=== PATIENT | female | born 1950 | race Caucasian/White ===

== ENCOUNTER 2017-11-18 18:56 | Inpatient (IN) | payer MEDICARE ==
[~2017-11-18] VITALS: Ht 162.6 cm; Wt 55.9 kg
[2017-11-19] MEDS ORDERED: MENT71OI TP (02:48)
[2017-11-19] MEDS ORDERED: ALBU2.5V5 NEB (02:48)
[2017-11-19] MEDS ORDERED: FAMO-63 PO (02:48)
[2017-11-19] MEDS ORDERED: ACET325T9 PO (02:48)
[2017-11-19] MEDS ORDERED: GUAI600T47 PO (02:48)
[2017-11-19] MEDS ORDERED: PRED-220 PO (02:48)
[2017-11-19] MEDS ORDERED: PRED20TA PO (02:48)
[2017-11-19] MEDS ORDERED: IPRA3AMP NEB (02:48)
[2017-11-19] MEDS ORDERED: MAGNESIUM HYDROXIDE 2,400 MG/30 ML ORAL.SUSP. PO PRN (12:45)
[2017-11-19] MEDS ORDERED: MAG HYDROX/AL HYDROX/SIMETH 30 ML ORAL.SUSP PO PRN (12:45)
[2017-11-19] MEDS ORDERED: METHYL SALICYLATE/MENTHOL TOPICAL OINTMENT 29GM TUBE. TP PRN (12:45)
[2017-11-19] MEDS ORDERED: ACETAMINOPHEN 325 MG TABLET PO PRN (13:00)
[2017-11-19] MEDS ORDERED: ALBUTEROL SULFATE 2.5 MG/3 ML NEBU. NEB PRN (13:00)
[2017-11-19 13:15] VITALS: BP 103/61
[2017-11-19] MEDS ORDERED: FLU VACC QS2017-18 (36MOS+)/PF 0.5 ML SYRINGE. VAX IM ONE (13:30)
[2017-11-19 14:08] LABS: BASO % 0 % (0-3); EOS % 0 % (0-3); HEMATOCRIT 39.4 % (36.0-47.0); HEMOGLOBIN 13.1 g/dL (12.0-15.5); LYMPH # 0.6 x10^3/uL (1.0-4.8); LYMPH % 4 % (24-48); MEAN CORPUSCULAR HEMOGLOBIN 29 pg (25-35); MEAN CORPUSCULAR HGB CONC 33 g/dL (31-37); MEAN CORPUSCULAR VOLUME 88 fL (79-100); MONO # 0.5 x10^3/uL (0.0-1.1); MONO % 4 % (0-9); NEUT # 12.1 x10^3uL (1.8-7.7); NEUT % 92 % (31-73); PLATELET COUNT 280 x10^3/uL (140-400); RED BLOOD COUNT 4.48 x10^6/uL (3.50-5.40); RED CELL DISTRIBUTION WIDTH 14.8 % (11.5-14.5); WHITE BLOOD COUNT 13.2 x10^3/uL (4.0-11.0)
[2017-11-19] MEDS: NICOTINE 21MG PATCH. TD SCH (14:55)
--- NOTE | 2017-11-19 15:02 | RAD ---
Indication: Increased white count. Short of breath Technique: Portable upright chest x-ray Comparison: None Findings: Heart is normal in size. Diffuse bilateral coarse interstitial opacities with focal opacity in the right lower lung zone. No pneumothorax. There is mild blunting of the left costophrenic angle. Visualized bony thorax is within normal limits. Impression: Small focal opacity in the right lower lung zone may represent pneumonia or pulmonary nodule. Coarse bilateral interstitial opacities may be secondary to chronic interstitial changes or interstitial infection. Follow-up chest x-ray recommended after medical therapy to ensure resolution.
[2017-11-19 15:03] LABS: ALBUMIN 2.6 g/dL (3.4-5.0); ALBUMIN/GLOBULIN RATIO 0.8 (1.0-1.7); CALCIUM 8.7 mg/dL (8.5-10.1); CREATININE 0.4 mg/dL (0.6-1.0); GFR 159.2; POTASSIUM 4.6 mmol/L (3.5-5.1); TOTAL BILIRUBIN 0.4 mg/dL (0.2-1.0); TOTAL PROTEIN 5.8 g/dL (6.4-8.2)
[2017-11-19 16:06] VITALS: BP 111/55
--- NOTE | 2017-11-19 16:06 | PDOC ---
Exam Note: Ryan Note: Please also refer to the separate dictated note~for this date of service dictated separately.~Patient seen individually. Discussed the patient with Nursing staff reviewed the chart.~Reviewed interim history and current functioning. Reviewed vital signs,~Labs/ Radiology~and current medications noted below. Continue current treatment with the changes noted in the dictated addendum note Assessment: Vital Signs: Vital Signs Date Time Temp Pulse Resp B/P (MAP) Pulse Ox O2 Delivery O2 Flow Rate FiO2 11/19/17 13:15 98.7 98 22 103/61 (75) 91 Nasal Cannula 5.0 Labs: Laboratory Tests Test 11/19/17 13:50 11/19/17 14:47 White Blood Count 13.2 x10^3/uL (4.0-11.0) H Red Blood Count 4.48 x10^6/uL (3.50-5.40) Hemoglobin 13.1 g/dL (12.0-15.5) Hematocrit 39.4 % (36.0-47.0) Mean Corpuscular Volume 88 fL (79-100) Mean Corpuscular Hemoglobin 29 pg (25-35) Mean Corpuscular Hemoglobin Concent 33 g/dL (31-37) Red Cell Distribution Width 14.8 % (11.5-14.5) H Platelet Count 280 x10^3/uL (140-400) Neutrophils (%) (Auto) 92 % (31-73) H Lymphocytes (%) (Auto) 4 % (24-48) L Monocytes (%) (Auto) 4 % (0-9) Eosinophils (%) (Auto) 0 % (0-3) Basophils (%) (Auto) 0 % (0-3) Neutrophils # (Auto) 12.1 x10^3uL (1.8-7.7) H Lymphocytes # (Auto) 0.6 x10^3/uL (1.0-4.8) L Monocytes # (Auto) 0.5 x10^3/uL (0.0-1.1) Eosinophils # (Auto) 0.0 x10^3/uL (0.0-0.7) Basophils # (Auto) 0.0 x10^3/uL (0.0-0.2) Magnesium Level 2.0 mg/dL (1.8-2.4) Sodium Level 134 mmol/L (136-145) L Potassium Level 4.6 mmol/L (3.5-5.1) Chloride Level 91 mmol/L (98-107) L Carbon Dioxide Level 43 mmol/L (21-32) H Anion Gap 0 (6-14) L Blood Urea Nitrogen 29 mg/dL (7-20) H Creatinine 0.4 mg/dL (0.6-1.0) L Estimated GFR (Cockcroft-Gault) 159.2 BUN/Creatinine Ratio 73 (6-20) H Glucose Level 141 mg/dL (70-99) H Calcium Level 8.7 mg/dL (8.5-10.1) Total Bilirubin 0.4 mg/dL (0.2-1.0) Aspartate Amino Transferase (AST) 109 U/L (15-37) H Alanine Aminotransferase (ALT) 221 U/L (14-59) H Alkaline Phosphatase 122 U/L (46-116) H Total Protein 5.8 g/dL (6.4-8.2) L Albumin 2.6 g/dL (3.4-5.0) L Albumin/Globulin Ratio 0.8 (1.0-1.7) L Current Medications: Meds: Current Medications Acetaminophen (Tylenol) 650 mg PRN Q6HRS PRN PO PAIN / TEMP; Start 11/19/17 at 12:45 Multi-Ingredient Ointment (Analgesic [place]) 1 jerome PRN QID PRN TP MUSCLE PAIN; Start 11/19/17 at 12:45 Al Hydroxide/Mg Hydroxide (Mylanta Plus Xs) 15 ml PRN AFTMEALHC PRN PO DYSPEPSIA; Start 11/19/17 at 12:45 Magnesium Hydroxide (Milk Of Magnesia) 2,400 mg PRN QHS PRN PO CONSTIPATION; Start 11/19/17 at 12:45 Nicotine (Nicoderm Cq 21mg) 1 patch DAILY TD Last administered on 11/19/17at 14: 55; Start 11/19/17 at 13:30 Acetaminophen (Tylenol) 650 mg PRN Q6HRS PRN PO PAIN / TEMP; Start 11/19/17 at 13:00; Stop 11/19/17 at 13:11; Status DC Albuterol Sulfate (Ventolin) 2.5 mg PRN Q4HRS PRN NEB SHORTNESS OF BREATH; Start 11/19/17 at 13:00 Famotidine (Pepcid) 20 mg DAILY PO ; Start 11/20/17 at 09:00 Guaifenesin (Mucinex Er) 600 mg BID PO ; Start 11/19/17 at 21:00 Albuterol/ Ipratropium (Duoneb) 3 ml Q4HRS W/A NEB ; Start 11/19/17 at 14:00 Calamine/Phenol (Calmoseptine) 1 jerome BID TP ; Start 11/19/17 at 21:00; Stop at 21:00; Status DC Prednisone (Prednisone) 10 mg DAILY PO ; Start 11/20/17 at 09:00; Stop 11/20/17 at 09:00; Status DC Prednisone (Prednisone) 30 mg DAILY PO ; Start 11/20/17 at 09:00; Stop 11/20/17 at 09:00; Status DC Prednisone (Prednisone) 20 mg Taper DAILY PO ; Start 11/20/17 at 09:00; Stop at 08:59 Influenza Virus Vaccine Quadrival (Fluarix Quad [id number] Syringe) 0.5 ml ONCE ONCE VAX IM ; Start 11/19/17 at 13:30; Stop 11/19/17 at 13:32; Status DC Calamine/Phenol (Calmoseptine) 1 jerome BID TP ; Start 11/19/17 at 21:00 Active Scripts Active Reported Prednisone 10 Mg Tablet 10 Mg PO DAILY 4 Days To be Started after completion of 20mg Daily order is complete. Prednisone 20 Mg Tablet 20 Mg PO DAILY 4 Days To be started after Completion of 30mg Daily order is complete Prednisone 10 Mg Tablet 30 Mg PO DAILY 4 Days Calmoseptine Ointment (Menthol/Zinc Oxide) 71 Gm Oint...g. 1 Jerome TP BID Duoneb 0.5-3(2.5) Mg/3 Ml (Albuterol/Ipratropium) 3 Ml Ampul.neb 3 Ml NEB Q4HRS W/A Mucinex (Guaifenesin) 600 Mg Tablet.er 600 Mg PO BID Pepcid (Famotidine) 20 Mg Tablet 20 Mg PO DAILY Albuterol Sulfate Neb Soln (Albuterol Sulfate) 2.5 Mg/3 Ml Vial.neb 2.5 Mg NEB PRN Q4HRS PRN Tylenol (Acetaminophen) 325 Mg Tablet 650 Mg PO PRN Q6HRS PRN I have reviewed the current psychotropics carefully including drug interactions. Risk benefit ratio favors no change other than as noted in my dictated progress note. Diagnosis: Problems: (1) Anxiety disorder (2) Dementia in Alzheimer's disease with depression (3) Dementia in Alzheimer's disease with delusions (4) Dementia, vascular, with delusions (5) Dementia, vascular, with depression (6) Major depressive disorder, recurrent episode (7) Dementia associated with alcoholism with behavioral disturbance DEMETRIUS JURADO MD Nov 19, 2017 16:06
[2017-11-19] MEDS: IPRATRPIUM/ALBUTEROL 0.5/2.5MG 3 ML NEBU. NEB SCH ×3 (16:25→21:44)
--- NOTE | 2017-11-19 16:30 | EKG ---
[address] [address] Test Date: 2017-11-19 Test Time: 16:22:30 Pat Name: MICHAEL GUERRIER Department: Room: [address] [place] [address] Gender: F [employer]: : 1950 Requested By: DEMETRIUS JURADO Order Number: [id number] Reading MD: Nakul Lewis Measurements Intervals [place] Rate: 96 P: 0 NH: 144 QRS: 40 QRSD: 68 T: 37 QT: 338 QTc: 433 Interpretive Statements SINUS RHYTHM QRS(T) CONTOUR ABNORMALITY CONSIDER ANTEROSEPTAL MYOCARDIAL DAMAGE CONSIDER INFERIOR MYOCARDIAL DAMAGE POSSIBLY ABNORMAL ECG RI6.01 No previous ECG available for comparison Electronically Signed On 12-04-2017 16:14:36 CDT by Nakul Lewis
--- NOTE | 2017-11-19 19:37 | RAD ---
Indication: Rule out DVT. TECHNIQUE: Grayscale, color Doppler and spectral waveform images of the bilateral lower extremity deep veins. COMPARISON: None FINDINGS: Right side: The interrogated right lower extremity deep veins are compressible and demonstrate evidence of blood flow with normal respiratory variation and response to augmentation. Left side: The common femoral vein, proximal and mid superficial femoral veins are compressible and demonstrate evidence of blood flow with normal respiratory variation and response augmentation. The distal superficial femoral vein and popliteal vein are not confidently visualized. Evaluation of calf veins Limited due to patient's intolerance and unable to sustain position. IMPRESSION: Suboptimal evaluation of left distal SFV, popliteal vein and calf veins due to edema and patient intolerance to pain. DVT in these segments of the vein not ruled out. Rest of the left lower extremity deep veins and right lower extremity deep veins demonstrate no sonographic evidence of acute DVT. Electronically signed by: Myles Yuen DO (11/19/2017 7:34 PM) [facility]
[2017-11-19 20:30] LABS: BGAS PH 7.5 (7.35-7.45)
[2017-11-19] MEDS: MENTHOL/ZINC OXIDE TOPICAL OINTMENT 113GM JAR. TP SCH (21:00)
[2017-11-19] MEDS ORDERED: MENTHOL/ZINC OXIDE TOPICAL OINTMENT 113GM JAR. TP SCH (21:00)
[2017-11-19] MEDS: ENOXAPARIN 40 MG/0.4 ML DISP.SYRIN. SQ SCH (21:04)
[2017-11-19 21:06] LABS: T3 TOTAL 64 ng/dL (71-180); THYROXINE 5.9 ug/dL (4.5-12.0)
--- NOTE | 2017-11-19 21:40 | CONS ---
DATE OF CONSULTATION: 11/19/2017 REASON FOR CONSULTATION: Medical management. HISTORY OF PRESENT ILLNESS: The patient is a 67-year-old female patient who was transferred to [facility] from [facility] where she was originally admitted on 11/09/2017. Apparently, the patient lives with her significant other and she was found by her children filthy. Her hair was so matted that they could not work it out. She was very withdrawn and depressed, but she denied any actually complaint except that she is hungry. She was extensively investigated at [facility] and was admitted there with community-acquired pneumonia and COPD exacerbation as well as acute hypoxic hypercapnic respiratory failure. She was treated with Rocephin and Zithromax as well as IV steroids. Apparently, she was requiring 12 liters of oxygen by nasal cannula to maintain her saturation and this has been titrated down to 5 liters by nasal cannula during her acute stay and has completed azithromycin and ceftriaxone. Her steroid dose was tapered down and she was also diagnosed with failure to thrive and there was some concern also about her safety at home given that her house has been condemned by the [facility] and was transferred to our facility. There is no mention of any psychiatric disturbances or behavioral disturbances and was admitted to [facility] for inpatient psychiatric stabilization. PAST MEDICAL HISTORY: Significant for chronic obstructive pulmonary disease. She has history of atrial fibrillation, dyslipidemia, hypertension, and myocardial infarction. She is known to have chronic constipation as well as gastroesophageal reflux disease and chronic pelvic, chronic back pain, osteoarthritis, and history of allergic rhinitis. PAST SURGICAL HISTORY: Significant for partial hysterectomy. She was . She has 4 live births. She has one miscarriage. FAMILY HISTORY: Positive for coronary artery disease and hyperlipidemia as well as alcoholism. SOCIAL HISTORY: She lives with her significant other. She continued to smoke heavily up to 3 packs a day. She does not use smokeless tobacco. She drinks 2 drinks of alcohol per day. Denied any substance abuse. MEDICATIONS AND ALLERGIES: She is allergic to DIPHENHYDRAMINE and was transferred from [facility] to continue on following medications: She was on Tylenol 650 mg every 6 hours, albuterol sulfate by nebulizer every 4 hours, famotidine 20 mg once a day, Mucinex 600 mg twice a day, DuoNeb 0.5-2.5 mg in 3 mL by nebulizer every 4 hours, prednisone 30 mg once a day in a tapering fashion and she is on Calmoseptine ointment applied twice a day to redness. REVIEW OF SYSTEMS: As per history of present illness. PHYSICAL EXAMINATION GENERAL: When I saw her this afternoon, she was resting slightly propped up in bed, slightly tachypneic, but there is no pallor, jaundice, cyanosis, or thyromegaly. No jugular distention, but mild bilateral lower limb edema. VITAL SIGNS: Her heart rate was 98, blood pressure was 111/55, temperature of 97.9, respiratory rate 24, and oxygen saturation was 94% on 5 liters of oxygen by nasal cannula. HEAD: Examination of the head, eyes, ears, nose, and throat showed normocephalic, atraumatic. NECK: Supple. HEART: Showed normal first and second heart sounds with no gallop, rub, or murmur. CHEST: Clear to auscultation. No crepitation or rhonchi. ABDOMEN: Slight distended, soft, nontender. No guarding or rigidity. No organomegaly. All hernial orifice intact. Bowel sounds normal. NEUROLOGIC: She is very withdrawn, but responds appropriately. All her cranial nerves are intact. She moves extremities without difficulty. She apparently is able to walk with a walker with standby assist. LABORATORY DATA: As of this morning showed her white cell count was 13,200, hemoglobin 13, hematocrit 39, MCV 88, and platelet count of with a manual differential showed 92% polymorphs, 4% lymphocytes, and 4% monocytes. Her chemistry showed a serum sodium 134, potassium 4.6, chloride 81, bicarbonate 43, anion gap of 0, BUN 29, creatinine was 0.4 Estimated GFR was 159 mL per minute. Her glucose was 141. Calcium was 8.7, magnesium 2. Total bilirubin is normal; however, AST, ALT, alkaline phosphatase are all elevated. Her total protein was 5.8 and albumin was 2.6. Her chest x-ray showed that there is small focal opacity in the right lower lung zone, may represent pneumonia or pulmonary nodule, has coarse bilateral interstitial opacities, may be secondary to chronic interstitial changes or interstitial infection. Followup chest x-ray is recommended. She has no pneumothorax. There is mild blunting of the left costophrenic angle. Visualized bony thorax is within normal range. IMPRESSION AND PLAN: In summary, this is a 67-year-old female patient who was transferred from [facility] where she was admitted with community-acquired pneumonia, chronic obstructive pulmonary disease exacerbation, acute hypoxic hypercapnic respiratory failure. When she was admitted there, her liver enzymes were normal. By the time she arrived here, her liver enzymes have dramatically risen. She apparently was on heparin; however, that was discontinued prior to transferring her to our facility. She has bilateral lower extremity edema and given her poor mobility and high requirement of oxygen, my plan is to arrange for her to have ABGs and bilateral lower extremity venous Doppler ultrasound. I will continue meanwhile with all this medication that she is on, probably put her on Lovenox at least for DVT prophylaxis and if there is any evidence of hypercapnic hypoxic respiratory failure or she has DVTs, we will probably have to transfer her down to stabilize her medically before she comes here. RADHA ALICEA MD DR: STANTON/denny JOB#: [id number] / [id number]
--- NOTE | 2017-11-19 22:27 | HP ---
ADMIT DATE: 11/19/2017 This note covers elements not covered in my initial note of 11/19/2017. The patient was seen at afternoon of 11/19/2017 for this evaluation. IDENTIFYING DATA: The patient is a 67-year-old female who is referred to us from [facility], where she was on the longterm care by Dr. Tao on account of very significant symptoms of depression, withdrawal from activity, refusing to use oxygen, failure of self care, increased confusion, though no past diagnosis of dementia is noted. The patient has been verbally abusive to staff, noncompliant with medications. She initially presented from home to the [facility] with hypoxemia, failure to thrive, pneumonia and chronic COPD. She had been living at home under very unhealthy conditions with sores on her bottom hair, being matted. House was described as being "awful." There is a history of daily alcohol usage of 2+ drinks a day. The patient was medically stabilized at [facility], transferred to the swing bed, been noncompliant with treatment and rehab there and then referred to us for psychiatric stabilization. CHIEF COMPLAINT: "No." The patient refuses to answer or interact to any significant extent. It is notable; however, that she does have elevated white cell count at 13.0. Chest x-ray shows pneumonia or lung nodule and Dr. Steward has been consulted for further medical management. Possible transfer to the medical/surgical floor. HISTORY OF PRESENT ILLNESS: Reportedly, the patient lives at home, has been drinking as noted above. Home has been under very unhealthy conditions and she has had no regular hygiene or nutrition before she went to [facility]. She has been depressed, withdrawn, possibly psychotic. No active suicidal or homicidal ideation other than passive suicidal ideation. No clear history of bipolar disorder. There is a history of progressive memory deficits, but the extent is unclear as it overlaps with dementia and depression. She had lost an extensive amount of weight at home. PAST PSYCHIATRIC HISTORY: As above. MEDICAL HISTORY: Positive for leukocytosis, possible pneumonia, GERD, COPD, chronic hypoxia, failure to thrive, skin breakdown on coccyx, candidiasis, current smoker, history of bronchitis. PAST SURGICAL HISTORY: Positive for hysterectomy. DIET: Regular. Accu-Cheks: None. CODE STATUS: Full code. CURRENT PSYCHOTROPICS: Negative. FAMILY HISTORY: Noncontributory. SOCIAL HISTORY: As noted above including alcohol usage and smoker. REACTION TO HOSPITALIZATION: The patient oblivious of these assets, reportedly was cognitively more oriented in the recent past. MENTAL STATUS EXAM: The patient was seen individually on afternoon of 11/19/2017. She is not very verbally nor interactive. She appears quite depressed, confused. Insight, judgment, recent and remote memory, attention, concentration, fund of knowledge poor, consistent with her diagnoses. IMPRESSION: Major depressive disorder, recurrent, severe with psychotic features; major neurocognitive disorder, possibly alcohol related, vascular with depression, delusion, behavioral disturbance; anxiety disorder, unspecified; impulse control disorder, unspecified; pneumonia, leukocytosis. Rest unchanged from above. PLAN: Admit to Geropsychiatry Unit at [facility]. I will see the patient daily individually, medical followup per Dr. Steward. Observe the patient's baseline and then make changes in psychotropics as clinically indicated. DEMETRIUS JURADO MD DR: OMAR/denny JOB#: [id number] / [id number]
--- NOTE | 2017-11-19 22:53 | PDOC ---
Exam Note: Ryan Note: Please also refer to the separate dictated note~for this date of service dictated separately.~Patient seen individually. Discussed the patient with Nursing staff reviewed the chart.~Reviewed interim history and current functioning. Reviewed vital signs,~Labs/ Radiology~and current medications noted below. Continue current treatment with the changes noted in the dictated addendum note Assessment: Vital Signs: Vital Signs Date Time Temp Pulse Resp B/P (MAP) Pulse Ox O2 Delivery O2 Flow Rate FiO2 11/19/17 21:45 91 Nasal Cannula 3.0 11/19/17 16:06 97.9 98 24 111/55 (73) Labs: Laboratory Tests Test 11/19/17 13:50 11/19/17 14:47 11/19/17 20:10 White Blood Count 13.2 x10^3/uL (4.0-11.0) H Red Blood Count 4.48 x10^6/uL (3.50-5.40) Hemoglobin 13.1 g/dL (12.0-15.5) Hematocrit 39.4 % (36.0-47.0) Mean Corpuscular Volume 88 fL (79-100) Mean Corpuscular Hemoglobin 29 pg (25-35) Mean Corpuscular Hemoglobin Concent 33 g/dL (31-37) Red Cell Distribution Width 14.8 % (11.5-14.5) H Platelet Count 280 x10^3/uL (140-400) Neutrophils (%) (Auto) 92 % (31-73) H Lymphocytes (%) (Auto) 4 % (24-48) L Monocytes (%) (Auto) 4 % (0-9) Eosinophils (%) (Auto) 0 % (0-3) Basophils (%) (Auto) 0 % (0-3) Neutrophils # (Auto) 12.1 x10^3uL (1.8-7.7) H Lymphocytes # (Auto) 0.6 x10^3/uL (1.0-4.8) L Monocytes # (Auto) 0.5 x10^3/uL (0.0-1.1) Eosinophils # (Auto) 0.0 x10^3/uL (0.0-0.7) Basophils # (Auto) 0.0 x10^3/uL (0.0-0.2) Magnesium Level 2.0 mg/dL (1.8-2.4) Thyroxine (T4) 5.9 ug/dL (4.5-12.0) Total Triiodothyronine (TT3) 64 ng/dL (71-180) L Rapid Plasma Reagin Pending Sodium Level 134 mmol/L (136-145) L Potassium Level 4.6 mmol/L (3.5-5.1) Chloride Level 91 mmol/L (98-107) L Carbon Dioxide Level 43 mmol/L (21-32) H Anion Gap 0 (6-14) L Blood Urea Nitrogen 29 mg/dL (7-20) H Creatinine 0.4 mg/dL (0.6-1.0) L Estimated GFR (Cockcroft-Gault) 159.2 BUN/Creatinine Ratio 73 (6-20) H Glucose Level 141 mg/dL (70-99) H Calcium Level 8.7 mg/dL (8.5-10.1) Total Bilirubin 0.4 mg/dL (0.2-1.0) Aspartate Amino Transferase (AST) 109 U/L (15-37) H Alanine Aminotransferase (ALT) 221 U/L (14-59) H Alkaline Phosphatase 122 U/L (46-116) H Total Protein 5.8 g/dL (6.4-8.2) L Albumin 2.6 g/dL (3.4-5.0) L Albumin/Globulin Ratio 0.8 (1.0-1.7) L Blood pH 7.50 (7.35-7.45) H Blood Gas PCO2 66 mmHg (35-45) *H Blood Gas PO2 89 mmHg (80-100) Blood Gas HCO3 51 mmol/L (22-26) H Arterial Bld O2 Saturation (Calc) 97 % (92-99) FiO2 40 % Current Medications: Meds: Current Medications Acetaminophen (Tylenol) 650 mg PRN Q6HRS PRN PO PAIN / TEMP; Start 11/19/17 at 12:45 Multi-Ingredient Ointment (Analgesic [place]) 1 jerome PRN QID PRN TP MUSCLE PAIN; Start 11/19/17 at 12:45 Al Hydroxide/Mg Hydroxide (Mylanta Plus Xs) 15 ml PRN AFTMEALHC PRN PO DYSPEPSIA; Start 11/19/17 at 12:45 Magnesium Hydroxide (Milk Of Magnesia) 2,400 mg PRN QHS PRN PO CONSTIPATION; Start 11/19/17 at 12:45 Nicotine (Nicoderm Cq 21mg) 1 patch DAILY TD Last administered on 11/19/17at 14: 55; Start 11/19/17 at 13:30 Acetaminophen (Tylenol) 650 mg PRN Q6HRS PRN PO PAIN / TEMP; Start 11/19/17 at 13:00; Stop 11/19/17 at 13:11; Status DC Albuterol Sulfate (Ventolin) 2.5 mg PRN Q4HRS PRN NEB SHORTNESS OF BREATH; Start 11/19/17 at 13:00 Famotidine (Pepcid) 20 mg DAILY PO ; Start 11/20/17 at 09:00 Guaifenesin (Mucinex Er) 600 mg BID PO Last administered on 11/19/17at 21:03; Start 11/19/17 at 21:00 Albuterol/ Ipratropium (Duoneb) 3 ml Q4HRS W/A NEB Last administered on at 21:44; Start 11/19/17 at 14:00 Calamine/Phenol (Calmoseptine) 1 jerome BID TP ; Start 11/19/17 at 21:00; Stop at 21:00; Status DC Prednisone (Prednisone) 10 mg DAILY PO ; Start 11/20/17 at 09:00; Stop 11/20/17 at 09:00; Status DC Prednisone (Prednisone) 30 mg DAILY PO ; Start 11/20/17 at 09:00; Stop 11/20/17 at 09:00; Status DC Prednisone (Prednisone) 20 mg Taper DAILY PO ; Start 11/20/17 at 09:00; Stop at 08:59 Influenza Virus Vaccine Quadrival (Fluarix Quad [id number] Syringe) 0.5 ml ONCE ONCE VAX IM ; Start 11/19/17 at 13:30; Stop 11/19/17 at 17:52; Status DC Calamine/Phenol (Calmoseptine) 1 jreome BID TP ; Start 11/19/17 at 21:00 Enoxaparin Sodium (Lovenox) 40 mg Q24H SQ Last administered on 11/19/17at 21:04 ; Start 11/19/17 at 21:00 Influenza Virus Vaccine Quadrival (Fluarix Quad [id number] Syringe) 0.5 ml ONCE ONCE VAX IM ; Start 11/20/17 at 08:00; Stop 11/20/17 at 08:01 Active Scripts Active Reported Prednisone 10 Mg Tablet 10 Mg PO DAILY 4 Days To be Started after completion of 20mg Daily order is complete. Prednisone 20 Mg Tablet 20 Mg PO DAILY 4 Days To be started after Completion of 30mg Daily order is complete Prednisone 10 Mg Tablet 30 Mg PO DAILY 4 Days Calmoseptine Ointment (Menthol/Zinc Oxide) 71 Gm Oint...g. 1 Jerome TP BID Duoneb 0.5-3(2.5) Mg/3 Ml (Albuterol/Ipratropium) 3 Ml Ampul.neb 3 Ml NEB Q4HRS W/A Mucinex (Guaifenesin) 600 Mg Tablet.er 600 Mg PO BID Pepcid (Famotidine) 20 Mg Tablet 20 Mg PO DAILY Albuterol Sulfate Neb Soln (Albuterol Sulfate) 2.5 Mg/3 Ml Vial.neb 2.5 Mg NEB PRN Q4HRS PRN Tylenol (Acetaminophen) 325 Mg Tablet 650 Mg PO PRN Q6HRS PRN I have reviewed the current psychotropics carefully including drug interactions. Risk benefit ratio favors no change other than as noted in my dictated progress note. Diagnosis: Problems: (1) Anxiety disorder (2) Major depressive disorder, recurrent episode (3) Dementia, vascular, with depression (4) Dementia, vascular, with delusions (5) Dementia in Alzheimer's disease with depression (6) Dementia in Alzheimer's disease with delusions (7) Dementia associated with alcoholism with behavioral disturbance DEMETRIUS JURADO MD Nov 19, 2017 22:53
[2017-11-20 02:11] LABS: HEMOGLOBIN A1C 6.1 % (4.8-5.6)
[2017-11-20] MEDS: IPRATRPIUM/ALBUTEROL 0.5/2.5MG 3 ML NEBU. NEB SCH ×5 (05:53→21:14)
[2017-11-20 06:52] VITALS: BP 106/57
[2017-11-20] MEDS ORDERED: FLU VACC QS2017-18 (36MOS+)/PF 0.5 ML SYRINGE. VAX IM ONE (08:00)
[2017-11-20] MEDS: NICOTINE 21MG PATCH. TD SCH (08:06)
[2017-11-20] MEDS: FAMOTIDINE 20 MG TABLET PO SCH (08:08)
[2017-11-20] MEDS: predniSONE 20 MG TABLET PO SCH (08:08)
[2017-11-20 08:17] LABS: BASO % 0 % (0-3); EOS # 0.1 x10^3/uL (0.0-0.7); EOS % 1 % (0-3); HEMATOCRIT 39.5 % (36.0-47.0); HEMOGLOBIN 13.1 g/dL (12.0-15.5); LYMPH # 3.1 x10^3/uL (1.0-4.8); LYMPH % 31 % (24-48); MEAN CORPUSCULAR HEMOGLOBIN 30 pg (25-35); MEAN CORPUSCULAR HGB CONC 33 g/dL (31-37); MEAN CORPUSCULAR VOLUME 89 fL (79-100); MONO # 0.9 x10^3/uL (0.0-1.1); MONO % 9 % (0-9); NEUT # 5.9 x10^3uL (1.8-7.7); NEUT % 59 % (31-73); PLATELET COUNT 275 x10^3/uL (140-400); RED BLOOD COUNT 4.43 x10^6/uL (3.50-5.40); RED CELL DISTRIBUTION WIDTH 14.8 % (11.5-14.5)
[2017-11-20 08:25] LABS: ALBUMIN 2.5 g/dL (3.4-5.0); ALBUMIN/GLOBULIN RATIO 0.8 (1.0-1.7); CALCIUM 8.7 mg/dL (8.5-10.1); CREATININE 0.4 mg/dL (0.6-1.0); GFR 159.2; POTASSIUM 4.1 mmol/L (3.5-5.1); TOTAL BILIRUBIN 0.5 mg/dL (0.2-1.0); TOTAL PROTEIN 5.5 g/dL (6.4-8.2)
[2017-11-20] MEDS: MENTHOL/ZINC OXIDE TOPICAL OINTMENT 113GM JAR. TP SCH ×2 (09:00→21:00)
[2017-11-20] MEDS ORDERED: predniSONE 10 MG TABLET PO SCH ×2 (09:00)
[2017-11-20 10:16] LABS: BACTERIA,URINE 0 /HPF (0-FEW); BILIRUBIN,URINE NEG (NEG); CLARITY,URINE CLEAR; COLOR,URINE YELLOW; GLUCOSE,URINE NEG (NEG); HYALINE CASTS, URINE OCC /HPF; NITRITE,URINE NEG (NEG); RBC,URINE OCC /HPF (0-2); SQUAMOUS EPITHELIAL CELL,UR FEW /LPF; UROBILINOGEN,URINE 0.2 mg/dL (0.2 mg/dL); YEAST,URINE PRESENT /HPF
[2017-11-20 16:08] VITALS: BP 94/57
--- NOTE | 2017-11-20 20:52 | PDOC ---
Exam Note: Ryan Note: Please also refer to the separate dictated note~for this date of service dictated separately.~Patient seen individually. Discussed the patient with Nursing staff reviewed the chart.~Reviewed interim history and current functioning. Reviewed vital signs,~Labs/ Radiology~and current medications noted below. Continue current treatment with the changes noted in the dictated addendum note Assessment: Vital Signs: Vital Signs Date Time Temp Pulse Resp B/P (MAP) Pulse Ox O2 Delivery O2 Flow Rate FiO2 11/20/17 16:28 96 Nasal Cannula 4.0 11/20/17 16:08 98.2 109 16 94/57 (69) I&O Intake and Output 11/20/17 07:00 Intake Total 240 ml Balance 240 ml Intake Oral 240 ml Labs: Laboratory Tests Test 11/20/17 07:38 11/20/17 09:45 White Blood Count 10.0 x10^3/uL (4.0-11.0) Red Blood Count 4.43 x10^6/uL (3.50-5.40) Hemoglobin 13.1 g/dL (12.0-15.5) Hematocrit 39.5 % (36.0-47.0) Mean Corpuscular Volume 89 fL (79-100) Mean Corpuscular Hemoglobin 30 pg (25-35) Mean Corpuscular Hemoglobin Concent 33 g/dL (31-37) Red Cell Distribution Width 14.8 % (11.5-14.5) H Platelet Count 275 x10^3/uL (140-400) Neutrophils (%) (Auto) 59 % (31-73) Lymphocytes (%) (Auto) 31 % (24-48) Monocytes (%) (Auto) 9 % (0-9) Eosinophils (%) (Auto) 1 % (0-3) Basophils (%) (Auto) 0 % (0-3) Neutrophils # (Auto) 5.9 x10^3uL (1.8-7.7) Lymphocytes # (Auto) 3.1 x10^3/uL (1.0-4.8) Monocytes # (Auto) 0.9 x10^3/uL (0.0-1.1) Eosinophils # (Auto) 0.1 x10^3/uL (0.0-0.7) Basophils # (Auto) 0.0 x10^3/uL (0.0-0.2) Sodium Level 136 mmol/L (136-145) Potassium Level 4.1 mmol/L (3.5-5.1) Chloride Level 95 mmol/L (98-107) L Carbon Dioxide Level 42 mmol/L (21-32) H Anion Gap -1 (6-14) L Blood Urea Nitrogen 17 mg/dL (7-20) Creatinine 0.4 mg/dL (0.6-1.0) L Estimated GFR (Cockcroft-Gault) 159.2 BUN/Creatinine Ratio 43 (6-20) H Glucose Level 75 mg/dL (70-99) Calcium Level 8.7 mg/dL (8.5-10.1) Total Bilirubin 0.5 mg/dL (0.2-1.0) Aspartate Amino Transferase (AST) 63 U/L (15-37) H Alanine Aminotransferase (ALT) 188 U/L (14-59) H Alkaline Phosphatase 108 U/L (46-116) OT-Idw-Q-Type Natriuretic Peptide 781 pg/mL (0-124) H Total Protein 5.5 g/dL (6.4-8.2) L Albumin 2.5 g/dL (3.4-5.0) L Albumin/Globulin Ratio 0.8 (1.0-1.7) L Triglycerides Level 129 mg/dL (0-150) Cholesterol Level 259 mg/dL (0-200) H LDL Cholesterol, Calculated 143 mg/dL (0-100) H VLDL Cholesterol, Calculated 25 mg/dL (0-40) Non-HDL Cholesterol Calculated 168 mg/dL (0-129) H HDL Cholesterol 91 mg/dL (40-60) H Cholesterol/HDL Ratio 2.0 Urine Collection Type Unknown Urine Color Yellow Urine Clarity Clear Urine pH 8.5 Urine Specific [place] 1.015 Urine Protein Neg (NEG-TRACE) Urine Glucose (UA) Neg mg/dL (NEG) Urine Ketones (Stick) Neg mg/dL (NEG) Urine Blood Neg (NEG) Urine Nitrite Neg (NEG) Urine Bilirubin Neg (NEG) Urine Urobilinogen Dipstick 0.2 mg/dL (0.2 mg/dL) Urine Leukocyte Esterase Neg (NEG) Urine RBC Occ /HPF (0-2) Urine WBC 1-4 /HPF (0-4) Urine Squamous Epithelial Cells Few /LPF Urine Transitional Epithelial Cells Occ /LPF Urine Bacteria 0 /HPF (0-FEW) Urine Hyaline Casts Occ /HPF Urine Mucus Slight /LPF Urine Yeast Present /HPF Current Medications: Meds: Current Medications Acetaminophen (Tylenol) 650 mg PRN Q6HRS PRN PO PAIN / TEMP; Start 11/19/17 at 12:45 Multi-Ingredient Ointment (Analgesic [place]) 1 jerome PRN QID PRN TP MUSCLE PAIN; Start 11/19/17 at 12:45 Al Hydroxide/Mg Hydroxide (Mylanta Plus Xs) 15 ml PRN AFTMEALHC PRN PO DYSPEPSIA; Start 11/19/17 at 12:45 Magnesium Hydroxide (Milk Of Magnesia) 2,400 mg PRN QHS PRN PO CONSTIPATION; Start 11/19/17 at 12:45 Nicotine (Nicoderm Cq 21mg) 1 patch DAILY TD Last administered on 11/20/17at 08: 06; Start 11/19/17 at 13:30 Acetaminophen (Tylenol) 650 mg PRN Q6HRS PRN PO PAIN / TEMP; Start 11/19/17 at 13:00; Stop 11/19/17 at 13:11; Status DC Albuterol Sulfate (Ventolin) 2.5 mg PRN Q4HRS PRN NEB SHORTNESS OF BREATH; Start 11/19/17 at 13:00 Famotidine (Pepcid) 20 mg DAILY PO Last administered on 11/20/17at 08:08; Start 11/20/17 at 09:00 Guaifenesin (Mucinex Er) 600 mg BID PO Last administered on 11/20/17at 08:06; Start 11/19/17 at 21:00 Albuterol/ Ipratropium (Duoneb) 3 ml Q4HRS W/A NEB Last administered on at 16:26; Start 11/19/17 at 14:00 Calamine/Phenol (Calmoseptine) 1 jerome BID TP ; Start 11/19/17 at 21:00; Stop at 21:00; Status DC Prednisone (Prednisone) 10 mg DAILY PO ; Start 11/20/17 at 09:00; Stop 11/20/17 at 09:00; Status DC Prednisone (Prednisone) 30 mg DAILY PO ; Start 11/20/17 at 09:00; Stop 11/20/17 at 09:00; Status DC Prednisone (Prednisone) 20 mg Taper DAILY PO Last administered on 11/20/17at 08: 08; Start 11/20/17 at 09:00; Stop 11/28/17 at 08:59 Influenza Virus Vaccine Quadrival (Fluarix Quad Syringe) 0.5 ml ONCE ONCE VAX IM ; Start 11/19/17 at 13:30; Stop 11/19/17 at 17:52; Status DC Calamine/Phenol (Calmoseptine) 1 jerome BID TP ; Start 11/19/17 at 21:00 Enoxaparin Sodium (Lovenox) 40 mg Q24H SQ Last administered on 11/19/17at 21:04 ; Start 11/19/17 at 21:00 Influenza Virus Vaccine Quadrival (Fluarix Quad Syringe) 0.5 ml ONCE ONCE VAX IM Last administered on 11/20/17at 18:43; Start 11/20/17 at 08:00; Stop 11/20/17 at 08:01; Status DC Betamethasone/ Clotrimazole (Lotrisone) 1 jerome BID TP ; Start 11/20/17 at 21:00 Prenat Multivit/ [place]/Iron/Folic Ac (Multivitamin ) 1 tab DAILY PO ; Start 11/21/17 at 09:00 Ascorbic Acid (Vitamin C) 500 mg DAILY PO ; Start 11/21/17 at 09:00 Zinc Sulfate (Orazinc) 220 mg DAILY PO ; Start 11/21/17 at 09:00 Active Scripts Active Reported Prednisone 10 Mg Tablet 10 Mg PO DAILY 4 Days To be Started after completion of 20mg Daily order is complete. Prednisone 20 Mg Tablet 20 Mg PO DAILY 4 Days To be started after Completion of 30mg Daily order is complete Prednisone 10 Mg Tablet 30 Mg PO DAILY 4 Days Calmoseptine Ointment (Menthol/Zinc Oxide) 71 Gm Oint...g. 1 Jerome TP BID Duoneb 0.5-3(2.5) Mg/3 Ml (Albuterol/Ipratropium) 3 Ml Ampul.neb 3 Ml NEB Q4HRS W/A Mucinex (Guaifenesin) 600 Mg Tablet.er 600 Mg PO BID Pepcid (Famotidine) 20 Mg Tablet 20 Mg PO DAILY Albuterol Sulfate Neb Soln (Albuterol Sulfate) 2.5 Mg/3 Ml Vial.neb 2.5 Mg NEB PRN Q4HRS PRN Tylenol (Acetaminophen) 325 Mg Tablet 650 Mg PO PRN Q6HRS PRN I have reviewed the current psychotropics carefully including drug interactions. Risk benefit ratio favors no change other than as noted in my dictated progress note. Diagnosis: Problems: (1) Anxiety disorder (2) Major depressive disorder, recurrent episode (3) Dementia, vascular, with depression (4) Dementia, vascular, with delusions (5) Dementia in Alzheimer's disease with depression (6) Dementia in Alzheimer's disease with delusions (7) Dementia associated with alcoholism with behavioral disturbance DEMETRIUS JURADO MD Nov 20, 2017 20:52
[2017-11-20] MEDS: CLOTRIMAZOLE/BETAMETH 1%-0.05% TOPICAL CREAM 15GM TUBE. TP SCH (21:00)
[2017-11-20] MEDS: ENOXAPARIN 40 MG/0.4 ML DISP.SYRIN. SQ SCH (21:25)
[2017-11-21] MEDS: IPRATRPIUM/ALBUTEROL 0.5/2.5MG 3 ML NEBU. NEB SCH ×5 (05:51→21:54)
[2017-11-21 06:21] VITALS: BP 127/77
[2017-11-21 06:44] LABS: BASO % 0 % (0-3); EOS # 0.1 x10^3/uL (0.0-0.7); EOS % 1 % (0-3); HEMATOCRIT 34.3 % (36.0-47.0); HEMOGLOBIN 11.5 g/dL (12.0-15.5); LYMPH # 2.9 x10^3/uL (1.0-4.8); LYMPH % 28 % (24-48); MEAN CORPUSCULAR HEMOGLOBIN 30 pg (25-35); MEAN CORPUSCULAR HGB CONC 34 g/dL (31-37); MEAN CORPUSCULAR VOLUME 89 fL (79-100); MONO % 10 % (0-9); NEUT # 6.2 x10^3uL (1.8-7.7); NEUT % 61 % (31-73); PLATELET COUNT 264 x10^3/uL (140-400); RED BLOOD COUNT 3.86 x10^6/uL (3.50-5.40); RED CELL DISTRIBUTION WIDTH 14.8 % (11.5-14.5); WHITE BLOOD COUNT 10.3 x10^3/uL (4.0-11.0)
[2017-11-21 06:55] LABS: ALBUMIN 2.2 g/dL (3.4-5.0); ALBUMIN/GLOBULIN RATIO 0.8 (1.0-1.7); CALCIUM 8.2 mg/dL (8.5-10.1); CREATININE 0.3 mg/dL (0.6-1.0); GFR 221.9; TOTAL BILIRUBIN 0.3 mg/dL (0.2-1.0)
[2017-11-21] MEDS: CLOTRIMAZOLE/BETAMETH 1%-0.05% TOPICAL CREAM 15GM TUBE. TP SCH ×2 (09:00→19:42)
[2017-11-21] MEDS: MENTHOL/ZINC OXIDE TOPICAL OINTMENT 113GM JAR. TP SCH ×2 (09:00→19:43)
[2017-11-21] MEDS: FAMOTIDINE 20 MG TABLET PO SCH (09:55)
[2017-11-21] MEDS: PRENATAL MULTIVITAMIN TABLET. PO SCH (09:56)
[2017-11-21] MEDS: ZINC SULFATE 220 MG CAPSULE. PO SCH (09:56)
[2017-11-21] MEDS: ASCORBIC ACID 500 MG TABLET PO SCH (09:57)
[2017-11-21] MEDS: predniSONE 20 MG TABLET PO SCH (09:57)
[2017-11-21] MEDS: NICOTINE 21MG PATCH. TD SCH (09:57)
[2017-11-21 11:30] VITALS: BP 134/67
[2017-11-21] MEDS: buPROPion XL 150 MG TAB.ER.24H PO SCH (14:28)
[2017-11-21 15:20] VITALS: BP 101/61
[2017-11-21] MEDS: MIRTAZAPINE 7.5 MG TABLET. PO SCH (19:41)
[2017-11-21] MEDS: ACETAMINOPHEN 325 MG TABLET PO PRN (19:41)
[2017-11-21] MEDS: ENOXAPARIN 40 MG/0.4 ML DISP.SYRIN. SQ SCH (19:41)
--- NOTE | 2017-11-21 20:45 | PN ---
DATE: 11/20/2017 PSYCHIATRIC PROGRESS NOTE This is a late entry for 11/20/2017, covers elements not covered in my initial note of 11/20/2017. SUBJECTIVE: I met with the patient in the evening of 11/20/2017. Overall, the patient is somewhat resistive to cares, refusing to answer questions, withdrawn, irritable with staff, "just leave me alone dammit." REVIEW OF SYSTEMS: Ambulation impaired, shortness of breath. No CV, , GI system symptoms on review. MENTAL STATUS EXAM: Oriented to herself. Insight, judgment, recent and remote memory, attention, concentration, fund of knowledge poor, consistent with her diagnosis. IMPRESSION: Major depressive disorder with psychotic features; major neurocognitive disorder, Alzheimer, vascular with delusion, depression. Rest unchanged. PLAN: Continue current psychotropics. Start Wellbutrin-XL 150 mg a day as an antidepressant. Adjust further as clinically indicated. DEMETRIUS JURADO MD DR: OMAR/denny JOB#: [id number] / [id number]
--- NOTE | 2017-11-21 21:01 | PDOC ---
Exam Note: Ryan Note: Please also refer to the separate dictated note~for this date of service dictated separately.~Patient seen individually. Discussed the patient with Nursing staff reviewed the chart.~Reviewed interim history and current functioning. Reviewed vital signs,~Labs/ Radiology~and current medications noted below. Continue current treatment with the changes noted in the dictated addendum note Assessment: Vital Signs: Vital Signs Date Time Temp Pulse Resp B/P (MAP) Pulse Ox O2 Delivery O2 Flow Rate FiO2 11/21/17 16:30 92 Nasal Cannula 3.0 11/21/17 15:20 98.0 92 18 101/61 (74) I&O Intake and Output 11/21/17 07:00 Intake Total 2009 ml Balance 2009 ml Intake Oral 2009 ml # Bowel Movements 1 Labs: Laboratory Tests Test 11/21/17 06:13 White Blood Count 10.3 x10^3/uL (4.0-11.0) Red Blood Count 3.86 x10^6/uL (3.50-5.40) Hemoglobin 11.5 g/dL (12.0-15.5) L Hematocrit 34.3 % (36.0-47.0) L Mean Corpuscular Volume 89 fL (79-100) Mean Corpuscular Hemoglobin 30 pg (25-35) Mean Corpuscular Hemoglobin Concent 34 g/dL (31-37) Red Cell Distribution Width 14.8 % (11.5-14.5) H Platelet Count 264 x10^3/uL (140-400) Neutrophils (%) (Auto) 61 % (31-73) Lymphocytes (%) (Auto) 28 % (24-48) Monocytes (%) (Auto) 10 % (0-9) H Eosinophils (%) (Auto) 1 % (0-3) Basophils (%) (Auto) 0 % (0-3) Neutrophils # (Auto) 6.2 x10^3uL (1.8-7.7) Lymphocytes # (Auto) 2.9 x10^3/uL (1.0-4.8) Monocytes # (Auto) 1.0 x10^3/uL (0.0-1.1) Eosinophils # (Auto) 0.1 x10^3/uL (0.0-0.7) Basophils # (Auto) 0.0 x10^3/uL (0.0-0.2) Sodium Level 135 mmol/L (136-145) L Potassium Level 4.0 mmol/L (3.5-5.1) Chloride Level 97 mmol/L (98-107) L Carbon Dioxide Level 39 mmol/L (21-32) H Anion Gap -1 (6-14) L Blood Urea Nitrogen 21 mg/dL (7-20) H Creatinine 0.3 mg/dL (0.6-1.0) L Estimated GFR (Cockcroft-Gault) 221.9 BUN/Creatinine Ratio 70 (6-20) H Glucose Level 96 mg/dL (70-99) Calcium Level 8.2 mg/dL (8.5-10.1) L Total Bilirubin 0.3 mg/dL (0.2-1.0) Aspartate Amino Transferase (AST) 54 U/L (15-37) H Alanine Aminotransferase (ALT) 178 U/L (14-59) H Alkaline Phosphatase 97 U/L (46-116) Total Protein 5.0 g/dL (6.4-8.2) L Albumin 2.2 g/dL (3.4-5.0) L Albumin/Globulin Ratio 0.8 (1.0-1.7) L Current Medications: Meds: Current Medications Acetaminophen (Tylenol) 650 mg PRN Q6HRS PRN PO PAIN / TEMP Last administered on 11/21/17at 19:41; Start 11/19/17 at 12:45 Multi-Ingredient Ointment (Analgesic [place]) 1 jerome PRN QID PRN TP MUSCLE PAIN; Start 11/19/17 at 12:45 Al Hydroxide/Mg Hydroxide (Mylanta Plus Xs) 15 ml PRN AFTMEALHC PRN PO DYSPEPSIA; Start 11/19/17 at 12:45 Magnesium Hydroxide (Milk Of Magnesia) 2,400 mg PRN QHS PRN PO CONSTIPATION; Start 11/19/17 at 12:45 Nicotine (Nicoderm Cq 21mg) 1 patch DAILY TD Last administered on 11/21/17at 09: 57; Start 11/19/17 at 13:30 Acetaminophen (Tylenol) 650 mg PRN Q6HRS PRN PO PAIN / TEMP; Start 11/19/17 at 13:00; Stop 11/19/17 at 13:11; Status DC Albuterol Sulfate (Ventolin) 2.5 mg PRN Q4HRS PRN NEB SHORTNESS OF BREATH; Start 11/19/17 at 13:00 Famotidine (Pepcid) 20 mg DAILY PO Last administered on 11/21/17at 09:55; Start 11/20/17 at 09:00 Guaifenesin (Mucinex Er) 600 mg BID PO Last administered on 11/21/17at 19:40; Start 11/19/17 at 21:00 Albuterol/ Ipratropium (Duoneb) 3 ml Q4HRS W/A NEB Last administered on at 16:30; Start 11/19/17 at 14:00 Calamine/Phenol (Calmoseptine) 1 jerome BID TP ; Start 11/19/17 at 21:00; Stop at 21:00; Status DC Prednisone (Prednisone) 10 mg DAILY PO ; Start 11/20/17 at 09:00; Stop 11/20/17 at 09:00; Status DC Prednisone (Prednisone) 30 mg DAILY PO ; Start 11/20/17 at 09:00; Stop 11/20/17 at 09:00; Status DC Prednisone (Prednisone) 20 mg Taper DAILY PO Last administered on 11/21/17at 09: 57; Start 11/20/17 at 09:00; Stop 11/28/17 at 08:59 Influenza Virus Vaccine Quadrival (Fluarix Quad [id number] Syringe) 0.5 ml ONCE ONCE VAX IM ; Start 11/19/17 at 13:30; Stop 11/19/17 at 17:52; Status DC Calamine/Phenol (Calmoseptine) 1 jerome BID TP ; Start 11/19/17 at 21:00 Enoxaparin Sodium (Lovenox) 40 mg Q24H SQ Last administered on 11/21/17at 19:41 ; Start 11/19/17 at 21:00 Influenza Virus Vaccine Quadrival (Fluarix Quad [id number] Syringe) 0.5 ml ONCE ONCE VAX IM Last administered on 11/20/17at 18:43; Start 11/20/17 at 08:00; Stop 11/20/17 at 08:01; Status DC Betamethasone/ Clotrimazole (Lotrisone) 1 jerome BID TP Last administered on at 19:42; Start 11/20/17 at 21:00 Prenat Multivit/ [place]/Iron/Folic Ac (Multivitamin ) 1 tab DAILY PO Last administered on 11/21/17at 09:56; Start 11/21/17 at 09:00 Ascorbic Acid (Vitamin C) 500 mg DAILY PO Last administered on 11/21/17at 09:57 ; Start 11/21/17 at 09:00 Zinc Sulfate (Orazinc) 220 mg DAILY PO Last administered on 11/21/17at 09:56; Start 11/21/17 at 09:00 Bupropion HCl (Wellbutrin Xl) 150 mg DAILY PO Last administered on 11/21/17at 14 :28; Start 11/21/17 at 13:15 Mirtazapine (Remeron) 7.5 mg QHS PO Last administered on 11/21/17at 19:41; Start 11/21/17 at 21:00 Active Scripts Active Reported Prednisone 10 Mg Tablet 10 Mg PO DAILY 4 Days To be Started after completion of 20mg Daily order is complete. Prednisone 20 Mg Tablet 20 Mg PO DAILY 4 Days To be started after Completion of 30mg Daily order is complete Prednisone 10 Mg Tablet 30 Mg PO DAILY 4 Days Calmoseptine Ointment (Menthol/Zinc Oxide) 71 Gm Oint...g. 1 [place] TP BID Duoneb 0.5-3(2.5) Mg/3 Ml (Albuterol/Ipratropium) 3 Ml Ampul.neb 3 Ml NEB Q4HRS W/A Mucinex (Guaifenesin) 600 Mg Tablet.er 600 Mg PO BID Pepcid (Famotidine) 20 Mg Tablet 20 Mg PO DAILY Albuterol Sulfate Neb Soln (Albuterol Sulfate) 2.5 Mg/3 Ml Vial.neb 2.5 Mg NEB PRN Q4HRS PRN Tylenol (Acetaminophen) 325 Mg Tablet 650 Mg PO PRN Q6HRS PRN I have reviewed the current psychotropics carefully including drug interactions. Risk benefit ratio favors no change other than as noted in my dictated progress note. Diagnosis: Problems: (1) Anxiety disorder (2) Major depressive disorder, recurrent episode (3) Dementia, vascular, with depression (4) Dementia, vascular, with delusions (5) Dementia in Alzheimer's disease with depression (6) Dementia in Alzheimer's disease with delusions (7) Dementia associated with alcoholism with behavioral disturbance DEMETRIUS JURADO MD Nov 21, 2017 21:01
[2017-11-22 06:08] VITALS: BP 125/68
[2017-11-22] MEDS: IPRATRPIUM/ALBUTEROL 0.5/2.5MG 3 ML NEBU. NEB SCH ×5 (06:08→22:35)
[2017-11-22] MEDS: NICOTINE 21MG PATCH. TD SCH ×2 (09:00→11:02)
[2017-11-22] MEDS: MENTHOL/ZINC OXIDE TOPICAL OINTMENT 113GM JAR. TP SCH ×2 (09:00→19:28)
[2017-11-22] MEDS: buPROPion XL 150 MG TAB.ER.24H PO SCH (11:01)
[2017-11-22] MEDS: PRENATAL MULTIVITAMIN TABLET. PO SCH (11:01)
[2017-11-22] MEDS: ASCORBIC ACID 500 MG TABLET PO SCH (11:01)
[2017-11-22] MEDS: FAMOTIDINE 20 MG TABLET PO SCH (11:01)
[2017-11-22] MEDS: predniSONE 20 MG TABLET PO SCH (11:01)
[2017-11-22] MEDS: ZINC SULFATE 220 MG CAPSULE. PO SCH (11:02)
[2017-11-22] MEDS: CLOTRIMAZOLE/BETAMETH 1%-0.05% TOPICAL CREAM 15GM TUBE. TP SCH ×2 (11:06→19:28)
[2017-11-22 15:11] LABS: BASO # 0.1 x10^3/uL (0.0-0.2); BASO % 0 % (0-3); EOS % 0 % (0-3); HEMATOCRIT 36.6 % (36.0-47.0); HEMOGLOBIN 12.1 g/dL (12.0-15.5); LYMPH # 0.7 x10^3/uL (1.0-4.8); LYMPH % 6 % (24-48); MEAN CORPUSCULAR HEMOGLOBIN 29 pg (25-35); MEAN CORPUSCULAR HGB CONC 33 g/dL (31-37); MEAN CORPUSCULAR VOLUME 88 fL (79-100); MONO # 0.6 x10^3/uL (0.0-1.1); MONO % 5 % (0-9); NEUT # 11.6 x10^3uL (1.8-7.7); NEUT % 89 % (31-73); PLATELET COUNT 297 x10^3/uL (140-400); RED BLOOD COUNT 4.15 x10^6/uL (3.50-5.40); RED CELL DISTRIBUTION WIDTH 14.8 % (11.5-14.5); WHITE BLOOD COUNT 13.1 x10^3/uL (4.0-11.0)
[2017-11-22 15:31] LABS: ALBUMIN 2.4 g/dL (3.4-5.0); ALBUMIN/GLOBULIN RATIO 0.8 (1.0-1.7); CALCIUM 8.7 mg/dL (8.5-10.1); CREATININE 0.4 mg/dL (0.6-1.0); GFR 159.2; POTASSIUM 4.8 mmol/L (3.5-5.1); TOTAL BILIRUBIN 0.3 mg/dL (0.2-1.0); TOTAL PROTEIN 5.6 g/dL (6.4-8.2)
[2017-11-22 15:54] VITALS: BP 101/61
--- NOTE | 2017-11-22 18:03 | PN ---
DATE: 11/21/2017 PSYCHIATRIC PROGRESS NOTE This is a late entry for 11/21/2017, covers elements not covered in my initial note of 11/21/2017. SUBJECTIVE: I met with the patient in the evening of 11/21/2017. The patient slept just 4 hours previous evening, somewhat withdrawn, depressed and angry per nursing report, irritable with staff asking them to get away from her as they administer her medications. Her daughter visited her and the patient just laid with her head down. REVIEW OF SYSTEMS: Ambulation impaired, in wheelchair. No CV, , pulmonary, eye system symptoms on review. MENTAL STATUS EXAM: Oriented to herself and situation. Speech moderate latency, often responses monosyllabic. Abstraction fair, computation impaired, language function intact, attention span short. Mood and affect still depressed. LABORATORY DATA: Reviewed. IMPRESSION: Major depressive disorder with psychotic features in partial remission; cognitive disorder, unspecified. PLAN: Start Remeron 7.5 mg p.o. at bedtime to augment the Wellbutrin to help with the insomnia. Continue Wellbutrin-XL 150 mg a day. We will increase this gradually. DEMETRIUS JURADO MD DR: OMAR/denny JOB#: [id number] / [id number]
[2017-11-22] MEDS: MIRTAZAPINE 7.5 MG TABLET. PO SCH (19:25)
[2017-11-22] MEDS: ENOXAPARIN 40 MG/0.4 ML DISP.SYRIN. SQ SCH (19:27)
--- NOTE | 2017-11-22 20:49 | PDOC ---
Exam Note: Ryan Note: Please also refer to the separate dictated note~for this date of service dictated separately.~Patient seen individually. Discussed the patient with Nursing staff reviewed the chart.~Reviewed interim history and current functioning. Reviewed vital signs,~Labs/ Radiology~and current medications noted below. Continue current treatment with the changes noted in the dictated addendum note Assessment: Vital Signs: Vital Signs Date Time Temp Pulse Resp B/P (MAP) Pulse Ox O2 Delivery O2 Flow Rate FiO2 11/22/17 16:25 94 Nasal Cannula 3.0 11/22/17 15:54 98.4 100 20 101/61 (74) I&O Intake and Output 11/22/17 07:00 Intake Total 1200 ml Balance 1200 ml Intake Oral 1200 ml # Voids 2 Labs: Laboratory Tests Test 11/22/17 14:55 White Blood Count 13.1 x10^3/uL (4.0-11.0) H Red Blood Count 4.15 x10^6/uL (3.50-5.40) Hemoglobin 12.1 g/dL (12.0-15.5) Hematocrit 36.6 % (36.0-47.0) Mean Corpuscular Volume 88 fL (79-100) Mean Corpuscular Hemoglobin 29 pg (25-35) Mean Corpuscular Hemoglobin Concent 33 g/dL (31-37) Red Cell Distribution Width 14.8 % (11.5-14.5) H Platelet Count 297 x10^3/uL (140-400) Neutrophils (%) (Auto) 89 % (31-73) H Lymphocytes (%) (Auto) 6 % (24-48) L Monocytes (%) (Auto) 5 % (0-9) Eosinophils (%) (Auto) 0 % (0-3) Basophils (%) (Auto) 0 % (0-3) Neutrophils # (Auto) 11.6 x10^3uL (1.8-7.7) H Lymphocytes # (Auto) 0.7 x10^3/uL (1.0-4.8) L Monocytes # (Auto) 0.6 x10^3/uL (0.0-1.1) Eosinophils # (Auto) 0.0 x10^3/uL (0.0-0.7) Basophils # (Auto) 0.1 x10^3/uL (0.0-0.2) Sodium Level 135 mmol/L (136-145) L Potassium Level 4.8 mmol/L (3.5-5.1) Chloride Level 96 mmol/L (98-107) L Carbon Dioxide Level 37 mmol/L (21-32) H Anion Gap 2 (6-14) L Blood Urea Nitrogen 20 mg/dL (7-20) Creatinine 0.4 mg/dL (0.6-1.0) L Estimated GFR (Cockcroft-Gault) 159.2 BUN/Creatinine Ratio 50 (6-20) H Glucose Level 133 mg/dL (70-99) H Calcium Level 8.7 mg/dL (8.5-10.1) Total Bilirubin 0.3 mg/dL (0.2-1.0) Aspartate Amino Transferase (AST) 37 U/L (15-37) Alanine Aminotransferase (ALT) 147 U/L (14-59) H Alkaline Phosphatase 112 U/L (46-116) Total Protein 5.6 g/dL (6.4-8.2) L Albumin 2.4 g/dL (3.4-5.0) L Albumin/Globulin Ratio 0.8 (1.0-1.7) L Current Medications: Meds: Current Medications Acetaminophen (Tylenol) 650 mg PRN Q6HRS PRN PO PAIN / TEMP Last administered on 11/21/17at 19:41; Start 11/19/17 at 12:45 Multi-Ingredient Ointment (Analgesic [place]) 1 jerome PRN QID PRN TP MUSCLE PAIN; Start 11/19/17 at 12:45 Al Hydroxide/Mg Hydroxide (Mylanta Plus Xs) 15 ml PRN AFTMEALHC PRN PO DYSPEPSIA; Start 11/19/17 at 12:45 Magnesium Hydroxide (Milk Of Magnesia) 2,400 mg PRN QHS PRN PO CONSTIPATION; Start 11/19/17 at 12:45 Nicotine (Nicoderm Cq 21mg) 1 patch DAILY TD Last administered on 11/21/17at 09: 57; Start 11/19/17 at 13:30 Acetaminophen (Tylenol) 650 mg PRN Q6HRS PRN PO PAIN / TEMP; Start 11/19/17 at 13:00; Stop 11/19/17 at 13:11; Status DC Albuterol Sulfate (Ventolin) 2.5 mg PRN Q4HRS PRN NEB SHORTNESS OF BREATH; Start 11/19/17 at 13:00 Famotidine (Pepcid) 20 mg DAILY PO Last administered on 11/22/17at 11:01; Start 11/20/17 at 09:00 Guaifenesin (Mucinex Er) 600 mg BID PO Last administered on 11/22/17at 19:25; Start 11/19/17 at 21:00 Albuterol/ Ipratropium (Duoneb) 3 ml Q4HRS W/A NEB Last administered on at 16:23; Start 11/19/17 at 14:00 Calamine/Phenol (Calmoseptine) 1 jerome BID TP ; Start 11/19/17 at 21:00; Stop at 21:00; Status DC Prednisone (Prednisone) 10 mg DAILY PO ; Start 11/20/17 at 09:00; Stop 11/20/17 at 09:00; Status DC Prednisone (Prednisone) 30 mg DAILY PO ; Start 11/20/17 at 09:00; Stop 11/20/17 at 09:00; Status DC Prednisone (Prednisone) 20 mg Taper DAILY PO Last administered on 11/22/17at 11: 01; Start 11/20/17 at 09:00; Stop 11/28/17 at 08:59 Influenza Virus Vaccine Quadrival (Fluarix Quad [id number] Syringe) 0.5 ml ONCE ONCE VAX IM ; Start 11/19/17 at 13:30; Stop 11/19/17 at 17:52; Status DC Calamine/Phenol (Calmoseptine) 1 jerome BID TP ; Start 11/19/17 at 21:00 Enoxaparin Sodium (Lovenox) 40 mg Q24H SQ Last administered on 11/22/17at 19:27 ; Start 11/19/17 at 21:00 Influenza Virus Vaccine Quadrival (Fluarix Quad Syringe) 0.5 ml ONCE ONCE VAX IM Last administered on 11/20/17at 18:43; Start 11/20/17 at 08:00; Stop 11/20/17 at 08:01; Status DC Betamethasone/ Clotrimazole (Lotrisone) 1 jerome BID TP Last administered on at 19:28; Start 11/20/17 at 21:00 Prenat Multivit/ [place]/Iron/Folic Ac (Multivitamin ) 1 tab DAILY PO Last administered on 11/22/17at 11:01; Start 11/21/17 at 09:00 Ascorbic Acid (Vitamin C) 500 mg DAILY PO Last administered on 11/22/17at 11:01 ; Start 11/21/17 at 09:00 Zinc Sulfate (Orazinc) 220 mg DAILY PO Last administered on 11/22/17at 11:02; Start 11/21/17 at 09:00 Bupropion HCl (Wellbutrin Xl) 150 mg DAILY PO Last administered on 11/22/17at 11 :01; Start 11/21/17 at 13:15; Stop 11/22/17 at 18:19; Status DC Mirtazapine (Remeron) 7.5 mg QHS PO Last administered on 11/22/17at 19:25; Start 11/21/17 at 21:00 Bupropion HCl (Wellbutrin Xl) 300 mg DAILY PO ; Start 11/23/17 at 09:00 Active Scripts Active Reported Prednisone 10 Mg Tablet 10 Mg PO DAILY 4 Days To be Started after completion of 20mg Daily order is complete. Prednisone 20 Mg Tablet 20 Mg PO DAILY 4 Days To be started after Completion of 30mg Daily order is complete Prednisone 10 Mg Tablet 30 Mg PO DAILY 4 Days Calmoseptine Ointment (Menthol/Zinc Oxide) 71 Gm Oint...g. 1 [place] TP BID Duoneb 0.5-3(2.5) Mg/3 Ml (Albuterol/Ipratropium) 3 Ml Ampul.neb 3 Ml NEB Q4HRS W/A Mucinex (Guaifenesin) 600 Mg Tablet.er 600 Mg PO BID Pepcid (Famotidine) 20 Mg Tablet 20 Mg PO DAILY Albuterol Sulfate Neb Soln (Albuterol Sulfate) 2.5 Mg/3 Ml Vial.neb 2.5 Mg NEB PRN Q4HRS PRN Tylenol (Acetaminophen) 325 Mg Tablet 650 Mg PO PRN Q6HRS PRN I have reviewed the current psychotropics carefully including drug interactions. Risk benefit ratio favors no change other than as noted in my dictated progress note. Diagnosis: Problems: (1) Anxiety disorder (2) Major depressive disorder, recurrent episode (3) Dementia, vascular, with depression (4) Dementia, vascular, with delusions (5) Dementia in Alzheimer's disease with depression (6) Dementia in Alzheimer's disease with delusions (7) Dementia associated with alcoholism with behavioral disturbance DEMETRISU JURADO MD Nov 22, 2017 20:49
[2017-11-23 05:53] VITALS: BP 116/60
[2017-11-23] MEDS: IPRATRPIUM/ALBUTEROL 0.5/2.5MG 3 ML NEBU. NEB SCH ×4 (06:04→21:28)
[2017-11-23] MEDS: ZINC SULFATE 220 MG CAPSULE. PO SCH (08:16)
[2017-11-23] MEDS: ASCORBIC ACID 500 MG TABLET PO SCH (08:16)
[2017-11-23] MEDS: PRENATAL MULTIVITAMIN TABLET. PO SCH (08:17)
[2017-11-23] MEDS: FAMOTIDINE 20 MG TABLET PO SCH (08:17)
[2017-11-23] MEDS: NICOTINE 21MG PATCH. TD SCH (08:17)
[2017-11-23] MEDS: predniSONE 20 MG TABLET PO SCH (08:17)
[2017-11-23] MEDS: buPROPion XL 300 MG TAB.ER.24H. PO SCH (08:18)
--- NOTE | 2017-11-23 08:20 | RAD ---
Single view of the Chest 11/23/2017 8:57 AM Indication: leukocytosis Comparison: Chest radiograph, 11/19/2017 Findings: The patient is significantly rotated. No evidence of pneumothorax. There is interval worsening of right basilar infiltrate interim. Small left pleural effusion noted. Diffuse interstitial coarsening is similar. No acute osseous changes are seen. Heart size appears stable. Impression: 1. Interval worsening right basilar infiltrate. Recommend imaging follow-up to ensure complete resolution and exclude underlying lesion 2. Small left pleural effusion 3. Diffuse interstitial thickening
[2017-11-23] MEDS: MENTHOL/ZINC OXIDE TOPICAL OINTMENT 113GM JAR. TP SCH ×2 (09:00→19:41)
[2017-11-23] MEDS: CLOTRIMAZOLE/BETAMETH 1%-0.05% TOPICAL CREAM 15GM TUBE. TP SCH ×2 (11:27→19:41)
[2017-11-23 15:58] VITALS: BP 106/61
--- NOTE | 2017-11-23 16:10 | PDOC ---
PROGRESS NOTES Assessment 1. Presumptive pneumonia: Pt is actually on less O2, but WBC up slightly and CXR suggestive of evolving infiltrate. May need CT as could represent obstructive infiltrate. Lactate normal. Pt to be treated w/ Rocephin IM daily. Check CBC in AM. BC's ordered. Continue O2. Continue nebs. Problems: Plan of Care: see other orders Subjective Pt seen on rounds today. CXR and WBC suggestive of evolving pneumonia, even though pt states she feels fine and staff states she has not had a cough. Pt was on 5 liters O2 when she was admitted, down to 2.5 now, so clinically she has been improving. Pt denies fever, chills, diarrhea, cough, sputum production. Objective Vital Signs Date Time Temp Pulse Resp B/P (MAP) Pulse Ox O2 Delivery O2 Flow Rate FiO2 11/23/17 15:58 97.7 106 18 106/61 (76) 94 3.0 11/23/17 11:22 Nasal Cannula Intake and Output 11/23/17 07:00 Intake Total 1260 ml Balance 1260 ml Intake Oral 1260 ml # Voids 1 # Bowel Movements 1 Abdomen: Soft, No tenderness Heart: Regular rate, Normal S1, Normal S2, No murmurs Extremities: No tenderness/swelling General: Alert, Cooperative, No acute distress HEENT: Mucous membr. moist/pink Lungs: Other (ECHO rhonchi, diminished breath sounds in bases, no resp distress) Neck: No JVD Neuro: Normal tone Skin: No rashes Review of Relevant I have reviewed the following items mao (where applicable) has been applied. Labs Laboratory Tests Test 11/22/17 14:55 11/23/17 12:19 White Blood Count 13.1 x10^3/uL (4.0-11.0) Red Blood Count 4.15 x10^6/uL (3.50-5.40) Hemoglobin 12.1 g/dL (12.0-15.5) Hematocrit 36.6 % (36.0-47.0) Mean Corpuscular Volume 88 fL (79-100) Mean Corpuscular Hemoglobin 29 pg (25-35) Mean Corpuscular Hemoglobin Concent 33 g/dL (31-37) Red Cell Distribution Width 14.8 % (11.5-14.5) Platelet Count 297 x10^3/uL (140-400) Neutrophils (%) (Auto) 89 % (31-73) Lymphocytes (%) (Auto) 6 % (24-48) Monocytes (%) (Auto) 5 % (0-9) Eosinophils (%) (Auto) 0 % (0-3) Basophils (%) (Auto) 0 % (0-3) Neutrophils # (Auto) 11.6 x10^3uL (1.8-7.7) Lymphocytes # (Auto) 0.7 x10^3/uL (1.0-4.8) Monocytes # (Auto) 0.6 x10^3/uL (0.0-1.1) Eosinophils # (Auto) 0.0 x10^3/uL (0.0-0.7) Basophils # (Auto) 0.1 x10^3/uL (0.0-0.2) Sodium Level 135 mmol/L (136-145) Potassium Level 4.8 mmol/L (3.5-5.1) Chloride Level 96 mmol/L (98-107) Carbon Dioxide Level 37 mmol/L (21-32) Anion Gap 2 (6-14) Blood Urea Nitrogen 20 mg/dL (7-20) Creatinine 0.4 mg/dL (0.6-1.0) Estimated GFR (Cockcroft-Gault) 159.2 BUN/Creatinine Ratio 50 (6-20) Glucose Level 133 mg/dL (70-99) Calcium Level 8.7 mg/dL (8.5-10.1) Total Bilirubin 0.3 mg/dL (0.2-1.0) Aspartate Amino Transf (AST/SGOT) 37 U/L (15-37) Alanine Aminotransferase (ALT/SGPT) 147 U/L (14-59) Alkaline Phosphatase 112 U/L (46-116) Total Protein 5.6 g/dL (6.4-8.2) Albumin 2.4 g/dL (3.4-5.0) Albumin/Globulin Ratio 0.8 (1.0-1.7) Lactic Acid Level 1.2 mmol/L (0.4-2.0) Medications Current Medications Acetaminophen (Tylenol) 650 mg PRN Q6HRS PRN PO PAIN / TEMP Last administered on 11/21/17at 19:41; Start 11/19/17 at 12:45 Multi-Ingredient Ointment (Analgesic [place]) 1 jerome PRN QID PRN TP MUSCLE PAIN; Start 11/19/17 at 12:45 Al Hydroxide/Mg Hydroxide (Mylanta Plus Xs) 15 ml PRN AFTMEALHC PRN PO DYSPEPSIA; Start 11/19/17 at 12:45 Magnesium Hydroxide (Milk Of Magnesia) 2,400 mg PRN QHS PRN PO CONSTIPATION; Start 11/19/17 at 12:45 Nicotine (Nicoderm Cq 21mg) 1 patch DAILY TD Last administered on 11/23/17at 08: 17; Start 11/19/17 at 13:30 Acetaminophen (Tylenol) 650 mg PRN Q6HRS PRN PO PAIN / TEMP; Start 11/19/17 at 13:00; Stop 11/19/17 at 13:11; Status DC Albuterol Sulfate (Ventolin) 2.5 mg PRN Q4HRS PRN NEB SHORTNESS OF BREATH; Start 11/19/17 at 13:00 Famotidine (Pepcid) 20 mg DAILY PO Last administered on 11/23/17at 08:17; Start 11/20/17 at 09:00 Guaifenesin (Mucinex Er) 600 mg BID PO Last administered on 11/23/17at 08:17; Start 11/19/17 at 21:00 Albuterol/ Ipratropium (Duoneb) 3 ml Q4HRS W/A NEB Last administered on at 11:22; Start 11/19/17 at 14:00 Calamine/Phenol (Calmoseptine) 1 jerome BID TP ; Start 11/19/17 at 21:00; Stop at 21:00; Status DC Prednisone (Prednisone) 10 mg DAILY PO ; Start 11/20/17 at 09:00; Stop 11/20/17 at 09:00; Status DC Prednisone (Prednisone) 30 mg DAILY PO ; Start 11/20/17 at 09:00; Stop 11/20/17 at 09:00; Status DC Prednisone (Prednisone) 20 mg Taper DAILY PO Last administered on 11/23/17at 08: 17; Start 11/20/17 at 09:00; Stop 11/28/17 at 08:59 Influenza Virus Vaccine Quadrival (Fluarix Quad [id number] Syringe) 0.5 ml ONCE ONCE VAX IM ; Start 11/19/17 at 13:30; Stop 11/19/17 at 17:52; Status DC Calamine/Phenol (Calmoseptine) 1 jerome BID TP ; Start 11/19/17 at 21:00 Enoxaparin Sodium (Lovenox) 40 mg Q24H SQ Last administered on 11/22/17at 19:27 ; Start 11/19/17 at 21:00 Influenza Virus Vaccine Quadrival (Fluarix Quad Syringe) 0.5 ml ONCE ONCE VAX IM Last administered on 11/20/17at 18:43; Start 11/20/17 at 08:00; Stop 11/20/17 at 08:01; Status DC Betamethasone/ Clotrimazole (Lotrisone) 1 jerome BID TP Last administered on at 11:27; Start 11/20/17 at 21:00 Prenat Multivit/ [place]/Iron/Folic Ac (Multivitamin ) 1 tab DAILY PO Last administered on 11/23/17at 08:17; Start 11/21/17 at 09:00 Ascorbic Acid (Vitamin C) 500 mg DAILY PO Last administered on 11/23/17at 08:16 ; Start 11/21/17 at 09:00 Zinc Sulfate (Orazinc) 220 mg DAILY PO Last administered on 11/23/17at 08:16; Start 11/21/17 at 09:00 Bupropion HCl (Wellbutrin Xl) 150 mg DAILY PO Last administered on 11/22/17at 11 :01; Start 11/21/17 at 13:15; Stop 11/22/17 at 18:19; Status DC Mirtazapine (Remeron) 7.5 mg QHS PO Last administered on 11/22/17at 19:25; Start 11/21/17 at 21:00 Bupropion HCl (Wellbutrin Xl) 300 mg DAILY PO Last administered on 11/23/17at 08 :18; Start 11/23/17 at 09:00 Vitamin A/Vitamin D (Vitamin A & D Ointment) 1 jerome PRN Q1HR PRN TP SKIN PROTECTION; Start 11/23/17 at 11:30 Ceftriaxone Sodium (Rocephin Im) 1 gm DAILY IM ; Start 11/24/17 at 09:00; Stop 11/26/17 at 23:59 Active Scripts Active Reported Prednisone 10 Mg Tablet 10 Mg PO DAILY 4 Days To be Started after completion of 20mg Daily order is complete. Prednisone 20 Mg Tablet 20 Mg PO DAILY 4 Days To be started after Completion of 30mg Daily order is complete Prednisone 10 Mg Tablet 30 Mg PO DAILY 4 Days Calmoseptine Ointment (Menthol/Zinc Oxide) 71 Gm Oint...g. 1 Jerome TP BID Duoneb 0.5-3(2.5) Mg/3 Ml (Albuterol/Ipratropium) 3 Ml Ampul.neb 3 Ml NEB Q4HRS W/A Mucinex (Guaifenesin) 600 Mg Tablet.er 600 Mg PO BID Pepcid (Famotidine) 20 Mg Tablet 20 Mg PO DAILY Albuterol Sulfate Neb Soln (Albuterol Sulfate) 2.5 Mg/3 Ml Vial.neb 2.5 Mg NEB PRN Q4HRS PRN Tylenol (Acetaminophen) 325 Mg Tablet 650 Mg PO PRN Q6HRS PRN Vitals/I & O Vital Sign - Last 24 Hours 11/22/17 11/22/17 11/23/17 11/23/17 16:25 22:13 05:05 05:53 Temp 97.9 Pulse 90 Resp 20 B/P (MAP) 116/60 (78) Pulse Ox 94 92 93 93 O2 Delivery Nasal Cannula Nasal Cannula Nasal Cannula O2 Flow Rate 3.0 3.0 3.0 11/23/17 11/23/17 11:22 15:58 Temp 97.7 Pulse 106 Resp 18 B/P (MAP) 106/61 (76) Pulse Ox 95 94 O2 Delivery Nasal Cannula O2 Flow Rate 3.0 3.0 Intake and Output 11/22/17 11/22/17 11/23/17 15:00 23:00 07:00 Intake Total 900 ml 240 ml 120 ml Balance 900 ml 240 ml 120 ml Images Single view of the Chest 11/23/2017 8:57 AM Indication: leukocytosis Comparison: Chest radiograph, 11/19/2017 Findings: The patient is significantly rotated. No evidence of pneumothorax. There is interval worsening of right basilar infiltrate interim. Small left pleural effusion noted. Diffuse interstitial coarsening is similar. No acute osseous changes are seen. Heart size appears stable. Impression: 1. Interval worsening right basilar infiltrate. Recommend imaging follow-up to ensure complete resolution and exclude underlying lesion 2. Small left pleural effusion 3. Diffuse interstitial thickening GUERDA CURIEL MD Nov 23, 2017 16:10
[2017-11-23 17:14] LABS: BILIRUBIN,URINE NEG (NEG); CLARITY,URINE CLEAR; COLOR,URINE YELLOW; GLUCOSE,URINE NEG (NEG); NITRITE,URINE NEG (NEG); UROBILINOGEN,URINE 0.2 mg/dL (0.2 mg/dL)
[2017-11-23 17:15] LABS: BACTERIA,URINE 0 /HPF (0-FEW); RBC,URINE OCC /HPF (0-2); SQUAMOUS EPITHELIAL CELL,UR MOD /LPF
--- NOTE | 2017-11-23 19:37 | PN ---
DATE: 11/22/2017 This is a late entry for 11/22/2017 and covers the elements not covered in my initial note of 11/22/2017. SUBJECTIVE: I met with the patient in the evening of 11/22/2017. Per nursing report, the patient has been angry, withdrawn, irritable, labile at times, using the words "dammit" towards staff. She slept 7-1/4 hours, compliant with bedtime medications, agitated, irritable at nursing staff and with the wound care nurse. She did walk 30 feet with therapy staff. REVIEW OF SYSTEMS: Ambulation impaired. No CV, , pulmonary, eye system symptoms on review. Reliability poor. MENTAL STATUS EXAM: Oriented to herself and situation. Speech moderate latency, often responses monosyllabic. Abstraction fair, computation impaired, language function intact, attention span short. Mood and affect still depressed. LABORATORY DATA: Reviewed. IMPRESSION: Major depressive disorder with psychotic features; cognitive disorder, unspecified. PLAN: Increase Wellbutrin-XL to 300 mg a day. Rest unchanged from initial note. MAN Mohsen JURADO MD DR: OMAR/denny JOB#: [id number] / [id number]
[2017-11-23] MEDS: MIRTAZAPINE 7.5 MG TABLET. PO SCH (19:40)
[2017-11-23] MEDS: ENOXAPARIN 40 MG/0.4 ML DISP.SYRIN. SQ SCH (19:40)
--- NOTE | 2017-11-23 20:58 | PDOC ---
Exam Note: Ryan Note: Please also refer to the separate dictated note~for this date of service dictated separately.~Patient seen individually. Discussed the patient with Nursing staff reviewed the chart.~Reviewed interim history and current functioning. Reviewed vital signs,~Labs/ Radiology~and current medications noted below. Continue current treatment with the changes noted in the dictated addendum note Assessment: Vital Signs: Vital Signs Date Time Temp Pulse Resp B/P (MAP) Pulse Ox O2 Delivery O2 Flow Rate FiO2 11/23/17 16:21 96 Nasal Cannula 3.0 11/23/17 15:58 97.7 106 18 106/61 (76) I&O Intake and Output 11/23/17 07:00 Intake Total 1260 ml Balance 1260 ml Intake Oral 1260 ml # Voids 1 # Bowel Movements 1 Labs: Laboratory Tests Test 11/23/17 12:19 11/23/17 16:00 Lactic Acid Level 1.2 mmol/L (0.4-2.0) Urine Collection Type Unknown Urine Color Yellow Urine Clarity Clear Urine pH 8.5 Urine Specific [place] 1.015 Urine Protein Neg (NEG-TRACE) Urine Glucose (UA) Neg mg/dL (NEG) Urine Ketones (Stick) Neg mg/dL (NEG) Urine Blood Neg (NEG) Urine Nitrite Neg (NEG) Urine Bilirubin Neg (NEG) Urine Urobilinogen Dipstick 0.2 mg/dL (0.2 mg/dL) Urine Leukocyte Esterase Neg (NEG) Urine RBC Occ /HPF (0-2) Urine WBC 1-4 /HPF (0-4) Urine Squamous Epithelial Cells Mod /LPF Urine Bacteria 0 /HPF (0-FEW) Current Medications: Meds: Current Medications Acetaminophen (Tylenol) 650 mg PRN Q6HRS PRN PO PAIN / TEMP Last administered on 11/21/17at 19:41; Start 11/19/17 at 12:45 Multi-Ingredient Ointment (Analgesic [place]) 1 jerome PRN QID PRN TP MUSCLE PAIN; Start 11/19/17 at 12:45 Al Hydroxide/Mg Hydroxide (Mylanta Plus Xs) 15 ml PRN AFTMEALHC PRN PO DYSPEPSIA; Start 11/19/17 at 12:45 Magnesium Hydroxide (Milk Of Magnesia) 2,400 mg PRN QHS PRN PO CONSTIPATION; Start 11/19/17 at 12:45 Nicotine (Nicoderm Cq 21mg) 1 patch DAILY TD Last administered on 11/23/17 08: 17; Start 11/19/17 at 13:30 Acetaminophen (Tylenol) 650 mg PRN Q6HRS PRN PO PAIN / TEMP; Start 11/19/17 at 13:00; Stop 11/19/17 at 13:11; Status DC Albuterol Sulfate (Ventolin) 2.5 mg PRN Q4HRS PRN NEB SHORTNESS OF BREATH; Start 11/19/17 at 13:00 Famotidine (Pepcid) 20 mg DAILY PO Last administered on 11/23/17at 08:17; Start 11/20/17 at 09:00 Guaifenesin (Mucinex Er) 600 mg BID PO Last administered on 11/23/17at 19:40; Start 11/19/17 at 21:00 Albuterol/ Ipratropium (Duoneb) 3 ml Q4HRS W/A NEB Last administered on at 16:20; Start 11/19/17 at 14:00 Calamine/Phenol (Calmoseptine) 1 jerome BID TP ; Start 11/19/17 at 21:00; Stop at 21:00; Status DC Prednisone (Prednisone) 10 mg DAILY PO ; Start 11/20/17 at 09:00; Stop 11/20/17 at 09:00; Status DC Prednisone (Prednisone) 30 mg DAILY PO ; Start 11/20/17 at 09:00; Stop 11/20/17 at 09:00; Status DC Prednisone (Prednisone) 20 mg Taper DAILY PO Last administered on 11/23/17at 08: 17; Start 11/20/17 at 09:00; Stop 11/28/17 at 08:59 Influenza Virus Vaccine Quadrival (Fluarix Quad [id number] Syringe) 0.5 ml ONCE ONCE VAX IM ; Start 11/19/17 at 13:30; Stop 11/19/17 at 17:52; Status DC Calamine/Phenol (Calmoseptine) 1 jerome BID TP ; Start 11/19/17 at 21:00 Enoxaparin Sodium (Lovenox) 40 mg Q24H SQ Last administered on 11/23/17at 19:40 ; Start 11/19/17 at 21:00 Influenza Virus Vaccine Quadrival (Fluarix Quad [id number] Syringe) 0.5 ml ONCE ONCE VAX IM Last administered on 11/20/17at 18:43; Start 11/20/17 at 08:00; Stop 11/20/17 at 08:01; Status DC Betamethasone/ Clotrimazole (Lotrisone) 1 jerome BID TP Last administered on at 19:41; Start 11/20/17 at 21:00 Prenat Multivit/ Chief Wheel[employer] Clerk/Iron/Folic Ac (Multivitamin ) 1 tab DAILY PO Last administered on 11/23/17at 08:17; Start 11/21/17 at 09:00 Ascorbic Acid (Vitamin C) 500 mg DAILY PO Last administered on 11/23/17at 08:16 ; Start 11/21/17 at 09:00 Zinc Sulfate (Orazinc) 220 mg DAILY PO Last administered on 11/23/17at 08:16; Start 11/21/17 at 09:00 Bupropion HCl (Wellbutrin Xl) 150 mg DAILY PO Last administered on 11/22/17at 11 :01; Start 11/21/17 at 13:15; Stop 11/22/17 at 18:19; Status DC Mirtazapine (Remeron) 7.5 mg QHS PO Last administered on 11/23/17at 19:40; Start 11/21/17 at 21:00 Bupropion HCl (Wellbutrin Xl) 300 mg DAILY PO Last administered on 11/23/17at 08 :18; Start 11/23/17 at 09:00 Vitamin A/Vitamin D (Vitamin A & D Ointment) 1 jerome PRN Q1HR PRN TP SKIN PROTECTION; Start 11/23/17 at 11:30 Ceftriaxone Sodium (Rocephin Im) 1 gm DAILY IM ; Start 11/24/17 at 09:00; Stop 11/26/17 at 23:59 Active Scripts Active Reported Prednisone 10 Mg Tablet 10 Mg PO DAILY 4 Days To be Started after completion of 20mg Daily order is complete. Prednisone 20 Mg Tablet 20 Mg PO DAILY 4 Days To be started after Completion of 30mg Daily order is complete Prednisone 10 Mg Tablet 30 Mg PO DAILY 4 Days Calmoseptine Ointment (Menthol/Zinc Oxide) 71 Gm Oint...g. 1 Jerome TP BID Duoneb 0.5-3(2.5) Mg/3 Ml (Albuterol/Ipratropium) 3 Ml Ampul.neb 3 Ml NEB Q4HRS W/A Mucinex (Guaifenesin) 600 Mg Tablet.er 600 Mg PO BID Pepcid (Famotidine) 20 Mg Tablet 20 Mg PO DAILY Albuterol Sulfate Neb Soln (Albuterol Sulfate) 2.5 Mg/3 Ml Vial.neb 2.5 Mg NEB PRN Q4HRS PRN Tylenol (Acetaminophen) 325 Mg Tablet 650 Mg PO PRN Q6HRS PRN I have reviewed the current psychotropics carefully including drug interactions. Risk benefit ratio favors no change other than as noted in my dictated progress note. 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
[2017-11-24 05:56] VITALS: BP 121/63
[2017-11-24] MEDS: IPRATRPIUM/ALBUTEROL 0.5/2.5MG 3 ML NEBU. NEB SCH ×5 (05:56→21:26)
[2017-11-24 08:10] LABS: ALBUMIN 2.3 g/dL (3.4-5.0); ALBUMIN/GLOBULIN RATIO 0.7 (1.0-1.7); CALCIUM 8.5 mg/dL (8.5-10.1); CREATININE 0.4 mg/dL (0.6-1.0); GFR 159.2; POTASSIUM 4.1 mmol/L (3.5-5.1); TOTAL BILIRUBIN 0.3 mg/dL (0.2-1.0); TOTAL PROTEIN 5.4 g/dL (6.4-8.2)
[2017-11-24] MEDS: MENTHOL/ZINC OXIDE TOPICAL OINTMENT 113GM JAR. TP SCH ×2 (09:00→20:17)
[2017-11-24] MEDS: ZINC SULFATE 220 MG CAPSULE. PO SCH (09:19)
[2017-11-24] MEDS: PRENATAL MULTIVITAMIN TABLET. PO SCH (09:20)
[2017-11-24] MEDS: FAMOTIDINE 20 MG TABLET PO SCH (09:20)
[2017-11-24] MEDS: ASCORBIC ACID 500 MG TABLET PO SCH (09:20)
[2017-11-24] MEDS: NICOTINE 21MG PATCH. TD SCH (09:20)
[2017-11-24] MEDS: buPROPion XL 300 MG TAB.ER.24H. PO SCH (09:20)
[2017-11-24] MEDS: predniSONE 20 MG TABLET PO SCH (09:20)
[2017-11-24] MEDS: cefTRIAXone IM 1 GM VIAL IM SCH (09:21)
[2017-11-24] MEDS: LACTOBACILLUS RHAMNOSUS GG 1 CAPSULE. PO SCH ×2 (09:21→20:13)
[2017-11-24] MEDS: CLOTRIMAZOLE/BETAMETH 1%-0.05% TOPICAL CREAM 15GM TUBE. TP SCH ×2 (09:22→20:16)
[2017-11-24 09:30] LABS: BASO # 0.1 x10^3/uL (0.0-0.2); BASO % 1 % (0-3); EOS # 0.1 x10^3/uL (0.0-0.7); EOS % 1 % (0-3); HEMATOCRIT 34.8 % (36.0-47.0); HEMOGLOBIN 11.7 g/dL (12.0-15.5); LYMPH # 2.5 x10^3/uL (1.0-4.8); LYMPH % 22 % (24-48); MEAN CORPUSCULAR HEMOGLOBIN 30 pg (25-35); MEAN CORPUSCULAR HGB CONC 34 g/dL (31-37); MEAN CORPUSCULAR VOLUME 89 fL (79-100); MONO # 0.9 x10^3/uL (0.0-1.1); MONO % 8 % (0-9); NEUT # 8.1 x10^3uL (1.8-7.7); NEUT % 69 % (31-73); PLATELET COUNT 286 x10^3/uL (140-400); RED BLOOD COUNT 3.94 x10^6/uL (3.50-5.40); RED CELL DISTRIBUTION WIDTH 15.1 % (11.5-14.5); WHITE BLOOD COUNT 11.7 x10^3/uL (4.0-11.0)
--- NOTE | 2017-11-24 11:32 | RAD ---
Portable chest, 11/24/2017: History: Pneumonia Comparison is made to a study from 11/23/2017. The heart is within normal limits in size. There is calcific plaquing of the aorta. Aeration of the lung bases has improved slightly. There is persistent prominence of the basilar interstitial markings. A focal parenchymal opacity persists in the right lung base. No significant pleural fluid is seen. No new abnormality is detected. IMPRESSION: 1. Persistent right basilar opacity suggesting pneumonia. 2. Underlying prominent bibasilar pulmonary interstitial opacities may be due to chronic lung disease or additional pneumonia. 3. Further imaging follow-up and possible CT scanning is suggested to exclude a neoplastic etiology in the right lower chest.
--- NOTE | 2017-11-24 14:29 | RAD ---
CT CHEST WO CONTRAST Indication: Pneumonia Technique: Noncontrast CT imaging was performed of the chest, multiplanar reconstruction images submitted. One or more of the following individualized dose reduction techniques were utilized for this examination: 1. Automated exposure control 2. Adjustment of the mA and/or kV according to patient size 3. Use of iterative reconstruction technique. Contrast: None Comparison: There is no previous similar exam available comparison made with chest radiograph November 24, 2017 Findings: There is some motion degradation. There is somewhat spiculated masslike density of the right lower lobe up to about 4.8 cm transverse by 3.4 cm AP by 3.8 cm CC. This abuts the major fissure. There is slightly irregular subpleural nodule right lower lobe axial image 33 up to 1.5 x 0.5 x 1.4 cm CC, adjacent small focus of nodularity also present. There are some small foci of nodularity of the right upper lobe difficult to characterize due to motion, fairly dense. There is centrilobular emphysema. There are some calcified left upper lobe nodules, also fairly dense small left lower lobe nodule. There is a small probably noncalcified left lower lobe nodule axial image 36 about 0.3 cm. There is no pericardial effusion or pneumothorax. There is trace dependent right pleural effusion. There is prominent coronary calcification. Thoracic aortic caliber is within normal limits. No significantly enlarged nodes are identified of the chest. There is accentuation of thoracic kyphosis. IMPRESSION: 1. There is large somewhat spiculated area of masslike density of the right lower lobe abutting the major fissure, separate irregular subpleural nodule right lower lobe. While infiltrate would be a possibility, appearance is more concerning for malignancy. There is small focus of noncalcified nodularity left lower lobe, some other calcified nodules. 2. There is prominent coronary calcification. 3. There is centrilobular emphysema. Electronically signed by: Mio Stafford MD (11/24/2017 2:26 PM) [id number]
[2017-11-24 16:05] VITALS: BP 121/74
[2017-11-24] MEDS: MIRTAZAPINE 7.5 MG TABLET. PO SCH (20:13)
[2017-11-24] MEDS: ENOXAPARIN 40 MG/0.4 ML DISP.SYRIN. SQ SCH (20:17)
--- NOTE | 2017-11-24 21:03 | PDOC ---
Exam Note: Ryan Note: Please also refer to the separate dictated note~for this date of service dictated separately.~Patient seen individually. Discussed the patient with Nursing staff reviewed the chart.~Reviewed interim history and current functioning. Reviewed vital signs,~Labs/ Radiology~and current medications noted below. Continue current treatment with the changes noted in the dictated addendum note Assessment: Vital Signs: Vital Signs Date Time Temp Pulse Resp B/P (MAP) Pulse Ox O2 Delivery O2 Flow Rate FiO2 11/24/17 16:05 98.1 108 18 121/74 (90) 96 11/24/17 15:55 Nasal Cannula 3.0 I&O Intake and Output 11/24/17 07:00 Intake Total 1740 ml Balance 1740 ml Intake Oral 1740 ml # Voids 1 # Bowel Movements 2 Labs: Laboratory Tests Test 11/24/17 07:13 11/24/17 09:10 Sodium Level 136 mmol/L (136-145) Potassium Level 4.1 mmol/L (3.5-5.1) Chloride Level 98 mmol/L (98-107) Carbon Dioxide Level 37 mmol/L (21-32) H Anion Gap 1 (6-14) L Blood Urea Nitrogen 13 mg/dL (7-20) Creatinine 0.4 mg/dL (0.6-1.0) L Estimated GFR (Cockcroft-Gault) 159.2 BUN/Creatinine Ratio 33 (6-20) H Glucose Level 85 mg/dL (70-99) Calcium Level 8.5 mg/dL (8.5-10.1) Total Bilirubin 0.3 mg/dL (0.2-1.0) Aspartate Amino Transferase (AST) 22 U/L (15-37) Alanine Aminotransferase (ALT) 88 U/L (14-59) H Alkaline Phosphatase 92 U/L (46-116) Total Protein 5.4 g/dL (6.4-8.2) L Albumin 2.3 g/dL (3.4-5.0) L Albumin/Globulin Ratio 0.7 (1.0-1.7) L White Blood Count 11.7 x10^3/uL (4.0-11.0) H Red Blood Count 3.94 x10^6/uL (3.50-5.40) Hemoglobin 11.7 g/dL (12.0-15.5) L Hematocrit 34.8 % (36.0-47.0) L Mean Corpuscular Volume 89 fL (79-100) Mean Corpuscular Hemoglobin 30 pg (25-35) Mean Corpuscular Hemoglobin Concent 34 g/dL (31-37) Red Cell Distribution Width 15.1 % (11.5-14.5) H Platelet Count 286 x10^3/uL (140-400) Neutrophils (%) (Auto) 69 % (31-73) Lymphocytes (%) (Auto) 22 % (24-48) L Monocytes (%) (Auto) 8 % (0-9) Eosinophils (%) (Auto) 1 % (0-3) Basophils (%) (Auto) 1 % (0-3) Neutrophils # (Auto) 8.1 x10^3uL (1.8-7.7) H Lymphocytes # (Auto) 2.5 x10^3/uL (1.0-4.8) Monocytes # (Auto) 0.9 x10^3/uL (0.0-1.1) Eosinophils # (Auto) 0.1 x10^3/uL (0.0-0.7) Basophils # (Auto) 0.1 x10^3/uL (0.0-0.2) Current Medications: Meds: Current Medications Acetaminophen (Tylenol) 650 mg PRN Q6HRS PRN PO PAIN / TEMP Last administered on 11/21/17at 19:41; Start 11/19/17 at 12:45 Multi-Ingredient Ointment (Analgesic [place]) 1 jerome PRN QID PRN TP MUSCLE PAIN; Start 11/19/17 at 12:45 Al Hydroxide/Mg Hydroxide (Mylanta Plus Xs) 15 ml PRN AFTMEALHC PRN PO DYSPEPSIA; Start 11/19/17 at 12:45 Magnesium Hydroxide (Milk Of Magnesia) 2,400 mg PRN QHS PRN PO CONSTIPATION; Start 11/19/17 at 12:45 Nicotine (Nicoderm Cq 21mg) 1 patch DAILY TD Last administered on 11/24/17at 09: 20; Start 11/19/17 at 13:30 Acetaminophen (Tylenol) 650 mg PRN Q6HRS PRN PO PAIN / TEMP; Start 11/19/17 at 13:00; Stop 11/19/17 at 13:11; Status DC Albuterol Sulfate (Ventolin) 2.5 mg PRN Q4HRS PRN NEB SHORTNESS OF BREATH; Start 11/19/17 at 13:00 Famotidine (Pepcid) 20 mg DAILY PO Last administered on 11/24/17at 09:20; Start 11/20/17 at 09:00 Guaifenesin (Mucinex Er) 600 mg BID PO Last administered on 11/24/17at 20:13; Start 11/19/17 at 21:00 Albuterol/ Ipratropium (Duoneb) 3 ml Q4HRS W/A NEB Last administered on at 15:55; Start 11/19/17 at 14:00 Calamine/Phenol (Calmoseptine) 1 jerome BID TP ; Start 11/19/17 at 21:00; Stop at 21:00; Status DC Prednisone (Prednisone) 10 mg DAILY PO ; Start 11/20/17 at 09:00; Stop 11/20/17 at 09:00; Status DC Prednisone (Prednisone) 30 mg DAILY PO ; Start 11/20/17 at 09:00; Stop 11/20/17 at 09:00; Status DC Prednisone (Prednisone) 10 mg Taper DAILY PO Last administered on 11/24/17at 09: 20; Start 11/20/17 at 09:00; Stop 11/28/17 at 08:59 Influenza Virus Vaccine Quadrival (Fluarix Quad [id number] Syringe) 0.5 ml ONCE ONCE VAX IM ; Start 11/19/17 at 13:30; Stop 11/19/17 at 17:52; Status DC Calamine/Phenol (Calmoseptine) 1 jerome BID TP Last administered on 11/24/17at 20: 17; Start 11/19/17 at 21:00 Enoxaparin Sodium (Lovenox) 40 mg Q24H SQ Last administered on 11/24/17at 20:17 ; Start 11/19/17 at 21:00 Influenza Virus Vaccine Quadrival (Fluarix Quad 1134-0880 Syringe) 0.5 ml ONCE ONCE VAX IM Last administered on 11/20/17at 18:43; Start 11/20/17 at 08:00; Stop 11/20/17 at 08:01; Status DC Betamethasone/ Clotrimazole (Lotrisone) 1 jerome BID TP Last administered on at 20:16; Start 11/20/17 at 21:00 Prenat Multivit/ Dj Instructor/Iron/Folic Ac (Multivitamin ) 1 tab DAILY PO Last administered on 11/24/17at 09:20; Start 11/21/17 at 09:00 Ascorbic Acid (Vitamin C) 500 mg DAILY PO Last administered on 11/24/17at 09:20 ; Start 11/21/17 at 09:00 Zinc Sulfate (Orazinc) 220 mg DAILY PO Last administered on 11/24/17at 09:19; Start 11/21/17 at 09:00 Bupropion HCl (Wellbutrin Xl) 150 mg DAILY PO Last administered on 11/22/17at 11 :01; Start 11/21/17 at 13:15; Stop 11/22/17 at 18:19; Status DC Mirtazapine (Remeron) 7.5 mg QHS PO Last administered on 11/24/17at 20:13; Start 11/21/17 at 21:00 Bupropion HCl (Wellbutrin Xl) 300 mg DAILY PO Last administered on 11/24/17at 09 :20; Start 11/23/17 at 09:00 Vitamin A/Vitamin D (Vitamin A & D Ointment) 1 jerome PRN Q1HR PRN TP SKIN PROTECTION; Start 11/23/17 at 11:30 Ceftriaxone Sodium (Rocephin Im) 1 gm DAILY IM Last administered on 11/24/17at 09:21; Start 11/24/17 at 09:00; Stop 11/26/17 at 23:59 Lactobacillus Rhamnosus (Culturelle) 1 cap BID PO Last administered on at 20:13; Start 11/24/17 at 09:00 Active Scripts Active Reported Prednisone 10 Mg Tablet 10 Mg PO DAILY 4 Days To be Started after completion of 20mg Daily order is complete. Prednisone 20 Mg Tablet 20 Mg PO DAILY 4 Days To be started after Completion of 30mg Daily order is complete Prednisone 10 Mg Tablet 30 Mg PO DAILY 4 Days Calmoseptine Ointment (Menthol/Zinc Oxide) 71 Gm Oint...g. 1 Jerome TP BID Duoneb 0.5-3(2.5) Mg/3 Ml (Albuterol/Ipratropium) 3 Ml Ampul.neb 3 Ml NEB Q4HRS W/A Mucinex (Guaifenesin) 600 Mg Tablet.er 600 Mg PO BID Pepcid (Famotidine) 20 Mg Tablet 20 Mg PO DAILY Albuterol Sulfate Neb Soln (Albuterol Sulfate) 2.5 Mg/3 Ml Vial.neb 2.5 Mg NEB PRN Q4HRS PRN Tylenol (Acetaminophen) 325 Mg Tablet 650 Mg PO PRN Q6HRS PRN I have reviewed the current psychotropics carefully including drug interactions. Risk benefit ratio favors no change other than as noted in my dictated progress note. Diagnosis: Problems: (1) Anxiety disorder (2) Major depressive disorder, recurrent episode (3) Dementia, vascular, with depression (4) Dementia, vascular, with delusions (5) Dementia in Alzheimer's disease with depression (6) Dementia in Alzheimer's disease with delusions (7) Dementia associated with alcoholism with behavioral disturbance DEMETRIUS JURADO MD Nov 24, 2017 21:03
[2017-11-25 05:55] VITALS: BP 118/59
[2017-11-25] MEDS: IPRATRPIUM/ALBUTEROL 0.5/2.5MG 3 ML NEBU. NEB SCH ×5 (06:05→20:22)
[2017-11-25] MEDS: MENTHOL/ZINC OXIDE TOPICAL OINTMENT 113GM JAR. TP SCH ×2 (09:00→19:51)
[2017-11-25] MEDS: CLOTRIMAZOLE/BETAMETH 1%-0.05% TOPICAL CREAM 15GM TUBE. TP SCH ×2 (09:00→22:55)
[2017-11-25] MEDS: NICOTINE 21MG PATCH. TD SCH (10:02)
[2017-11-25] MEDS: LACTOBACILLUS RHAMNOSUS GG 1 CAPSULE. PO SCH ×2 (10:02→19:49)
[2017-11-25] MEDS: predniSONE 20 MG TABLET PO SCH (10:02)
[2017-11-25] MEDS: PRENATAL MULTIVITAMIN TABLET. PO SCH (10:02)
[2017-11-25] MEDS: ASCORBIC ACID 500 MG TABLET PO SCH (10:03)
[2017-11-25] MEDS: FAMOTIDINE 20 MG TABLET PO SCH (10:03)
[2017-11-25] MEDS: buPROPion XL 300 MG TAB.ER.24H. PO SCH (10:03)
[2017-11-25] MEDS: ZINC SULFATE 220 MG CAPSULE. PO SCH (10:03)
[2017-11-25] MEDS: cefTRIAXone IM 1 GM VIAL IM SCH (10:06)
--- NOTE | 2017-11-25 13:54 | PN ---
DATE: 11/23/2017 PSYCHIATRIC PROGRESS NOTE This is a late entry 11/23/2017 covers elements not covered in my initial note 11/23/2017. SUBJECTIVE: I met with the patient in the evening of 11/23/2017. Per nursing report, the patient has been depressed, paranoid, suspicious, grumpy, irritable, angry. She is reasonably oriented, often refuses to answer questions. REVIEW OF SYSTEMS: Impaired ambulation with walker, complains of some shortness of breath. She has some wheezing, withdrawn ____ bed, has wounds on her bottom. UA is negative. WBC was increased, elevated the day before. We will defer to Dr. Encinas. Blood culture is pending. X-ray does show pneumonia and she is receiving IM Rocephin x [address] Encinas. REVIEW OF SYSTEMS: Positive for the wheezing, impaired ambulation, tiredness. No CV, , eye, ENT system symptoms on review. MENTAL STATUS EXAM: Reasonably oriented. Speech coherent, poor eye contact. Abstraction fair, computation impaired, language function intact, attention span short. Mood and affect depressed. LABORATORY DATA: Reviewed. IMPRESSION: Unchanged from initial note and additional diagnosis of pneumonia. PLAN: Continue psychotropics mentioned in my initial note. Wellbutrin increased to 300 mg a day, further adjustments depending on her symptoms remnant after resolution of pneumonia. MAN Mohsen JURADO MD DR: OMAR/denny JOB#: [id number] / [id number]
--- NOTE | 2017-11-25 14:10 | PN ---
DATE: 11/24/2017 This late entry, 11/24/2017, covers elements not covered in my initial note of 11/24/2017. SUBJECTIVE: I met with the patient the evening of 11/24/2017. The patient was also staffed at the treatment team meeting with the entire team morning of 11/24/2017. Reviewed her history at length and also met with Dr. Encinas the evening of 11/24/2017 and addressed the patient's lung mass, which was found on CT chest and Dr. Encinas is going to call the family on this and perhaps have them shared this with the patient as they may be more adept at how they share it with her than we would be able to. The patient slept 8-3/4 hours previous evening. Reviewed her past history at length and at one point, she used to drink 30 beers a day from 1984 to 2012. REVIEW OF SYSTEMS: Ambulation impaired, in wheelchair. No CV, , pulmonary, eye system symptoms on review, still somewhat withdrawn, depressed, poor eye contact. MENTAL STATUS EXAM: Oriented to herself and situation. Speech moderate latency, often responses monosyllabic. Abstraction fair, computation impaired, language function intact, attention span short. Mood and affect still depressed. LABORATORY DATA: Reviewed. IMPRESSION: Major depressive disorder with psychotic features in partial remission; anxiety disorder, unspecified; psychotic disorder, unspecified. Rest unchanged. PLAN: Continue current psychotropics mentioned in my initial note. Medical management with doctor with Dr. Encinas. MAN Mohsen JURADO MD DR: OMAR/denny JOB#: [id number] / [id number]
[2017-11-25 16:14] VITALS: BP 120/62
[2017-11-25] MEDS: MIRTAZAPINE 7.5 MG TABLET. PO SCH (19:50)
[2017-11-25] MEDS: ENOXAPARIN 40 MG/0.4 ML DISP.SYRIN. SQ SCH (19:51)
--- NOTE | 2017-11-25 21:04 | PDOC ---
Exam Note: Ryan Note: Please also refer to the separate dictated note~for this date of service dictated separately.~Patient seen individually. Discussed the patient with Nursing staff reviewed the chart.~Reviewed interim history and current functioning. Reviewed vital signs,~Labs/ Radiology~and current medications noted below. Continue current treatment with the changes noted in the dictated addendum note Assessment: Vital Signs: Vital Signs Date Time Temp Pulse Resp B/P (MAP) Pulse Ox O2 Delivery O2 Flow Rate FiO2 11/25/17 20:19 96 Nasal Cannula 4.5 11/25/17 16:14 97.1 107 20 120/62 (81) I&O Intake and Output 11/25/17 07:00 Intake Total 1200 ml Balance 1200 ml Intake Oral 1200 ml # Voids 2 # Bowel Movements 1 Current Medications: Meds: Current Medications Acetaminophen (Tylenol) 650 mg PRN Q6HRS PRN PO PAIN / TEMP Last administered on 11/21/17at 19:41; Start 11/19/17 at 12:45 Multi-Ingredient Ointment (Analgesic [place]) 1 jerome PRN QID PRN TP MUSCLE PAIN; Start 11/19/17 at 12:45 Al Hydroxide/Mg Hydroxide (Mylanta Plus Xs) 15 ml PRN AFTMEALHC PRN PO DYSPEPSIA; Start 11/19/17 at 12:45 Magnesium Hydroxide (Milk Of Magnesia) 2,400 mg PRN QHS PRN PO CONSTIPATION; Start 11/19/17 at 12:45 Nicotine (Nicoderm Cq 21mg) 1 patch DAILY TD Last administered on 11/25/17at 10: 02; Start 11/19/17 at 13:30 Acetaminophen (Tylenol) 650 mg PRN Q6HRS PRN PO PAIN / TEMP; Start 11/19/17 at 13:00; Stop 11/19/17 at 13:11; Status DC Albuterol Sulfate (Ventolin) 2.5 mg PRN Q4HRS PRN NEB SHORTNESS OF BREATH; Start 11/19/17 at 13:00 Famotidine (Pepcid) 20 mg DAILY PO Last administered on 11/25/17at 10:03; Start 11/20/17 at 09:00 Guaifenesin (Mucinex Er) 600 mg BID PO Last administered on 11/25/17at 19:50; Start 11/19/17 at 21:00 Albuterol/ Ipratropium (Duoneb) 3 ml Q4HRS W/A NEB Last administered on at 20:22; Start 11/19/17 at 14:00 Calamine/Phenol (Calmoseptine) 1 jerome BID TP ; Start 11/19/17 at 21:00; Stop at 21:00; Status DC Prednisone (Prednisone) 10 mg DAILY PO ; Start 11/20/17 at 09:00; Stop 11/20/17 at 09:00; Status DC Prednisone (Prednisone) 30 mg DAILY PO ; Start 11/20/17 at 09:00; Stop 11/20/17 at 09:00; Status DC Prednisone (Prednisone) 10 mg Taper DAILY PO Last administered on 11/25/17at 10: 02; Start 11/20/17 at 09:00; Stop 11/28/17 at 08:59 Influenza Virus Vaccine Quadrival (Fluarix Quad [id number] Syringe) 0.5 ml ONCE ONCE VAX IM ; Start 11/19/17 at 13:30; Stop 11/19/17 at 17:52; Status DC Calamine/Phenol (Calmoseptine) 1 jerome BID TP Last administered on 11/24/17at 20: 17; Start 11/19/17 at 21:00 Enoxaparin Sodium (Lovenox) 40 mg Q24H SQ Last administered on 11/25/17at 19:51 ; Start 11/19/17 at 21:00 Influenza Virus Vaccine Quadrival (Fluarix Quad Syringe) 0.5 ml ONCE ONCE VAX IM Last administered on 11/20/17at 18:43; Start 11/20/17 at 08:00; Stop 11/20/17 at 08:01; Status DC Betamethasone/ Clotrimazole (Lotrisone) 1 jerome BID TP Last administered on at 09:00; Start 11/20/17 at 21:00 Prenat Multivit/ [place]/Iron/Folic Ac (Multivitamin ) 1 tab DAILY PO Last administered on 11/25/17at 10:02; Start 11/21/17 at 09:00 Ascorbic Acid (Vitamin C) 500 mg DAILY PO Last administered on 11/25/17at 10:03 ; Start 11/21/17 at 09:00 Zinc Sulfate (Orazinc) 220 mg DAILY PO Last administered on 11/25/17at 10:03; Start 11/21/17 at 09:00 Bupropion HCl (Wellbutrin Xl) 150 mg DAILY PO Last administered on 11/22/17at 11 :01; Start 11/21/17 at 13:15; Stop 11/22/17 at 18:19; Status DC Mirtazapine (Remeron) 7.5 mg QHS PO Last administered on 11/25/17at 19:50; Start 11/21/17 at 21:00 Bupropion HCl (Wellbutrin Xl) 300 mg DAILY PO Last administered on 11/25/17at 10 :03; Start 11/23/17 at 09:00 Vitamin A/Vitamin D (Vitamin A & D Ointment) 1 jerome PRN Q1HR PRN TP SKIN PROTECTION; Start 11/23/17 at 11:30 Ceftriaxone Sodium (Rocephin Im) 1 gm DAILY IM Last administered on 11/25/17at 10:06; Start 11/24/17 at 09:00; Stop 11/26/17 at 23:59 Lactobacillus Rhamnosus (Culturelle) 1 cap BID PO Last administered on at 19:49; Start 11/24/17 at 09:00 Active Scripts Active Reported Prednisone 10 Mg Tablet 10 Mg PO DAILY 4 Days To be Started after completion of 20mg Daily order is complete. Prednisone 20 Mg Tablet 20 Mg PO DAILY 4 Days To be started after Completion of 30mg Daily order is complete Prednisone 10 Mg Tablet 30 Mg PO DAILY 4 Days Calmoseptine Ointment (Menthol/Zinc Oxide) 71 Gm Oint...g. 1 Jerome TP BID Duoneb 0.5-3(2.5) Mg/3 Ml (Albuterol/Ipratropium) 3 Ml Ampul.neb 3 Ml NEB Q4HRS W/A Mucinex (Guaifenesin) 600 Mg Tablet.er 600 Mg PO BID Pepcid (Famotidine) 20 Mg Tablet 20 Mg PO DAILY Albuterol Sulfate Neb Soln (Albuterol Sulfate) 2.5 Mg/3 Ml Vial.neb 2.5 Mg NEB PRN Q4HRS PRN Tylenol (Acetaminophen) 325 Mg Tablet 650 Mg PO PRN Q6HRS PRN I have reviewed the current psychotropics carefully including drug interactions. Risk benefit ratio favors no change other than as noted in my dictated progress note. Diagnosis: Problems: (1) Anxiety disorder (2) Major depressive disorder, recurrent episode (3) Dementia, vascular, with depression (4) Dementia, vascular, with delusions (5) Dementia in Alzheimer's disease with depression (6) Dementia in Alzheimer's disease with delusions (7) Dementia associated with alcoholism with behavioral disturbance DEMETRIUS JURADO MD Nov 25, 2017 21:04
[2017-11-26 05:53] VITALS: BP 116/58
[2017-11-26] MEDS: IPRATRPIUM/ALBUTEROL 0.5/2.5MG 3 ML NEBU. NEB SCH ×5 (06:00→21:45)
[2017-11-26] MEDS: LACTOBACILLUS RHAMNOSUS GG 1 CAPSULE. PO SCH ×2 (07:51→19:58)
[2017-11-26] MEDS: PRENATAL MULTIVITAMIN TABLET. PO SCH (07:51)
[2017-11-26] MEDS: buPROPion XL 300 MG TAB.ER.24H. PO SCH (07:51)
[2017-11-26] MEDS: ASCORBIC ACID 500 MG TABLET PO SCH (07:51)
[2017-11-26] MEDS: ZINC SULFATE 220 MG CAPSULE. PO SCH (07:51)
[2017-11-26] MEDS: FAMOTIDINE 20 MG TABLET PO SCH (07:52)
[2017-11-26] MEDS: predniSONE 20 MG TABLET PO SCH (07:52)
[2017-11-26] MEDS: NICOTINE 21MG PATCH. TD SCH (07:52)
[2017-11-26] MEDS: VITS A & D/LANOLIN TOPICAL OINTMENT 56GM TUBE. TP PRN (07:55)
[2017-11-26] MEDS: cefTRIAXone IM 1 GM VIAL IM SCH (07:56)
[2017-11-26] MEDS: CLOTRIMAZOLE/BETAMETH 1%-0.05% TOPICAL CREAM 15GM TUBE. TP SCH ×2 (07:56→20:03)
[2017-11-26] MEDS: MENTHOL/ZINC OXIDE TOPICAL OINTMENT 113GM JAR. TP SCH ×2 (07:56→20:03)
[2017-11-26 10:11] LABS: BASO # 0.1 x10^3/uL (0.0-0.2); BASO % 1 % (0-3); EOS # 0.3 x10^3/uL (0.0-0.7); EOS % 3 % (0-3); HEMOGLOBIN 11.8 g/dL (12.0-15.5); LYMPH # 1.5 x10^3/uL (1.0-4.8); LYMPH % 14 % (24-48); MEAN CORPUSCULAR HEMOGLOBIN 30 pg (25-35); MEAN CORPUSCULAR HGB CONC 34 g/dL (31-37); MEAN CORPUSCULAR VOLUME 89 fL (79-100); MONO # 0.8 x10^3/uL (0.0-1.1); MONO % 8 % (0-9); NEUT # 7.6 x10^3uL (1.8-7.7); NEUT % 74 % (31-73); PLATELET COUNT 260 x10^3/uL (140-400); RED BLOOD COUNT 3.96 x10^6/uL (3.50-5.40); RED CELL DISTRIBUTION WIDTH 15.1 % (11.5-14.5); WHITE BLOOD COUNT 10.2 x10^3/uL (4.0-11.0)
[2017-11-26 16:05] VITALS: BP 113/59
--- NOTE | 2017-11-26 18:04 | PN ---
DATE: 11/25/2017 This is a late entry, 11/25/2017, covers the elements not covered in my initial note, 11/25/2017. SUBJECTIVE: I met with the patient in the evening of 11/25/2017. As per nursing report, the patient is less depressed, more interactive, brighter. She does have a lung mass. the family and the family prefer not to let the patient know at this time at least. REVIEW OF SYSTEMS: Shortness of breath, impaired ambulation in wheelchair. No CV, , eye, ENT system symptoms on review. MENTAL STATUS EXAM: Oriented to herself and situation. Speech has some latency, coherent. Abstraction fair, computation impaired, language function intact, attention span short. Mood and affect less withdrawn, less depressed. LABORATORY DATA: Reviewed. IMPRESSION: Unchanged from initial note. PLAN: Continue current psychotropics, may increase Wellbutrin further to maximum dosage gradually for 50 mg a day. DEMETRIUS JURADO MD DR: OMAR/denny JOB#: [id number] / [id number]
[2017-11-26] MEDS: MIRTAZAPINE 7.5 MG TABLET. PO SCH (19:58)
[2017-11-26] MEDS: ENOXAPARIN 40 MG/0.4 ML DISP.SYRIN. SQ SCH (20:02)
--- NOTE | 2017-11-26 22:05 | PDOC ---
Exam Note: Ryan Note: Please also refer to the separate dictated note~for this date of service dictated separately.~Patient seen individually. Discussed the patient with Nursing staff reviewed the chart.~Reviewed interim history and current functioning. Reviewed vital signs,~Labs/ Radiology~and current medications noted below. Continue current treatment with the changes noted in the dictated addendum note Assessment: Vital Signs: Vital Signs Date Time Temp Pulse Resp B/P (MAP) Pulse Ox O2 Delivery O2 Flow Rate FiO2 11/26/17 21:30 95 Nasal Cannula 4.0 11/26/17 16:05 98.4 104 22 113/59 (77) I&O Intake and Output 11/26/17 07:00 Intake Total 1800 ml Balance 1800 ml Intake Oral 1800 ml # Bowel Movements 2 Labs: Laboratory Tests Test 11/26/17 10:05 White Blood Count 10.2 x10^3/uL (4.0-11.0) Red Blood Count 3.96 x10^6/uL (3.50-5.40) Hemoglobin 11.8 g/dL (12.0-15.5) L Hematocrit 35.0 % (36.0-47.0) L Mean Corpuscular Volume 89 fL (79-100) Mean Corpuscular Hemoglobin 30 pg (25-35) Mean Corpuscular Hemoglobin Concent 34 g/dL (31-37) Red Cell Distribution Width 15.1 % (11.5-14.5) H Platelet Count 260 x10^3/uL (140-400) Neutrophils (%) (Auto) 74 % (31-73) H Lymphocytes (%) (Auto) 14 % (24-48) L Monocytes (%) (Auto) 8 % (0-9) Eosinophils (%) (Auto) 3 % (0-3) Basophils (%) (Auto) 1 % (0-3) Neutrophils # (Auto) 7.6 x10^3uL (1.8-7.7) Lymphocytes # (Auto) 1.5 x10^3/uL (1.0-4.8) Monocytes # (Auto) 0.8 x10^3/uL (0.0-1.1) Eosinophils # (Auto) 0.3 x10^3/uL (0.0-0.7) Basophils # (Auto) 0.1 x10^3/uL (0.0-0.2) Current Medications: Meds: Current Medications Acetaminophen (Tylenol) 650 mg PRN Q6HRS PRN PO PAIN / TEMP Last administered on 11/21/17at 19:41; Start 11/19/17 at 12:45 Multi-Ingredient Ointment (Analgesic [place]) 1 jerome PRN QID PRN TP MUSCLE PAIN; Start 11/19/17 at 12:45 Al Hydroxide/Mg Hydroxide (Mylanta Plus Xs) 15 ml PRN AFTMEALHC PRN PO DYSPEPSIA; Start 11/19/17 at 12:45 Magnesium Hydroxide (Milk Of Magnesia) 2,400 mg PRN QHS PRN PO CONSTIPATION; Start 11/19/17 at 12:45 Nicotine (Nicoderm Cq 21mg) 1 patch DAILY TD Last administered on 11/26/17at 07: 52; Start 11/19/17 at 13:30 Acetaminophen (Tylenol) 650 mg PRN Q6HRS PRN PO PAIN / TEMP; Start 11/19/17 at 13:00; Stop 11/19/17 at 13:11; Status DC Albuterol Sulfate (Ventolin) 2.5 mg PRN Q4HRS PRN NEB SHORTNESS OF BREATH; Start 11/19/17 at 13:00 Famotidine (Pepcid) 20 mg DAILY PO Last administered on 11/26/17at 07:52; Start 11/20/17 at 09:00 Guaifenesin (Mucinex Er) 600 mg BID PO Last administered on 11/26/17at 19:58; Start 11/19/17 at 21:00 Albuterol/ Ipratropium (Duoneb) 3 ml Q4HRS W/A NEB Last administered on at 21:45; Start 11/19/17 at 14:00 Calamine/Phenol (Calmoseptine) 1 jerome BID TP ; Start 11/19/17 at 21:00; Stop at 21:00; Status DC Prednisone (Prednisone) 10 mg DAILY PO ; Start 11/20/17 at 09:00; Stop 11/20/17 at 09:00; Status DC Prednisone (Prednisone) 30 mg DAILY PO ; Start 11/20/17 at 09:00; Stop 11/20/17 at 09:00; Status DC Prednisone (Prednisone) 10 mg Taper DAILY PO Last administered on 11/26/17 07: 52; Start 11/20/17 at 09:00; Stop 11/28/17 at 08:59 Influenza Virus Vaccine Quadrival (Fluarix Quad [id number] Syringe) 0.5 ml ONCE ONCE VAX IM ; Start 11/19/17 at 13:30; Stop 11/19/17 at 17:52; Status DC Calamine/Phenol (Calmoseptine) 1 jerome BID TP Last administered on 11/26/17 20: 03; Start 11/19/17 at 21:00 Enoxaparin Sodium (Lovenox) 40 mg Q24H SQ Last administered on 11/26/17 20:02 ; Start 11/19/17 at 21:00 Influenza Virus Vaccine Quadrival (Fluarix Quad Syringe) 0.5 ml ONCE ONCE VAX IM Last administered on 11/20/17 18:43; Start 11/20/17 at 08:00; Stop 11/20/17 at 08:01; Status DC Betamethasone/ Clotrimazole (Lotrisone) 1 jerome BID TP Last administered on 20:03; Start 11/20/17 at 21:00 Prenat Multivit/ Sand Polisher/Iron/Folic Ac (Multivitamin ) 1 tab DAILY PO Last administered on 11/26/17 07:51; Start 11/21/17 at 09:00 Ascorbic Acid (Vitamin C) 500 mg DAILY PO Last administered on 11/26/17 07:51 ; Start 11/21/17 at 09:00 Zinc Sulfate (Orazinc) 220 mg DAILY PO Last administered on 11/26/17 07:51; Start 11/21/17 at 09:00 Bupropion HCl (Wellbutrin Xl) 150 mg DAILY PO Last administered on 11/22/17at 11 :01; Start 11/21/17 at 13:15; Stop 11/22/17 at 18:19; Status DC Mirtazapine (Remeron) 7.5 mg QHS PO Last administered on 11/26/17 19:58; Start 11/21/17 at 21:00 Bupropion HCl (Wellbutrin Xl) 300 mg DAILY PO Last administered on 11/26/17 07 :51; Start 11/23/17 at 09:00 Vitamin A/Vitamin D (Vitamin A & D Ointment) 1 jerome PRN Q1HR PRN TP SKIN PROTECTION Last administered on 11/26/17at 07:55; Start 11/23/17 at 11:30 Ceftriaxone Sodium (Rocephin Im) 1 gm DAILY IM Last administered on 11/26/17at 07:56; Start 11/24/17 at 09:00; Stop 11/26/17 at 23:59 Lactobacillus Rhamnosus (Culturelle) 1 cap BID PO Last administered on at 19:58; Start 11/24/17 at 09:00 Active Scripts Active Reported Prednisone 10 Mg Tablet 10 Mg PO DAILY 4 Days To be Started after completion of 20mg Daily order is complete. Prednisone 20 Mg Tablet 20 Mg PO DAILY 4 Days To be started after Completion of 30mg Daily order is complete Prednisone 10 Mg Tablet 30 Mg PO DAILY 4 Days Calmoseptine Ointment (Menthol/Zinc Oxide) 71 Gm Oint...g. 1 Jerome TP BID Duoneb 0.5-3(2.5) Mg/3 Ml (Albuterol/Ipratropium) 3 Ml Ampul.neb 3 Ml NEB Q4HRS W/A Mucinex (Guaifenesin) 600 Mg Tablet.er 600 Mg PO BID Pepcid (Famotidine) 20 Mg Tablet 20 Mg PO DAILY Albuterol Sulfate Neb Soln (Albuterol Sulfate) 2.5 Mg/3 Ml Vial.neb 2.5 Mg NEB PRN Q4HRS PRN Tylenol (Acetaminophen) 325 Mg Tablet 650 Mg PO PRN Q6HRS PRN I have reviewed the current psychotropics carefully including drug interactions. Risk benefit ratio favors no change other than as noted in my dictated progress note. Diagnosis: Problems: (1) Anxiety disorder (2) Major depressive disorder, recurrent episode (3) Dementia, vascular, with depression (4) Dementia, vascular, with delusions (5) Dementia in Alzheimer's disease with depression (6) Dementia in Alzheimer's disease with delusions (7) Dementia associated with alcoholism with behavioral disturbance DEMETRIUS JURADO MD Nov 26, 2017 22:05
[2017-11-27] MEDS: IPRATRPIUM/ALBUTEROL 0.5/2.5MG 3 ML NEBU. NEB SCH ×5 (05:54→21:43)
[2017-11-27 05:55] VITALS: BP 140/76
[2017-11-27] MEDS: FAMOTIDINE 20 MG TABLET PO SCH (07:44)
[2017-11-27] MEDS: buPROPion XL 300 MG TAB.ER.24H. PO SCH (07:44)
[2017-11-27] MEDS: ASCORBIC ACID 500 MG TABLET PO SCH (07:44)
[2017-11-27] MEDS: ZINC SULFATE 220 MG CAPSULE. PO SCH (07:44)
[2017-11-27] MEDS: LACTOBACILLUS RHAMNOSUS GG 1 CAPSULE. PO SCH ×2 (07:44→20:07)
[2017-11-27] MEDS: PRENATAL MULTIVITAMIN TABLET. PO SCH (07:44)
[2017-11-27] MEDS: predniSONE 20 MG TABLET PO SCH (07:45)
[2017-11-27] MEDS: NICOTINE 21MG PATCH. TD SCH (07:45)
[2017-11-27] MEDS: MENTHOL/ZINC OXIDE TOPICAL OINTMENT 113GM JAR. TP SCH ×2 (07:47→20:09)
[2017-11-27] MEDS: CLOTRIMAZOLE/BETAMETH 1%-0.05% TOPICAL CREAM 15GM TUBE. TP SCH ×2 (07:48→20:09)
[2017-11-27] MEDS: VITS A & D/LANOLIN TOPICAL OINTMENT 56GM TUBE. TP PRN (07:48)
[2017-11-27] MEDS: CEFPODOXIME PROXETIL 100 MG TABLET PO SCH ×2 (10:03→20:09)
--- NOTE | 2017-11-27 11:04 | PDOC ---
PROGRESS NOTES Assessment Late entry from discussion w/ Prabha p'ts DPOA from 11/26/17. Pt has presumed diagnosis of post-obstructive pneumonia due to a likely cancerous tumor. Prabha stated that she was not surprised as pt had smoked 3 packs per day and drank 30 beers per day for nearly her entire adult life. I told Prabha that I suspect that as long as pt has the tumor at its current size, she will likely keep getting pneumonia. Her WBC and O2 sats have improved on the Rocephin ( which we have changed to Vantin), but I suspect once she is off abx again, her pneumonia will recur. Pt also has underlying stage 4 COPD, which makes her a very poor operative candidate. Prabha tells me that pt has always said that if she were to get cancer, she would never want to undergo chemotherapy or radiation. Apparently, she watched her sister struggle with those treatments and pt decided long ago she would not go through that. I offered to transfer pt to a facility where they may be able to officially diagnose her cancer, and give them a better idea of prognosis, but Prabha felt (and I agree), that if pt is not going to have it treated there is not any point in having her undergo the invasive procedure to find out. I discussed Hospice with Prabha as well, as pt would likely qualify even without an official diagnosis. She says she is still discussing things with her siblings and would like to talk to the outreach and education social worker on Tuesday about their options. We also discussed pt's code status. Prabha states that pt has always made it clear that if she is terminally ill she wants to have her family around her when she passes. I told Prabha that in pt's current state of health, that if she were to require resuscitation, her chances of recovery would be <1%, and it may cause her a considerable amount of pain and misery to achieve that. Prabha expressed understanding that even if we try we may not be successful in keeping her alive long enough for her family to come in from [place]. She said she just wants us to try the best we can if something were to happen. For now pt will be left as full code. I have not yet told pt that she has a possible lung cancer. When I spoke to her earlier in the week about her pneumonia, pt was dismissive and told me to "leave me the hell alone." She has not asked anyone about the results of her scan. Prabha and her family wish to be present when they discuss this with her. I have asked her to arrange a time that they can talk to the outreach and education social worker as well as Gwen so that everyone can be on the same page. I did tell Prabha that if pt asks us about her CT result we will discuss it with her as it is her right. Prabha v/cullen. Problems: GUERDA CURIEL MD Nov 27, 2017 11:04
[2017-11-27 16:11] VITALS: BP 113/65
[2017-11-27] MEDS: MIRTAZAPINE 7.5 MG TABLET. PO SCH (20:08)
[2017-11-27] MEDS: ENOXAPARIN 40 MG/0.4 ML DISP.SYRIN. SQ SCH (20:10)
--- NOTE | 2017-11-27 21:04 | PDOC ---
Exam Note: Ryan Note: Please also refer to the separate dictated note~for this date of service dictated separately.~Patient seen individually. Discussed the patient with Nursing staff reviewed the chart.~Reviewed interim history and current functioning. Reviewed vital signs,~Labs/ Radiology~and current medications noted below. Continue current treatment with the changes noted in the dictated addendum note Assessment: Vital Signs: Vital Signs Date Time Temp Pulse Resp B/P (MAP) Pulse Ox O2 Delivery O2 Flow Rate FiO2 11/27/17 16:25 96 Nasal Cannula 3.5 11/27/17 16:11 98.0 113 18 113/65 (81) I&O Intake and Output 11/27/17 07:00 Intake Total 1200 ml Balance 1200 ml Intake Oral 1200 ml # Voids 3 # Bowel Movements 1 Current Medications: Meds: Current Medications Acetaminophen (Tylenol) 650 mg PRN Q6HRS PRN PO PAIN / TEMP Last administered on 11/21/17at 19:41; Start 11/19/17 at 12:45 Multi-Ingredient Ointment (Analgesic [place]) 1 jerome PRN QID PRN TP MUSCLE PAIN; Start 11/19/17 at 12:45 Al Hydroxide/Mg Hydroxide (Mylanta Plus Xs) 15 ml PRN AFTMEALHC PRN PO DYSPEPSIA; Start 11/19/17 at 12:45 Magnesium Hydroxide (Milk Of Magnesia) 2,400 mg PRN QHS PRN PO CONSTIPATION; Start 11/19/17 at 12:45 Nicotine (Nicoderm Cq 21mg) 1 patch DAILY TD Last administered on 11/27/17at 07: 45; Start 11/19/17 at 13:30 Acetaminophen (Tylenol) 650 mg PRN Q6HRS PRN PO PAIN / TEMP; Start 11/19/17 at 13:00; Stop 11/19/17 at 13:11; Status DC Albuterol Sulfate (Ventolin) 2.5 mg PRN Q4HRS PRN NEB SHORTNESS OF BREATH; Start 11/19/17 at 13:00 Famotidine (Pepcid) 20 mg DAILY PO Last administered on 11/27/17at 07:44; Start 11/20/17 at 09:00 Guaifenesin (Mucinex Er) 600 mg BID PO Last administered on 11/27/17at 20:08; Start 11/19/17 at 21:00 Albuterol/ Ipratropium (Duoneb) 3 ml Q4HRS W/A NEB Last administered on at 16:25; Start 11/19/17 at 14:00 Calamine/Phenol (Calmoseptine) 1 jerome BID TP ; Start 11/19/17 at 21:00; Stop at 21:00; Status DC Prednisone (Prednisone) 10 mg DAILY PO ; Start 11/20/17 at 09:00; Stop 11/20/17 at 09:00; Status DC Prednisone (Prednisone) 30 mg DAILY PO ; Start 11/20/17 at 09:00; Stop 11/20/17 at 09:00; Status DC Prednisone (Prednisone) 10 mg Taper DAILY PO Last administered on 11/27/17at 07: 45; Start 11/20/17 at 09:00; Stop 11/28/17 at 08:59 Influenza Virus Vaccine Quadrival (Fluarix Quad [id number] Syringe) 0.5 ml ONCE ONCE VAX IM ; Start 11/19/17 at 13:30; Stop 11/19/17 at 17:52; Status DC Calamine/Phenol (Calmoseptine) 1 jerome BID TP Last administered on 11/27/17 20: 09; Start 11/19/17 at 21:00 Enoxaparin Sodium (Lovenox) 40 mg Q24H SQ Last administered on 11/27/17at 20:10 ; Start 11/19/17 at 21:00 Influenza Virus Vaccine Quadrival (Fluarix Quad [id number] Syringe) 0.5 ml ONCE ONCE VAX IM Last administered on 11/20/17at 18:43; Start 11/20/17 at 08:00; Stop 11/20/17 at 08:01; Status DC Betamethasone/ Clotrimazole (Lotrisone) 1 jerome BID TP Last administered on at 20:09; Start 11/20/17 at 21:00 Prenat Multivit/ [place]/Iron/Folic Ac (Multivitamin ) 1 tab DAILY PO Last administered on 11/27/17 07:44; Start 11/21/17 at 09:00 Ascorbic Acid (Vitamin C) 500 mg DAILY PO Last administered on 11/27/17at 07:44 ; Start 11/21/17 at 09:00 Zinc Sulfate (Orazinc) 220 mg DAILY PO Last administered on 11/27/17 07:44; Start 11/21/17 at 09:00 Bupropion HCl (Wellbutrin Xl) 150 mg DAILY PO Last administered on 11/22/17at 11 :01; Start 11/21/17 at 13:15; Stop 11/22/17 at 18:19; Status DC Mirtazapine (Remeron) 7.5 mg QHS PO Last administered on 11/27/17at 20:08; Start 11/21/17 at 21:00 Bupropion HCl (Wellbutrin Xl) 300 mg DAILY PO Last administered on 11/27/17 07 :44; Start 11/23/17 at 09:00 Vitamin A/Vitamin D (Vitamin A & D Ointment) 1 jerome PRN Q1HR PRN TP SKIN PROTECTION Last administered on 11/27/17 07:48; Start 11/23/17 at 11:30 Ceftriaxone Sodium (Rocephin Im) 1 gm DAILY IM Last administered on 11/26/17at 07:56; Start 11/24/17 at 09:00; Stop 11/27/17 at 00:00; Status DC Lactobacillus Rhamnosus (Culturelle) 1 cap BID PO Last administered on 20:07; Start 11/24/17 at 09:00 Cefpodoxime Proxetil (Vantin) 200 mg BID PO Last administered on 11/27/17 20: 09; Start 11/27/17 at 09:00; Stop 12/03/17 at 23:59 Active Scripts Active Reported Prednisone 10 Mg Tablet 10 Mg PO DAILY 4 Days To be Started after completion of 20mg Daily order is complete. Prednisone 20 Mg Tablet 20 Mg PO DAILY 4 Days To be started after Completion of 30mg Daily order is complete Prednisone 10 Mg Tablet 30 Mg PO DAILY 4 Days Calmoseptine Ointment (Menthol/Zinc Oxide) 71 Gm Oint...g. 1 Jerome TP BID Duoneb 0.5-3(2.5) Mg/3 Ml (Albuterol/Ipratropium) 3 Ml Ampul.neb 3 Ml NEB Q4HRS W/A Mucinex (Guaifenesin) 600 Mg Tablet.er 600 Mg PO BID Pepcid (Famotidine) 20 Mg Tablet 20 Mg PO DAILY Albuterol Sulfate Neb Soln (Albuterol Sulfate) 2.5 Mg/3 Ml Vial.neb 2.5 Mg NEB PRN Q4HRS PRN Tylenol (Acetaminophen) 325 Mg Tablet 650 Mg PO PRN Q6HRS PRN I have reviewed the current psychotropics carefully including drug interactions. Risk benefit ratio favors no change other than as noted in my dictated progress note. Diagnosis: Problems: (1) Anxiety disorder (2) Major depressive disorder, recurrent episode (3) Dementia, vascular, with depression (4) Dementia, vascular, with delusions (5) Dementia in Alzheimer's disease with depression (6) Dementia in Alzheimer's disease with delusions (7) Dementia associated with alcoholism with behavioral disturbance DEMETRIUS JURADO MD Nov 27, 2017 21:04
[2017-11-28] MEDS: ACETAMINOPHEN 325 MG TABLET PO PRN (03:19)
[2017-11-28] MEDS: IPRATRPIUM/ALBUTEROL 0.5/2.5MG 3 ML NEBU. NEB SCH ×5 (05:29→21:20)
[2017-11-28 06:04] VITALS: BP 112/66
[2017-11-28] MEDS: LACTOBACILLUS RHAMNOSUS GG 1 CAPSULE. PO SCH ×2 (08:12→20:16)
[2017-11-28] MEDS: ASCORBIC ACID 500 MG TABLET PO SCH (08:12)
[2017-11-28] MEDS: NICOTINE 21MG PATCH. TD SCH (08:12)
[2017-11-28] MEDS: CEFPODOXIME PROXETIL 100 MG TABLET PO SCH ×2 (08:13→20:17)
[2017-11-28] MEDS: FAMOTIDINE 20 MG TABLET PO SCH (08:13)
[2017-11-28] MEDS: PRENATAL MULTIVITAMIN TABLET. PO SCH (08:13)
[2017-11-28] MEDS: ZINC SULFATE 220 MG CAPSULE. PO SCH (08:13)
[2017-11-28] MEDS: buPROPion XL 300 MG TAB.ER.24H. PO SCH (08:16)
[2017-11-28] MEDS: CLOTRIMAZOLE/BETAMETH 1%-0.05% TOPICAL CREAM 15GM TUBE. TP SCH ×2 (08:16→20:19)
[2017-11-28] MEDS: MENTHOL/ZINC OXIDE TOPICAL OINTMENT 113GM JAR. TP SCH ×2 (08:16→20:19)
--- NOTE | 2017-11-28 10:17 | RAD ---
Indication: Fall. Pain in the hip. Technique: 2 views of the left hip joint Comparison: None Findings: No acute fracture or dislocation. No osteoarthritis of the hip joint. Peripheral vascular disease. SI joints within normal limits. Impression: No acute findings.
[2017-11-28 16:09] VITALS: BP 122/67
[2017-11-28] MEDS: MIRTAZAPINE 7.5 MG TABLET. PO SCH (20:17)
[2017-11-28] MEDS: ENOXAPARIN 40 MG/0.4 ML DISP.SYRIN. SQ SCH (20:17)
--- NOTE | 2017-11-28 21:00 | PDOC ---
Exam Note: Ryan Note: Please also refer to the separate dictated note~for this date of service dictated separately.~Patient seen individually. Discussed the patient with Nursing staff reviewed the chart.~Reviewed interim history and current functioning. Reviewed vital signs,~Labs/ Radiology~and current medications noted below. Continue current treatment with the changes noted in the dictated addendum note Assessment: Vital Signs: Vital Signs Date Time Temp Pulse Resp B/P (MAP) Pulse Ox O2 Delivery O2 Flow Rate FiO2 11/28/17 16:11 95 Nasal Cannula 2.5 11/28/17 16:09 98.5 118 18 122/67 (85) I&O Intake and Output 11/28/17 07:00 Intake Total 1400 ml Balance 1400 ml Intake Oral 1400 ml # Bowel Movements 4 Current Medications: Meds: Current Medications Acetaminophen (Tylenol) 650 mg PRN Q6HRS PRN PO PAIN / TEMP Last administered on 11/28/17at 03:19; Start 11/19/17 at 12:45 Multi-Ingredient Ointment (Analgesic [place]) 1 jerome PRN QID PRN TP MUSCLE PAIN; Start 11/19/17 at 12:45 Al Hydroxide/Mg Hydroxide (Mylanta Plus Xs) 15 ml PRN AFTMEALHC PRN PO DYSPEPSIA; Start 11/19/17 at 12:45 Magnesium Hydroxide (Milk Of Magnesia) 2,400 mg PRN QHS PRN PO CONSTIPATION; Start 11/19/17 at 12:45 Nicotine (Nicoderm Cq 21mg) 1 patch DAILY TD Last administered on 11/28/17at 08: 12; Start 11/19/17 at 13:30 Acetaminophen (Tylenol) 650 mg PRN Q6HRS PRN PO PAIN / TEMP; Start 11/19/17 at 13:00; Stop 11/19/17 at 13:11; Status DC Albuterol Sulfate (Ventolin) 2.5 mg PRN Q4HRS PRN NEB SHORTNESS OF BREATH; Start 11/19/17 at 13:00 Famotidine (Pepcid) 20 mg DAILY PO Last administered on 11/28/17at 08:13; Start 11/20/17 at 09:00 Guaifenesin (Mucinex Er) 600 mg BID PO Last administered on 11/28/17at 20:16; Start 11/19/17 at 21:00 Albuterol/ Ipratropium (Duoneb) 3 ml Q4HRS W/A NEB Last administered on at 16:11; Start 11/19/17 at 14:00 Calamine/Phenol (Calmoseptine) 1 jerome BID TP ; Start 11/19/17 at 21:00; Stop at 21:00; Status DC Prednisone (Prednisone) 10 mg DAILY PO ; Start 11/20/17 at 09:00; Stop 11/20/17 at 09:00; Status DC Prednisone (Prednisone) 30 mg DAILY PO ; Start 11/20/17 at 09:00; Stop 11/20/17 at 09:00; Status DC Prednisone (Prednisone) 10 mg Taper DAILY PO Last administered on 11/27/17at 07: 45; Start 11/20/17 at 09:00; Stop 11/28/17 at 08:59; Status DC Influenza Virus Vaccine Quadrival (Fluarix Quad Syringe) 0.5 ml ONCE ONCE VAX IM ; Start 11/19/17 at 13:30; Stop 11/19/17 at 17:52; Status DC Calamine/Phenol (Calmoseptine) 1 jerome BID TP Last administered on 11/28/17at 20: 19; Start 11/19/17 at 21:00 Enoxaparin Sodium (Lovenox) 40 mg Q24H SQ Last administered on 11/28/17at 20:17 ; Start 11/19/17 at 21:00 Influenza Virus Vaccine Quadrival (Fluarix Quad Syringe) 0.5 ml ONCE ONCE VAX IM Last administered on 11/20/17at 18:43; Start 11/20/17 at 08:00; Stop 11/20/17 at 08:01; Status DC Betamethasone/ Clotrimazole (Lotrisone) 1 jerome BID TP Last administered on at 20:19; Start 11/20/17 at 21:00 Prenat Multivit/ [place]/Iron/Folic Ac (Multivitamin ) 1 tab DAILY PO Last administered on 11/28/17at 08:13; Start 11/21/17 at 09:00 Ascorbic Acid (Vitamin C) 500 mg DAILY PO Last administered on 11/28/17at 08:12 ; Start 3/19/18 at 09:00 Zinc Sulfate (Orazinc) 220 mg DAILY PO Last administered on 11/28/17at 08:13; Start 11/21/17 at 09:00 Bupropion HCl (Wellbutrin Xl) 150 mg DAILY PO Last administered on 11/22/17at 11 :01; Start 11/21/17 at 13:15; Stop 11/22/17 at 18:19; Status DC Mirtazapine (Remeron) 7.5 mg QHS PO Last administered on 11/28/17at 20:17; Start 11/21/17 at 21:00 Bupropion HCl (Wellbutrin Xl) 300 mg DAILY PO Last administered on 11/27/17at 07 :44; Start 11/23/17 at 09:00; Stop 11/27/17 at 22:04; Status DC Vitamin A/Vitamin D (Vitamin A & D Ointment) 1 jerome PRN Q1HR PRN TP SKIN PROTECTION Last administered on 11/27/17at 07:48; Start 11/23/17 at 11:30 Ceftriaxone Sodium (Rocephin Im) 1 gm DAILY IM Last administered on 11/26/17at 07:56; Start 11/24/17 at 09:00; Stop 11/27/17 at 00:00; Status DC Lactobacillus Rhamnosus (Culturelle) 1 cap BID PO Last administered on at 20:16; Start 11/24/17 at 09:00 Cefpodoxime Proxetil (Vantin) 200 mg BID PO Last administered on 11/28/17at 20: 17; Start 11/27/17 at 09:00; Stop 12/03/17 at 23:59 Bupropion HCl (Wellbutrin Xl) 450 mg DAILY PO Last administered on 11/28/17at 08 :16; Start 11/28/17 at 09:00 Active Scripts Active Reported Prednisone 10 Mg Tablet 10 Mg PO DAILY 4 Days To be Started after completion of 20mg Daily order is complete. Prednisone 20 Mg Tablet 20 Mg PO DAILY 4 Days To be started after Completion of 30mg Daily order is complete Prednisone 10 Mg Tablet 30 Mg PO DAILY 4 Days Calmoseptine Ointment (Menthol/Zinc Oxide) 71 Gm Oint...g. 1 Jerome TP BID Duoneb 0.5-3(2.5) Mg/3 Ml (Albuterol/Ipratropium) 3 Ml Ampul.neb 3 Ml NEB Q4HRS W/A Mucinex (Guaifenesin) 600 Mg Tablet.er 600 Mg PO BID Pepcid (Famotidine) 20 Mg Tablet 20 Mg PO DAILY Albuterol Sulfate Neb Soln (Albuterol Sulfate) 2.5 Mg/3 Ml Vial.neb 2.5 Mg NEB PRN Q4HRS PRN Tylenol (Acetaminophen) 325 Mg Tablet 650 Mg PO PRN Q6HRS PRN I have reviewed the current psychotropics carefully including drug interactions. Risk benefit ratio favors no change other than as noted in my dictated progress note. Diagnosis: Problems: (1) Anxiety disorder (2) Major depressive disorder, recurrent episode (3) Dementia, vascular, with depression (4) Dementia, vascular, with delusions (5) Dementia in Alzheimer's disease with depression (6) Dementia in Alzheimer's disease with delusions (7) Dementia associated with alcoholism with behavioral disturbance DEMETRIUS JURADO MD Nov 28, 2017 21:00
--- NOTE | 2017-11-28 22:48 | PN ---
DATE: 11/26/2017 This is a late entry for 11/26/2017 and covers elements not covered in my initial note of 11/26/2017. I met with the patient the evening of 11/26/2017. Overall, the patient remains somewhat withdrawn, depressed, but better than before. More than this, she is having medical including the lung mass and I will defer to Dr. Encinas. REVIEW OF SYSTEMS: Ambulation impaired with walker. No CV, , GI system symptoms on review. She remains on O2 supplements. MENTAL STATUS EXAM: Oriented reasonably to herself and situation. Speech has some latency, coherent. Abstraction fair, computation impaired, language function intact, attention span short. Mood and affect remain somewhat depressed, withdrawn. LABORATORY DATA: Reviewed. IMPRESSION: Major depressive disorder with psychotic features. Rest unchanged from initial note. PLAN: Continue psychotropics as mentioned in my initial note. Adjust as indicated. MAN Mohsen JURADO MD DR: OMAR/denny JOB#: [id number] / [id number]
--- NOTE | 2017-11-28 23:46 | PN ---
DATE: 11/27/2017 PSYCHIATRIC PROGRESS NOTE This is a late entry of 11/27/2017 covers elements not covered in my initial note of 11/27/2017. I met with the patient in the evening of 11/27/2017. Overall, the patient is withdrawn, depressed, but compliant, cooperative, reasonably oriented. I met with her in her room. REVIEW OF SYSTEMS: Positive for impaired ambulation. Some shortness of breath and she remains on O2 supplements. No CV, , eye, ENT system symptoms on review. MENTAL STATUS EXAM: Reasonably oriented. Speech is coherent, has some latency. Abstraction fair, computation impaired, language function intact, attention span short. Mood and affect still depressed, but showing improvement. No suicidal or homicidal ideation. LABORATORY DATA: Labs reviewed. IMPRESSION: Major depressive disorder with psychotic features in partial remission. Rest unchanged. PLAN: Increase Wellbutrin-XL to 450 mg p.o. a.m. Continue Remeron 7.5 mg at bedtime. Adjust further as clinically indicated. DEMETRIUS JURADO MD DR: OMAR/denny JOB#: [id number] / [id number]
[2017-11-29] MEDS: IPRATRPIUM/ALBUTEROL 0.5/2.5MG 3 ML NEBU. NEB SCH ×4 (05:36→22:36)
[2017-11-29 06:07] VITALS: BP 128/64
[2017-11-29] MEDS: ASCORBIC ACID 500 MG TABLET PO SCH (07:27)
[2017-11-29] MEDS: CEFPODOXIME PROXETIL 100 MG TABLET PO SCH ×2 (07:27→19:51)
[2017-11-29] MEDS: PRENATAL MULTIVITAMIN TABLET. PO SCH (07:28)
[2017-11-29] MEDS: LACTOBACILLUS RHAMNOSUS GG 1 CAPSULE. PO SCH ×2 (07:28→19:51)
[2017-11-29] MEDS: ZINC SULFATE 220 MG CAPSULE. PO SCH (07:28)
[2017-11-29] MEDS: NICOTINE 21MG PATCH. TD SCH (07:28)
[2017-11-29] MEDS: buPROPion XL 300 MG TAB.ER.24H. PO SCH (07:28)
[2017-11-29] MEDS: FAMOTIDINE 20 MG TABLET PO SCH (07:28)
[2017-11-29] MEDS: VITS A & D/LANOLIN TOPICAL OINTMENT 56GM TUBE. TP PRN (07:28)
[2017-11-29] MEDS: MENTHOL/ZINC OXIDE TOPICAL OINTMENT 113GM JAR. TP SCH ×2 (07:29→19:50)
[2017-11-29] MEDS: CLOTRIMAZOLE/BETAMETH 1%-0.05% TOPICAL CREAM 15GM TUBE. TP SCH ×2 (07:29→19:50)
[2017-11-29 16:12] VITALS: BP 102/51
[2017-11-29] MEDS: MIRTAZAPINE 7.5 MG TABLET. PO SCH (19:51)
[2017-11-29] MEDS: ENOXAPARIN 40 MG/0.4 ML DISP.SYRIN. SQ SCH (19:53)
--- NOTE | 2017-11-29 20:30 | PN ---
DATE: 11/28/2017 PSYCHIATRIC PROGRESS NOTE This is a late entry of 11/28/2017 covers elements not covered in my initial note of 11/28/2017. SUBJECTIVE: The patient slept 6-1/2 hours previous evening, still somewhat depressed, spending time in the day room. She fell morning of 11/28/2017. No injury noted. X-ray hip was negative. REVIEW OF SYSTEMS: Ambulation impaired, in wheelchair. No CV, , pulmonary, eye, ENT system symptoms on review. MENTAL STATUS EXAMINATION: Oriented to herself and situation. Speech has some latency, coherent. Abstraction fair, computation impaired, language function intact, attention span short. Mood and affect remain somewhat depressed, but showing improvement. LABORATORY DATA: Labs reviewed. IMPRESSION: Major depressive disorder with psychotic features, in partial remission. PLAN: Increase Wellbutrin-XL to 450 mg a day and Remeron 7.5 mg at bedtime. Rest unchanged. DEMETRIUS JURADO MD DR: OMAR/denny JOB#: [id number] / [id number]
--- NOTE | 2017-11-29 20:53 | PDOC ---
Exam Note: Ryan Note: Please also refer to the separate dictated note~for this date of service dictated separately.~Patient seen individually. Discussed the patient with Nursing staff reviewed the chart.~Reviewed interim history and current functioning. Reviewed vital signs,~Labs/ Radiology~and current medications noted below. Continue current treatment with the changes noted in the dictated addendum note Assessment: Vital Signs: Vital Signs Date Time Temp Pulse Resp B/P (MAP) Pulse Ox O2 Delivery O2 Flow Rate FiO2 11/29/17 16:12 98.6 119 18 102/51 (68) 93 High Flow Nasal Cannula 4.0 I&O Intake and Output 11/29/17 07:00 Intake Total 2160 ml Balance 2160 ml Intake Oral 2160 ml # Bowel Movements 1 Current Medications: Meds: Current Medications Acetaminophen (Tylenol) 650 mg PRN Q6HRS PRN PO PAIN / TEMP Last administered on 11/28/17at 03:19; Start 11/19/17 at 12:45 Multi-Ingredient Ointment (Analgesic [place]) 1 jerome PRN QID PRN TP MUSCLE PAIN; Start 11/19/17 at 12:45 Al Hydroxide/Mg Hydroxide (Mylanta Plus Xs) 15 ml PRN AFTMEALHC PRN PO DYSPEPSIA; Start 11/19/17 at 12:45 Magnesium Hydroxide (Milk Of Magnesia) 2,400 mg PRN QHS PRN PO CONSTIPATION; Start 11/19/17 at 12:45 Nicotine (Nicoderm Cq 21mg) 1 patch DAILY TD Last administered on 11/29/17at 07: 28; Start 11/19/17 at 13:30 Acetaminophen (Tylenol) 650 mg PRN Q6HRS PRN PO PAIN / TEMP; Start 11/19/17 at 13:00; Stop 11/19/17 at 13:11; Status DC Albuterol Sulfate (Ventolin) 2.5 mg PRN Q4HRS PRN NEB SHORTNESS OF BREATH; Start 11/19/17 at 13:00 Famotidine (Pepcid) 20 mg DAILY PO Last administered on 11/29/17at 07:28; Start 11/20/17 at 09:00 Guaifenesin (Mucinex Er) 600 mg BID PO Last administered on 11/29/17at 19:51; Start 11/19/17 at 21:00 Albuterol/ Ipratropium (Duoneb) 3 ml Q4HRS W/A NEB Last administered on at 15:32; Start 11/19/17 at 14:00 Calamine/Phenol (Calmoseptine) 1 jerome BID TP ; Start 11/19/17 at 21:00; Stop at 21:00; Status DC Prednisone (Prednisone) 10 mg DAILY PO ; Start 11/20/17 at 09:00; Stop 11/20/17 at 09:00; Status DC Prednisone (Prednisone) 30 mg DAILY PO ; Start 11/20/17 at 09:00; Stop 11/20/17 at 09:00; Status DC Prednisone (Prednisone) 10 mg Taper DAILY PO Last administered on 11/27/17at 07: 45; Start 11/20/17 at 09:00; Stop 11/28/17 at 08:59; Status DC Influenza Virus Vaccine Quadrival (Fluarix Quad Syringe) 0.5 ml ONCE ONCE VAX IM ; Start 11/19/17 at 13:30; Stop 11/19/17 at 17:52; Status DC Calamine/Phenol (Calmoseptine) 1 jerome BID TP Last administered on 11/29/17at 07: 29; Start 11/19/17 at 21:00 Enoxaparin Sodium (Lovenox) 40 mg Q24H SQ Last administered on 11/29/17at 19:53 ; Start 11/19/17 at 21:00 Influenza Virus Vaccine Quadrival (Fluarix Quad Syringe) 0.5 ml ONCE ONCE VAX IM Last administered on 11/20/17at 18:43; Start 11/20/17 at 08:00; Stop 11/20/17 at 08:01; Status DC Betamethasone/ Clotrimazole (Lotrisone) 1 jerome BID TP Last administered on at 19:50; Start 11/20/17 at 21:00 Prenat Multivit/ [place]/Iron/Folic Ac (Multivitamin ) 1 tab DAILY PO Last administered on 11/29/17at 07:28; Start 11/21/17 at 09:00 Ascorbic Acid (Vitamin C) 500 mg DAILY PO Last administered on 11/29/17at 07:27 ; Start 11/21/17 at 09:00 Zinc Sulfate (Orazinc) 220 mg DAILY PO Last administered on 11/29/17 07:28; Start 11/21/17 at 09:00 Bupropion HCl (Wellbutrin Xl) 150 mg DAILY PO Last administered on 11/22/17 11 :01; Start 11/21/17 at 13:15; Stop 11/22/17 at 18:19; Status DC Mirtazapine (Remeron) 7.5 mg QHS PO Last administered on 11/29/17 19:51; Start 11/21/17 at 21:00 Bupropion HCl (Wellbutrin Xl) 300 mg DAILY PO Last administered on 11/27/17 07 :44; Start 11/23/17 at 09:00; Stop 11/27/17 at 22:04; Status DC Vitamin A/Vitamin D (Vitamin A & D Ointment) 1 jerome PRN Q1HR PRN TP SKIN PROTECTION Last administered on 11/29/17 07:28; Start 11/23/17 at 11:30 Ceftriaxone Sodium (Rocephin Im) 1 gm DAILY IM Last administered on 11/26/17at 07:56; Start 11/24/17 at 09:00; Stop 11/27/17 at 00:00; Status DC Lactobacillus Rhamnosus (Culturelle) 1 cap BID PO Last administered on 19:51; Start 11/24/17 at 09:00 Cefpodoxime Proxetil (Vantin) 200 mg BID PO Last administered on 11/29/17 19: 51; Start 11/27/17 at 09:00; Stop 12/03/17 at 23:59 Bupropion HCl (Wellbutrin Xl) 450 mg DAILY PO Last administered on 11/29/17at 07 :28; Start 11/28/17 at 09:00 Active Scripts Active Reported Prednisone 10 Mg Tablet 10 Mg PO DAILY 4 Days To be Started after completion of 20mg Daily order is complete. Prednisone 20 Mg Tablet 20 Mg PO DAILY 4 Days To be started after Completion of 30mg Daily order is complete Prednisone 10 Mg Tablet 30 Mg PO DAILY 4 Days Calmoseptine Ointment (Menthol/Zinc Oxide) 71 Gm Oint...g. 1 Jerome TP BID Duoneb 0.5-3(2.5) Mg/3 Ml (Albuterol/Ipratropium) 3 Ml Ampul.neb 3 Ml NEB Q4HRS W/A Mucinex (Guaifenesin) 600 Mg Tablet.er 600 Mg PO BID Pepcid (Famotidine) 20 Mg Tablet 20 Mg PO DAILY Albuterol Sulfate Neb Soln (Albuterol Sulfate) 2.5 Mg/3 Ml Vial.neb 2.5 Mg NEB PRN Q4HRS PRN Tylenol (Acetaminophen) 325 Mg Tablet 650 Mg PO PRN Q6HRS PRN I have reviewed the current psychotropics carefully including drug interactions. Risk benefit ratio favors no change other than as noted in my dictated progress note. Diagnosis: Problems: (1) Anxiety disorder (2) Major depressive disorder, recurrent episode (3) Dementia, vascular, with depression (4) Dementia, vascular, with delusions (5) Dementia in Alzheimer's disease with depression (6) Dementia in Alzheimer's disease with delusions (7) Dementia associated with alcoholism with behavioral disturbance DEMETRIUS JURADO MD Nov 29, 2017 20:53
[2017-11-30] MEDS: IPRATRPIUM/ALBUTEROL 0.5/2.5MG 3 ML NEBU. NEB SCH ×5 (05:55→22:37)
[2017-11-30 06:05] VITALS: BP 108/64
[2017-11-30] MEDS: CEFPODOXIME PROXETIL 100 MG TABLET PO SCH ×2 (08:11→19:43)
[2017-11-30] MEDS: ZINC SULFATE 220 MG CAPSULE. PO SCH (08:12)
[2017-11-30] MEDS: LACTOBACILLUS RHAMNOSUS GG 1 CAPSULE. PO SCH ×2 (08:12→19:43)
[2017-11-30] MEDS: NICOTINE 21MG PATCH. TD SCH (08:12)
[2017-11-30] MEDS: buPROPion XL 300 MG TAB.ER.24H. PO SCH (08:12)
[2017-11-30] MEDS: PRENATAL MULTIVITAMIN TABLET. PO SCH (08:12)
[2017-11-30] MEDS: FAMOTIDINE 20 MG TABLET PO SCH (08:12)
[2017-11-30] MEDS: ASCORBIC ACID 500 MG TABLET PO SCH (08:12)
[2017-11-30] MEDS: CLOTRIMAZOLE/BETAMETH 1%-0.05% TOPICAL CREAM 15GM TUBE. TP SCH ×2 (08:13→19:44)
[2017-11-30] MEDS: MENTHOL/ZINC OXIDE TOPICAL OINTMENT 113GM JAR. TP SCH ×2 (08:13→19:43)
[2017-11-30 09:07] LABS: BASO # 0.1 x10^3/uL (0.0-0.2); BASO % 1 % (0-3); EOS # 0.1 x10^3/uL (0.0-0.7); EOS % 1 % (0-3); HEMATOCRIT 32.4 % (36.0-47.0); LYMPH # 1.2 x10^3/uL (1.0-4.8); LYMPH % 15 % (24-48); MEAN CORPUSCULAR HEMOGLOBIN 30 pg (25-35); MEAN CORPUSCULAR HGB CONC 34 g/dL (31-37); MEAN CORPUSCULAR VOLUME 89 fL (79-100); MONO # 0.4 x10^3/uL (0.0-1.1); MONO % 4 % (0-9); NEUT # 6.5 x10^3uL (1.8-7.7); NEUT % 79 % (31-73); PLATELET COUNT 196 x10^3/uL (140-400); RED BLOOD COUNT 3.64 x10^6/uL (3.50-5.40); RED CELL DISTRIBUTION WIDTH 15.4 % (11.5-14.5); WHITE BLOOD COUNT 8.3 x10^3/uL (4.0-11.0)
[2017-11-30 09:34] LABS: ALBUMIN 2.6 g/dL (3.4-5.0); ALBUMIN/GLOBULIN RATIO 0.7 (1.0-1.7); CALCIUM 8.9 mg/dL (8.5-10.1); CREATININE 0.7 mg/dL (0.6-1.0); GFR 83.5; POTASSIUM 3.6 mmol/L (3.5-5.1); TOTAL BILIRUBIN 0.5 mg/dL (0.2-1.0); TOTAL PROTEIN 6.5 g/dL (6.4-8.2)
[2017-11-30] MEDS: ACETAMINOPHEN 325 MG TABLET PO PRN ×2 (10:21→17:16)
[2017-11-30 16:31] VITALS: BP 122/68
[2017-11-30] MEDS: ENOXAPARIN 40 MG/0.4 ML DISP.SYRIN. SQ SCH (19:43)
[2017-11-30] MEDS: MIRTAZAPINE 7.5 MG TABLET. PO SCH (19:43)
--- NOTE | 2017-11-30 21:03 | PDOC ---
Exam Note: Ryan Note: Please also refer to the separate dictated note~for this date of service dictated separately.~Patient seen individually. Discussed the patient with Nursing staff reviewed the chart.~Reviewed interim history and current functioning. Reviewed vital signs,~Labs/ Radiology~and current medications noted below. Continue current treatment with the changes noted in the dictated addendum note Assessment: Vital Signs: Vital Signs Date Time Temp Pulse Resp B/P (MAP) Pulse Ox O2 Delivery O2 Flow Rate FiO2 11/30/17 16:31 97.2 99 18 122/68 (86) 94 2.5 11/30/17 15:44 Nasal Cannula I&O Intake and Output 11/30/17 07:00 Intake Total 960 ml Balance 960 ml Intake Oral 960 ml Labs: Laboratory Tests Test 11/30/17 08:50 White Blood Count 8.3 x10^3/uL (4.0-11.0) Red Blood Count 3.64 x10^6/uL (3.50-5.40) Hemoglobin 11.0 g/dL (12.0-15.5) L Hematocrit 32.4 % (36.0-47.0) L Mean Corpuscular Volume 89 fL (79-100) Mean Corpuscular Hemoglobin 30 pg (25-35) Mean Corpuscular Hemoglobin Concent 34 g/dL (31-37) Red Cell Distribution Width 15.4 % (11.5-14.5) H Platelet Count 196 x10^3/uL (140-400) Neutrophils (%) (Auto) 79 % (31-73) H Lymphocytes (%) (Auto) 15 % (24-48) L Monocytes (%) (Auto) 4 % (0-9) Eosinophils (%) (Auto) 1 % (0-3) Basophils (%) (Auto) 1 % (0-3) Neutrophils # (Auto) 6.5 x10^3uL (1.8-7.7) Lymphocytes # (Auto) 1.2 x10^3/uL (1.0-4.8) Monocytes # (Auto) 0.4 x10^3/uL (0.0-1.1) Eosinophils # (Auto) 0.1 x10^3/uL (0.0-0.7) Basophils # (Auto) 0.1 x10^3/uL (0.0-0.2) Sodium Level 131 mmol/L (136-145) L Potassium Level 3.6 mmol/L (3.5-5.1) Chloride Level 92 mmol/L (98-107) L Carbon Dioxide Level 33 mmol/L (21-32) H Anion Gap 6 (6-14) Blood Urea Nitrogen 11 mg/dL (7-20) Creatinine 0.7 mg/dL (0.6-1.0) Estimated GFR (Cockcroft-Gault) 83.5 BUN/Creatinine Ratio 16 (6-20) Glucose Level 162 mg/dL (70-99) H Calcium Level 8.9 mg/dL (8.5-10.1) Magnesium Level 2.0 mg/dL (1.8-2.4) Total Bilirubin 0.5 mg/dL (0.2-1.0) Aspartate Amino Transferase (AST) 24 U/L (15-37) Alanine Aminotransferase (ALT) 49 U/L (14-59) Alkaline Phosphatase 111 U/L (46-116) Total Protein 6.5 g/dL (6.4-8.2) Albumin 2.6 g/dL (3.4-5.0) L Albumin/Globulin Ratio 0.7 (1.0-1.7) L Current Medications: Meds: Current Medications Acetaminophen (Tylenol) 650 mg PRN Q6HRS PRN PO PAIN / TEMP Last administered on 11/30/17at 17:16; Start 11/19/17 at 12:45 Multi-Ingredient Ointment (Analgesic [place]) 1 jerome PRN QID PRN TP MUSCLE PAIN; Start 11/19/17 at 12:45 Al Hydroxide/Mg Hydroxide (Mylanta Plus Xs) 15 ml PRN AFTMEALHC PRN PO DYSPEPSIA; Start 11/19/17 at 12:45 Magnesium Hydroxide (Milk Of Magnesia) 2,400 mg PRN QHS PRN PO CONSTIPATION; Start 11/19/17 at 12:45 Nicotine (Nicoderm Cq 21mg) 1 patch DAILY TD Last administered on 11/30/17at 08: 12; Start 11/19/17 at 13:30 Acetaminophen (Tylenol) 650 mg PRN Q6HRS PRN PO PAIN / TEMP; Start 11/19/17 at 13:00; Stop 11/19/17 at 13:11; Status DC Albuterol Sulfate (Ventolin) 2.5 mg PRN Q4HRS PRN NEB SHORTNESS OF BREATH; Start 11/19/17 at 13:00 Famotidine (Pepcid) 20 mg DAILY PO Last administered on 11/30/17at 08:12; Start 11/20/17 at 09:00 Guaifenesin (Mucinex Er) 600 mg BID PO Last administered on 11/30/17at 19:43; Start 11/19/17 at 21:00 Albuterol/ Ipratropium (Duoneb) 3 ml Q4HRS W/A NEB Last administered on at 15:44; Start 11/19/17 at 14:00 Calamine/Phenol (Calmoseptine) 1 jerome BID TP ; Start 11/19/17 at 21:00; Stop at 21:00; Status DC Prednisone (Prednisone) 10 mg DAILY PO ; Start 11/20/17 at 09:00; Stop 11/20/17 at 09:00; Status DC Prednisone (Prednisone) 30 mg DAILY PO ; Start 11/20/17 at 09:00; Stop 11/20/17 at 09:00; Status DC Prednisone (Prednisone) 10 mg Taper DAILY PO Last administered on 11/27/17at 07: 45; Start 11/20/17 at 09:00; Stop 11/28/17 at 08:59; Status DC Influenza Virus Vaccine Quadrival (Fluarix Quad 9698-9264 Syringe) 0.5 ml ONCE ONCE VAX IM ; Start 11/19/17 at 13:30; Stop 11/19/17 at 17:52; Status DC Calamine/Phenol (Calmoseptine) 1 jerome BID TP Last administered on 11/30/17at 08: 13; Start 11/19/17 at 21:00 Enoxaparin Sodium (Lovenox) 40 mg Q24H SQ Last administered on 11/30/17at 19:43 ; Start 11/19/17 at 21:00 Influenza Virus Vaccine Quadrival (Fluarix Quad [id number] Syringe) 0.5 ml ONCE ONCE VAX IM Last administered on 11/20/17at 18:43; Start 11/20/17 at 08:00; Stop 11/20/17 at 08:01; Status DC Betamethasone/ Clotrimazole (Lotrisone) 1 jerome BID TP Last administered on 19:44; Start 11/20/17 at 21:00 Prenat Multivit/ [place]/Iron/Folic Ac (Multivitamin ) 1 tab DAILY PO Last administered on 11/30/17 08:12; Start 11/21/17 at 09:00 Ascorbic Acid (Vitamin C) 500 mg DAILY PO Last administered on 11/30/17 08:12 ; Start 11/21/17 at 09:00 Zinc Sulfate (Orazinc) 220 mg DAILY PO Last administered on 11/30/17 08:12; Start 11/21/17 at 09:00 Bupropion HCl (Wellbutrin Xl) 150 mg DAILY PO Last administered on 11/22/17 11 :01; Start 11/21/17 at 13:15; Stop 11/22/17 at 18:19; Status DC Mirtazapine (Remeron) 7.5 mg QHS PO Last administered on 11/30/17 19:43; Start 11/21/17 at 21:00 Bupropion HCl (Wellbutrin Xl) 300 mg DAILY PO Last administered on 11/27/17 07 :44; Start 11/23/17 at 09:00; Stop 11/27/17 at 22:04; Status DC Vitamin A/Vitamin D (Vitamin A & D Ointment) 1 jerome PRN Q1HR PRN TP SKIN PROTECTION Last administered on 11/29/17 07:28; Start 11/23/17 at 11:30 Ceftriaxone Sodium (Rocephin Im) 1 gm DAILY IM Last administered on 11/26/17 07:56; Start 11/24/17 at 09:00; Stop 11/27/17 at 00:00; Status DC Lactobacillus Rhamnosus (Culturelle) 1 cap BID PO Last administered on 19:43; Start 11/24/17 at 09:00 Cefpodoxime Proxetil (Vantin) 200 mg BID PO Last administered on 11/30/17 19: 43; Start 11/27/17 at 09:00; Stop 12/03/17 at 23:59 Bupropion HCl (Wellbutrin Xl) 450 mg DAILY PO Last administered on 11/30/17 08 :12; Start 11/28/17 at 09:00 Active Scripts Active Reported Prednisone 10 Mg Tablet 10 Mg PO DAILY 4 Days To be Started after completion of 20mg Daily order is complete. Prednisone 20 Mg Tablet 20 Mg PO DAILY 4 Days To be started after Completion of 30mg Daily order is complete Prednisone 10 Mg Tablet 30 Mg PO DAILY 4 Days Calmoseptine Ointment (Menthol/Zinc Oxide) 71 Gm Oint...g. 1 Jerome TP BID Duoneb 0.5-3(2.5) Mg/3 Ml (Albuterol/Ipratropium) 3 Ml Ampul.neb 3 Ml NEB Q4HRS W/A Mucinex (Guaifenesin) 600 Mg Tablet.er 600 Mg PO BID Pepcid (Famotidine) 20 Mg Tablet 20 Mg PO DAILY Albuterol Sulfate Neb Soln (Albuterol Sulfate) 2.5 Mg/3 Ml Vial.neb 2.5 Mg NEB PRN Q4HRS PRN Tylenol (Acetaminophen) 325 Mg Tablet 650 Mg PO PRN Q6HRS PRN I have reviewed the current psychotropics carefully including drug interactions. Risk benefit ratio favors no change other than as noted in my dictated progress note. 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
--- NOTE | 2017-11-30 21:49 | PN ---
DATE: 11/29/2017 PSYCHIATRIC PROGRESS NOTE This is a late entry 11/29/2017 covers elements not covered in my initial note 11/29/2017. SUBJECTIVE: I met with the patient in the evening of 11/29/2017. The patient has been somewhat irritable, snarky at time, refused her oxygen, less tired nevertheless. REVIEW OF SYSTEMS: Positive for difficulty with breathing, remains on oxygen supplements, impaired ambulation in a wheelchair. No CV, , GI, eye system symptoms on review. MENTAL STATUS EXAM: Oriented to herself and situation. Speech has some latency, coherent. Abstraction fair, computation impaired, language function intact, attention span short. Mood and affect somewhat brighter, still tired at times. No active suicidal ideation. LABORATORY DATA: Reviewed. IMPRESSION: Major depressive disorder with psychotic features. Rest unchanged. PLAN: Continue current psychotropics, Wellbutrin has been increased to the maximum dosage 450 mg a day. Maintain Remeron 7.5 mg at bedtime. MAN Mohsen JURADO MD DR: OMAR/denny JOB#: [id number] / [id number]
[2017-12-01 05:45] VITALS: BP 125/70
[2017-12-01] MEDS: IPRATRPIUM/ALBUTEROL 0.5/2.5MG 3 ML NEBU. NEB SCH ×5 (05:51→21:18)
[2017-12-01] MEDS: ZINC SULFATE 220 MG CAPSULE. PO SCH (08:40)
[2017-12-01] MEDS: FAMOTIDINE 20 MG TABLET PO SCH (08:40)
[2017-12-01] MEDS: LACTOBACILLUS RHAMNOSUS GG 1 CAPSULE. PO SCH ×2 (08:40→19:31)
[2017-12-01] MEDS: PRENATAL MULTIVITAMIN TABLET. PO SCH (08:40)
[2017-12-01] MEDS: buPROPion XL 300 MG TAB.ER.24H. PO SCH (08:40)
[2017-12-01] MEDS: ASCORBIC ACID 500 MG TABLET PO SCH (08:40)
[2017-12-01] MEDS: NICOTINE 21MG PATCH. TD SCH (08:40)
[2017-12-01] MEDS: CEFPODOXIME PROXETIL 100 MG TABLET PO SCH ×2 (08:40→19:31)
[2017-12-01] MEDS: CLOTRIMAZOLE/BETAMETH 1%-0.05% TOPICAL CREAM 15GM TUBE. TP SCH ×2 (08:41→19:33)
[2017-12-01] MEDS: MENTHOL/ZINC OXIDE TOPICAL OINTMENT 113GM JAR. TP SCH ×2 (08:41→19:34)
[2017-12-01 16:03] VITALS: BP 149/77
[2017-12-01] MEDS: MIRTAZAPINE 7.5 MG TABLET. PO SCH (19:31)
[2017-12-01] MEDS: ENOXAPARIN 40 MG/0.4 ML DISP.SYRIN. SQ SCH (19:33)
--- NOTE | 2017-12-01 20:54 | PDOC ---
Exam Note: Ryan Note: Please also refer to the separate dictated note~for this date of service dictated separately.~Patient seen individually. Discussed the patient with Nursing staff reviewed the chart.~Reviewed interim history and current functioning. Reviewed vital signs,~Labs/ Radiology~and current medications noted below. Continue current treatment with the changes noted in the dictated addendum note Assessment: Vital Signs: Vital Signs Date Time Temp Pulse Resp B/P (MAP) Pulse Ox O2 Delivery O2 Flow Rate FiO2 12/01/17 16:31 97 Nasal Cannula 3.0 12/01/17 16:03 98.4 111 18 149/77 (101) I&O Intake and Output 12/01/17 07:00 Intake Total 1740 ml Balance 1740 ml Intake Oral 1740 ml # Bowel Movements 2 Current Medications: Meds: Current Medications Acetaminophen (Tylenol) 650 mg PRN Q6HRS PRN PO PAIN / TEMP Last administered on 11/30/17at 17:16; Start 11/19/17 at 12:45 Multi-Ingredient Ointment (Analgesic [place]) 1 jerome PRN QID PRN TP MUSCLE PAIN; Start 11/19/17 at 12:45 Al Hydroxide/Mg Hydroxide (Mylanta Plus Xs) 15 ml PRN AFTMEALHC PRN PO DYSPEPSIA; Start 11/19/17 at 12:45 Magnesium Hydroxide (Milk Of Magnesia) 2,400 mg PRN QHS PRN PO CONSTIPATION; Start 11/19/17 at 12:45 Nicotine (Nicoderm Cq 21mg) 1 patch DAILY TD Last administered on 12/01/17at 08: 40; Start 11/19/17 at 13:30 Acetaminophen (Tylenol) 650 mg PRN Q6HRS PRN PO PAIN / TEMP; Start 11/19/17 at 13:00; Stop 11/19/17 at 13:11; Status DC Albuterol Sulfate (Ventolin) 2.5 mg PRN Q4HRS PRN NEB SHORTNESS OF BREATH; Start 11/19/17 at 13:00 Famotidine (Pepcid) 20 mg DAILY PO Last administered on 12/01/17at 08:40; Start 11/20/17 at 09:00 Guaifenesin (Mucinex Er) 600 mg BID PO Last administered on 12/01/17at 19:31; Start 11/19/17 at 21:00 Albuterol/ Ipratropium (Duoneb) 3 ml Q4HRS W/A NEB Last administered on at 16:31; Start 11/19/17 at 14:00 Calamine/Phenol (Calmoseptine) 1 jerome BID TP ; Start 11/19/17 at 21:00; Stop at 21:00; Status DC Prednisone (Prednisone) 10 mg DAILY PO ; Start 11/20/17 at 09:00; Stop 11/20/17 at 09:00; Status DC Prednisone (Prednisone) 30 mg DAILY PO ; Start 11/20/17 at 09:00; Stop 11/20/17 at 09:00; Status DC Prednisone (Prednisone) 10 mg Taper DAILY PO Last administered on 11/27/17at 07: 45; Start 11/20/17 at 09:00; Stop 11/28/17 at 08:59; Status DC Influenza Virus Vaccine Quadrival (Fluarix Quad [id number] Syringe) 0.5 ml ONCE ONCE VAX IM ; Start 11/19/17 at 13:30; Stop 11/19/17 at 17:52; Status DC Calamine/Phenol (Calmoseptine) 1 jerome BID TP Last administered on 12/01/17at 19: 34; Start 11/19/17 at 21:00 Enoxaparin Sodium (Lovenox) 40 mg Q24H SQ Last administered on 12/01/17 19:33 ; Start 11/19/17 at 21:00 Influenza Virus Vaccine Quadrival (Fluarix Quad Syringe) 0.5 ml ONCE ONCE VAX IM Last administered on 11/20/17at 18:43; Start 11/20/17 at 08:00; Stop 11/20/17 at 08:01; Status DC Betamethasone/ Clotrimazole (Lotrisone) 1 jerome BID TP Last administered on 19:33; Start 11/20/17 at 21:00 Prenat Multivit/ Marine Specialist/Iron/Folic Ac (Multivitamin ) 1 tab DAILY PO Last administered on 12/01/17 08:40; Start 11/21/17 at 09:00 Ascorbic Acid (Vitamin C) 500 mg DAILY PO Last administered on 12/01/17at 08:40 ; Start 11/21/17 at 09:00 Zinc Sulfate (Orazinc) 220 mg DAILY PO Last administered on 12/01/17 08:40; Start 11/21/17 at 09:00 Bupropion HCl (Wellbutrin Xl) 150 mg DAILY PO Last administered on 11/22/17at 11 :01; Start 11/21/17 at 13:15; Stop 11/22/17 at 18:19; Status DC Mirtazapine (Remeron) 7.5 mg QHS PO Last administered on 12/01/17 19:31; Start 11/21/17 at 21:00 Bupropion HCl (Wellbutrin Xl) 300 mg DAILY PO Last administered on 11/27/17 07 :44; Start 11/23/17 at 09:00; Stop 11/27/17 at 22:04; Status DC Vitamin A/Vitamin D (Vitamin A & D Ointment) 1 jerome PRN Q1HR PRN TP SKIN PROTECTION Last administered on 11/29/17 07:28; Start 11/23/17 at 11:30 Ceftriaxone Sodium (Rocephin Im) 1 gm DAILY IM Last administered on 11/26/17at 07:56; Start 11/24/17 at 09:00; Stop 11/27/17 at 00:00; Status DC Lactobacillus Rhamnosus (Culturelle) 1 cap BID PO Last administered on 19:31; Start 11/24/17 at 09:00 Cefpodoxime Proxetil (Vantin) 200 mg BID PO Last administered on 12/01/17 19: 31; Start 11/27/17 at 09:00; Stop 12/03/17 at 23:59 Bupropion HCl (Wellbutrin Xl) 450 mg DAILY PO Last administered on 12/01/17at 08 :40; Start 11/28/17 at 09:00 Active Scripts Active Reported Prednisone 10 Mg Tablet 10 Mg PO DAILY 4 Days To be Started after completion of 20mg Daily order is complete. Prednisone 20 Mg Tablet 20 Mg PO DAILY 4 Days To be started after Completion of 30mg Daily order is complete Prednisone 10 Mg Tablet 30 Mg PO DAILY 4 Days Calmoseptine Ointment (Menthol/Zinc Oxide) 71 Gm Oint...g. 1 Jerome TP BID Duoneb 0.5-3(2.5) Mg/3 Ml (Albuterol/Ipratropium) 3 Ml Ampul.neb 3 Ml NEB Q4HRS W/A Mucinex (Guaifenesin) 600 Mg Tablet.er 600 Mg PO BID Pepcid (Famotidine) 20 Mg Tablet 20 Mg PO DAILY Albuterol Sulfate Neb Soln (Albuterol Sulfate) 2.5 Mg/3 Ml Vial.neb 2.5 Mg NEB PRN Q4HRS PRN Tylenol (Acetaminophen) 325 Mg Tablet 650 Mg PO PRN Q6HRS PRN I have reviewed the current psychotropics carefully including drug interactions. Risk benefit ratio favors no change other than as noted in my dictated progress note. Diagnosis: Problems: (1) Anxiety disorder (2) Major depressive disorder, recurrent episode (3) Dementia, vascular, with depression (4) Dementia, vascular, with delusions (5) Dementia in Alzheimer's disease with depression (6) Dementia in Alzheimer's disease with delusions (7) Dementia associated with alcoholism with behavioral disturbance DEMETRIUS JURADO MD Dec 01, 2017 20:53
[2017-12-02] MEDS ORDERED: ASCO500T3 PO (01:17)
[2017-12-02] MEDS ORDERED: CEFP200T PO (01:21)
[2017-12-02] MEDS ORDERED: CLOT15CR5 TP (01:24)
[2017-12-02] MEDS ORDERED: ENOX40DI SQ (01:25)
[2017-12-02] MEDS ORDERED: LACT1CAP21 PO (01:28)
[2017-12-02] MEDS ORDERED: MAGN400O7 PO (01:29)
[2017-12-02] MEDS ORDERED: MAG30ORA2 PO (01:30)
[2017-12-02] MEDS ORDERED: METH29OI TP (01:33)
[2017-12-02] MEDS ORDERED: MIRT7.5T8 PO (01:34)
[2017-12-02] MEDS ORDERED: NICO1PAT21 TD (01:36)
[2017-12-02] MEDS ORDERED: PREN1TAB13 PO (01:40)
[2017-12-02] MEDS ORDERED: VITS56.7 TP (01:42)
[2017-12-02] MEDS ORDERED: BUPR300T3 PO (01:43)
[2017-12-02] MEDS ORDERED: BUPR150T15 PO (01:44)
[2017-12-02] MEDS ORDERED: ZINC220T PO (01:47)
[2017-12-02] MEDS: IPRATRPIUM/ALBUTEROL 0.5/2.5MG 3 ML NEBU. NEB SCH ×3 (05:53→16:20)
[2017-12-02 06:12] VITALS: BP 109/62
[2017-12-02] MEDS: NICOTINE 21MG PATCH. TD SCH (07:40)
[2017-12-02] MEDS: ZINC SULFATE 220 MG CAPSULE. PO SCH (07:40)
[2017-12-02] MEDS: LACTOBACILLUS RHAMNOSUS GG 1 CAPSULE. PO SCH (07:41)
[2017-12-02] MEDS: PRENATAL MULTIVITAMIN TABLET. PO SCH (07:41)
[2017-12-02] MEDS: buPROPion XL 300 MG TAB.ER.24H. PO SCH (07:41)
[2017-12-02] MEDS: FAMOTIDINE 20 MG TABLET PO SCH (07:41)
[2017-12-02] MEDS: ASCORBIC ACID 500 MG TABLET PO SCH (07:41)
[2017-12-02] MEDS: CEFPODOXIME PROXETIL 100 MG TABLET PO SCH (07:41)
[2017-12-02] MEDS: MENTHOL/ZINC OXIDE TOPICAL OINTMENT 113GM JAR. TP SCH (07:45)
[2017-12-02] MEDS: CLOTRIMAZOLE/BETAMETH 1%-0.05% TOPICAL CREAM 15GM TUBE. TP SCH (07:45)
[2017-12-02 16:21] VITALS: BP 115/70
--- NOTE | 2017-12-02 17:34 | PDOC ---
Exam Note: Ryan Note: Please also refer to the separate dictated note~for this date of service dictated separately.~Patient seen individually. Discussed the patient with Nursing staff reviewed the chart.~Reviewed interim history and current functioning. Reviewed vital signs,~Labs/ Radiology~and current medications noted below. Continue current treatment with the changes noted in the dictated addendum note Assessment: Vital Signs: Vital Signs Date Time Temp Pulse Resp B/P (MAP) Pulse Ox O2 Delivery O2 Flow Rate FiO2 12/02/17 16:21 98.5 116 20 115/70 (85) 95 4.0 12/02/17 16:20 Nasal Cannula I&O Intake and Output 12/02/17 07:00 Intake Total 960 ml Balance 960 ml Intake Oral 960 ml # Bowel Movements 2 Current Medications: Meds: Current Medications Acetaminophen (Tylenol) 650 mg PRN Q6HRS PRN PO PAIN / TEMP Last administered on 11/30/17at 17:16; Start 11/19/17 at 12:45; Stop 12/02/17 at 16:52; Status DC Multi-Ingredient Ointment (Analgesic [place]) 1 jerome PRN QID PRN TP MUSCLE PAIN; Start 11/19/17 at 12:45; Stop 12/02/17 at 16:52; Status DC Al Hydroxide/Mg Hydroxide (Mylanta Plus Xs) 15 ml PRN AFTMEALHC PRN PO DYSPEPSIA; Start 11/19/17 at 12:45; Stop 12/02/17 at 16:52; Status DC Magnesium Hydroxide (Milk Of Magnesia) 2,400 mg PRN QHS PRN PO CONSTIPATION; Start 11/19/17 at 12:45; Stop 12/02/17 at 16:52; Status DC Nicotine (Nicoderm Cq 21mg) 1 patch DAILY TD Last administered on 12/02/17at 07: 40; Start 11/19/17 at 13:30; Stop 12/02/17 at 16:52; Status DC Acetaminophen (Tylenol) 650 mg PRN Q6HRS PRN PO PAIN / TEMP; Start 11/19/17 at 13:00; Stop 11/19/17 at 13:11; Status DC Albuterol Sulfate (Ventolin) 2.5 mg PRN Q4HRS PRN NEB SHORTNESS OF BREATH; Start 11/19/17 at 13:00; Stop 12/02/17 at 16:52; Status DC Famotidine (Pepcid) 20 mg DAILY PO Last administered on 12/02/17at 07:41; Start 11/20/17 at 09:00; Stop 12/02/17 at 16:52; Status DC Guaifenesin (Mucinex Er) 600 mg BID PO Last administered on 12/02/17at 07:40; Start 11/19/17 at 21:00; Stop 12/02/17 at 16:52; Status DC Albuterol/ Ipratropium (Duoneb) 3 ml Q4HRS W/A NEB Last administered on at 16:20; Start 11/19/17 at 14:00; Stop 12/02/17 at 16:52; Status DC Calamine/Phenol (Calmoseptine) 1 jerome BID TP ; Start 11/19/17 at 21:00; Stop at 21:00; Status DC Prednisone (Prednisone) 10 mg DAILY PO ; Start 11/20/17 at 09:00; Stop 11/20/17 at 09:00; Status DC Prednisone (Prednisone) 30 mg DAILY PO ; Start 11/20/17 at 09:00; Stop 11/20/17 at 09:00; Status DC Prednisone (Prednisone) 10 mg Taper DAILY PO Last administered on 11/27/17at 07: 45; Start 11/20/17 at 09:00; Stop 11/28/17 at 08:59; Status DC Influenza Virus Vaccine Quadrival (Fluarix Quad Syringe) 0.5 ml ONCE ONCE VAX IM ; Start 11/19/17 at 13:30; Stop 11/19/17 at 17:52; Status DC Calamine/Phenol (Calmoseptine) 1 jerome BID TP Last administered on 12/02/17at 07: 45; Start 11/19/17 at 21:00; Stop 12/02/17 at 16:52; Status DC Enoxaparin Sodium (Lovenox) 40 mg Q24H SQ Last administered on 12/01/17at 19:33 ; Start 11/19/17 at 21:00; Stop 12/02/17 at 16:52; Status DC Influenza Virus Vaccine Quadrival (Fluarix Quad [id number] Syringe) 0.5 ml ONCE ONCE VAX IM Last administered on 11/20/17at 18:43; Start 11/20/17 at 08:00; Stop 11/20/17 at 08:01; Status DC Betamethasone/ Clotrimazole (Lotrisone) 1 jerome BID TP Last administered on at 07:45; Start 11/20/17 at 21:00; Stop 12/02/17 at 16:52; Status DC Prenat Multivit/ [employer]ating Machine Operator/Iron/Folic Ac (Multivitamin ) 1 tab DAILY PO Last administered on 12/02/17at 07:41; Start 11/21/17 at 09:00; Stop 12/02/17 at 16:52; Status DC Ascorbic Acid (Vitamin C) 500 mg DAILY PO Last administered on 12/02/17at 07:41 ; Start 11/21/17 at 09:00; Stop 12/02/17 at 16:52; Status DC Zinc Sulfate (Orazinc) 220 mg DAILY PO Last administered on 12/02/17at 07:40; Start 11/21/17 at 09:00; Stop 12/02/17 at 16:52; Status DC Bupropion HCl (Wellbutrin Xl) 150 mg DAILY PO Last administered on 11/22/17at 11 :01; Start 11/21/17 at 13:15; Stop 11/22/17 at 18:19; Status DC Mirtazapine (Remeron) 7.5 mg QHS PO Last administered on 12/01/17at 19:31; Start 11/21/17 at 21:00; Stop 12/02/17 at 16:52; Status DC Bupropion HCl (Wellbutrin Xl) 300 mg DAILY PO Last administered on 11/27/17at 07 :44; Start 11/23/17 at 09:00; Stop 11/27/17 at 22:04; Status DC Vitamin A/Vitamin D (Vitamin A & D Ointment) 1 jerome PRN Q1HR PRN TP SKIN PROTECTION Last administered on 11/29/17at 07:28; Start 11/23/17 at 11:30; Stop 12/02/17 at 16:52; Status DC Ceftriaxone Sodium (Rocephin Im) 1 gm DAILY IM Last administered on 11/26/17at 07:56; Start 11/24/17 at 09:00; Stop 11/27/17 at 00:00; Status DC Lactobacillus Rhamnosus (Culturelle) 1 cap BID PO Last administered on at 07:41; Start 11/24/17 at 09:00; Stop 12/02/17 at 16:52; Status DC Cefpodoxime Proxetil (Vantin) 200 mg BID PO Last administered on 12/02/17at 07: 41; Start 11/27/17 at 09:00; Stop 12/02/17 at 16:52; Status DC Bupropion HCl (Wellbutrin Xl) 450 mg DAILY PO Last administered on 12/02/17at 07 :41; Start 11/28/17 at 09:00; Stop 12/02/17 at 16:52; Status DC Active Scripts Active Reported Zinc Sulfate 220 Mg Tablet 220 Mg PO DAILY Wellbutrin Xl (Bupropion Hcl) 150 Mg Tab.er.24h 150 Mg PO DAILY Administer with 300mg for total daily dose of 450mg Wellbutrin Xl (Bupropion Hcl) 300 Mg Tab.er.24h 300 Mg PO DAILY Administer with 150mg tab for total daily dose of 450mg Vitamin A & D Ointment (Vits A & D/White Pet/Lanolin) 56.7 Gm Oint...g. 1 Jerome TP PRN Q1HR PRN Tablet ( Vit#96/Ferrous Fum/Fa) 1 Each Tablet 1 Tab PO DAILY NICODERM CQ 21mg (Nicotine) 1 Each Patch.td24 1 Patch TD DAILY Discontinue if Smoking Resumes Mirtazapine 7.5 Mg Tablet 7.5 Mg PO QHS Analgesic [place] (Methyl Salicylate/Menthol) 28 Gm Oint...g. 1 Jerome TP PRN QID PRN Mag-Al Plus Xs Suspension (Mag Hydrox/Al Hydrox/Simeth) 30 Ml Oral.susp 15 Ml PO PRN AFTMEALHC PRN Milk Of Magnesia (Magnesium Hydroxide) 400 Mg/5 Ml Oral.susp 2,400 Mg PO PRN QHS PRN Culturelle (Lactobacillus Rhamnosus Gg) 1 Each Capsule 1 Cap PO BID Clotrimazole-Betamethasone Crm (Clotrimazole/Betamethasone Dip) 15 Gm Cream..g. 1 Applic TP BID Apply to Bilateral Feet BID Cefpodoxime Proxetil 200 Mg Tablet 200 Mg PO BID 2 Days Ascorbic Acid 500 Mg Tablet 500 Mg PO DAILY Calmoseptine Ointment (Menthol/Zinc Oxide) 71 Gm Oint...g. 1 Jerome TP BID Duoneb 0.5-3(2.5) Mg/3 Ml (Albuterol/Ipratropium) 3 Ml Ampul.neb 3 Ml NEB Q4HRS W/A Mucinex (Guaifenesin) 600 Mg Tablet.er 600 Mg PO BID Pepcid (Famotidine) 20 Mg Tablet 20 Mg PO DAILY Albuterol Sulfate Neb Soln (Albuterol Sulfate) 2.5 Mg/3 Ml Vial.neb 2.5 Mg NEB PRN Q4HRS PRN Tylenol (Acetaminophen) 325 Mg Tablet 650 Mg PO PRN Q6HRS PRN I have reviewed the current psychotropics carefully including drug interactions. Risk benefit ratio favors no change other than as noted in my dictated progress note. Diagnosis: Problems: (1) Major depressive disorder, recurrent episode (2) Anxiety disorder DEMETRIUS JURADO MD Dec 02, 2017 17:34
--- NOTE | 2017-12-03 00:01 | PN ---
DATE: 11/30/2017 PSYCHIATRIC PROGRESS NOTE This late entry 11/30/2017 covers elements not covered in my initial note of 11/30/2017. SUBJECTIVE: Met with the patient in the evening of 11/30/2017. Overall, the patient remains somewhat withdrawn, but much more awake, alert. She complains of right hip pain, is in a wheelchair, received Tylenol. REVIEW OF SYSTEMS: No CV, , Pulmonary, eye system symptoms on review. She does have the shortness of breath, remains on O2 supplements. MENTAL STATUS EXAM: Reasonably oriented. Speech is coherent, has some latency. Abstraction fair, computation is impaired, language function intact, attention span short. Mood and affect is less withdrawn. No suicidal or homicidal ideation. Her family visited her on 11/30/2017. LABORATORY DATA: Reviewed. IMPRESSION: Major depressive disorder with psychotic features, in partial remission. Rest unchanged. PLAN: Continue psychotropics mentioned in my initial note, Wellbutrin and Remeron. DEMETRIUS JURADO MD DR: OMAR/denny JOB#: [id number] / [id number]
--- NOTE | 2017-12-03 01:37 | PN ---
DATE: 12/01/2017 This late entry 12/01/2017 covers elements not covered in my initial note 12/01/2017. SUBJECTIVE: The patient seen individually in the evening, staffed in the morning. She remains somewhat withdrawn, sits alone. No participation in groups, takes her oxygen off at times and O2 drops. I addressed this with her individually. She minimizes this, but states she would be cognizant of it going forward. Sleeping average 5 hours, slept 4-1/4 hours previous evening. Often sitting on the table head on the table. REVIEW OF SYSTEMS: Ambulation impaired, in wheelchair. Some shortness of breath, on O2 supplements. No CV, , GI system symptoms on review. MENTAL STATUS EXAM: Reasonably oriented. Speech has some latency, coherent. Abstraction fair, computation impaired, language function intact. Mood and affect somewhat brighter. LABORATORY DATA: Reviewed. IMPRESSION: Major depressive disorder with psychotic features. Rest unchanged. PLAN: Continue current psychotropics. Defer medical management, possible hospice care to Dr. Steward. MAN Mohsen JURADO MD DR: OMAR/denny JOB#: [id number] / [id number]
--- NOTE | 2017-12-03 21:26 | DS ---
DATE OF DISCHARGE: 12/02/2017 This late entry 12/02/2017 covers elements not covered in my initial note 12/02/2017. REASON FOR ADMISSION: Please refer to the admission history for details. Briefly, the patient is a 67-year-old female referred to us from [facility] where she presented from home on account of worsening symptoms of depression, withdrawal from activities, refusing to use oxygen, failure of self-care. She is appearing more confused, demented, verbally abusive to staff, noncompliant with medications. She lives at home with significant other who reportedly was not caring for her. She lost a significant amount of weight. She had been treated for pneumonia on 11/09/2017. SIGNIFICANT FINDINGS AND CLINICAL COURSE: Following admission, the patient was seen daily individually by myself from a psychiatric standpoint, medical followup per Dr. Steward/Dr. Encinas. She is quite withdrawn, apathetic, amotivated, head on the table in front of her, most time not interactive or verbally communicating with anyone. She is extremely depressed. Adjustments were made in her psychotropics. She seemed to respond to a combination of Wellbutrin-XL 450 mg a day, Remeron 7.5 mg p.o. at bedtime. Mood appeared to improve. She was more interactive, verbal, still somewhat tired. Lung mass was detected on workup per Dr. Encinas/Dr. Steward and they informed the family who chose not to inform her, at least not while she was on our unit. Nevertheless, from a psychiatric standpoint, mood improved. No suicidal or homicidal ideation at discharge and she was able to be more interactive helping for care for herself. CONDITION AT DISCHARGE: Improved. REVIEW OF SYSTEMS: Prior to discharge on 12/02/2017, ambulation impaired, in wheelchair, shortness of breath on O2 supplements. No CV, , eye, ENT system symptoms on review. MENTAL STATUS EXAM: Reasonably oriented. Speech is coherent, has some latency. Abstraction fair, computation impaired, language function intact, attention span short. Mood and affect somewhat withdrawn. LABORATORY DATA: Reviewed. FINAL DIAGNOSES: Major depressive disorder, in partial remission; anxiety disorder, unspecified; cognitive disorder, unspecified. Rest unchanged from admission including a newly detected lung mass. The patient was discharged at 3:30. MEDICATIONS: Please refer to the [facility] for discharge psychotropic medications. Family opted to take her home with a followup in [place] from a psychiatric and medical standpoint. DEMETRIUS JURADO MD DR: OMAR/denny JOB#: [id number] / [id number]
== END 2017-12-02 16:52 | disposition hospice, home (50) | DRG 56 ==
LOC: GEROPSY 11-19 12:00
PROVIDERS: ADMIT Psychiatry & Neurology Psychiatry; ATTEND Psychiatry & Neurology Psychiatry
DX: G30.9 Alzheimer's disease, unspecified (principal); E41 Nutritional marasmus; J18.9 Pneumonia, unspecified organism; F33.3 Major depressive disorder, recurrent, severe with psychotic symptoms; E43 Unspecified severe protein-calorie malnutrition; I48.91 Unspecified atrial fibrillation; F10.27 Alcohol dependence with alcohol-induced persisting dementia; F01.51 Vascular dementia, unspecified severity, with behavioral disturbance; R45.851 Suicidal ideations; J44.0 Chronic obstructive pulmonary disease with (acute) lower respiratory infection; F02.81 Dementia in other diseases classified elsewhere, unspecified severity, with behavioral disturbance; F17.210 Nicotine dependence, cigarettes, uncomplicated; K21.9 Gastro-esophageal reflux disease without esophagitis; F41.9 Anxiety disorder, unspecified; E78.5 Hyperlipidemia, unspecified; I10 Essential (primary) hypertension; K59.09 Other constipation; G89.29 Other chronic pain; F63.9 Impulse disorder, unspecified; Z91.14 Patient's other noncompliance with medication regimen; Z68.21 Body mass index [BMI] 21.0-21.9, adult; Z90.710 Acquired absence of both cervix and uterus; I25.2 Old myocardial infarction; Z82.49 Family history of ischemic heart disease and other diseases of the circulatory system; Z88.8 Allergy status to other drugs, medicaments and biological substances
CPT/HCPCS: 36415; 36600; 71045; 71250; 73502; 80053; 80061; 81001; 82306; 82607; 82803; 83036; 83540; 83550; 83605; 83735; 83880; 84436; 84443; 84480; 85025; 86593; 87040; 87070; 87205; 90686; 93005; 93970; 94640; 94642; 99406; J0696; J1650; J7512; J7620; 97116; 97535